=== PATIENT | female | born 1985 | race Caucasian/White ===

== ENCOUNTER 2021-07-17 10:43 | Outpatient (REF) | payer SELFPAY ==
[2021-07-17 13:24] LABS: Binax Internal Control QC Valid; Binax Now Covid-19 Ag Negative (Negative)
== END 2021-07-17 10:44 | disposition home or self-care (01) ==
LOC: HO.LAB 10:43
PROVIDERS: Visit Provider Internal Medicine
DX: Z20.822 Contact with and (suspected) exposure to COVID-19 (principal)
CPT/HCPCS: C9803

== ENCOUNTER 2022-06-06 08:06 | Outpatient (REF) | payer OTHER, SELFPAY ==
[2022-06-06 11:17] LABS: MANUAL DIFF FLAG NO
[2022-06-06 11:27] LABS: Basophils Absolute Auto 0.1 X10*3/uL (0.0-0.2); Basophils Percent Auto 0.8 % (0-2); Eosinophils Absolute Auto 0.6 X10*3/uL (0.0-0.4); Eosinophils Percent Auto 5.2 % (0-4); Hematocrit 44.4 % (37.0-47.0); Imm Gran Abs Auto 0.24 X10*3/uL (0.00-0.03); Imm Gran Pct Auto 1.9 % (0.0-0.4); Lymphocytes Percent Auto 32.5 % (20-40); Mean Corpuscular HGB Conc 31.5 g/dl (31.0-35.0); Mean Corpuscular Hemoglobin 29.9 pg (27.0-33.0); Mean Corpuscular Volume 94.7 fL (80.0-98.0); Mean Platelet Volume 9.5 fL (9.4-12.3); Monocytes Absolute Auto 0.6 X10*3/uL (0.1-1.2); Neutrophils Absolute Auto 6.7 x10*3/uL (2.0-8.3); Neutrophils Percent Auto 54.6 % (45-73); Platelet Count 352 X10*3/uL (160-400); Red Blood Count 4.69 X10*6/uL (4.20-5.50); Red Cell Distribution Width 13.1 % (11.0-16.0); White Blood Count 12.4 X10*3/uL (4.8-10.8)
[2022-06-06 12:11] LABS: Alanine Aminotransferase 17 U/L (0-31); Alkaline Phosphatase 117 U/L (39-117); Anion Gap 11 (12-20); Aspartate Amino Transferase 12 U/L (5-31); Bilirubin Total 0.2 mg/dL (0.0-1.0); Blood Urea Nitrogen 9 mg/dL (9-16); Calcium 9.5 mg/dL (8.4-10.2); Carbon Dioxide 27 mmol/L (22-29); Chloride 103 mmol/L (96-108); Cholesterol 158 mg/dL; Estimated Glomerular Filt Rate > 60; Glucose Fasting 88 mg/dL (60-99); HDL Cholesterol 36 mg/dL; LDL Cholesterol Calculated 96 mg/dl; Potassium 4.4 mmol/L (3.3-5.1); Sodium 137 mmol/L (135-145); TSH reflex Free T4 2.24 uIU/mL (0.32-4.0); Total Protein 6.9 g/dL (6.5-8.0); Triglycerides 132 mg/dL
[2022-06-06 12:15] LABS: Vitamin B12 245 pg/mL (200-900)
[2022-06-11 13:13] LABS: Vitamin D 25-OH, D2 <4 ng/mL; Vitamin D 25-OH, D3 24 ng/mL; Vitamin D 25-OH, Total 24 ng/mL (30-100)
== END 2022-06-06 08:07 | disposition home or self-care (01) ==
LOC: HO.HMGCLDS 08:06
PROVIDERS: PCP Internal Medicine; Visit Provider Internal Medicine
DX: Z00.01 Encounter for general adult medical examination with abnormal findings (principal); F31.9 Bipolar disorder, unspecified; F41.0 Panic disorder [episodic paroxysmal anxiety]; E66.01 Morbid (severe) obesity due to excess calories
CPT/HCPCS: 36415; 80053; 80061; 82306; 82607; 84443; 85025

== ENCOUNTER 2022-10-24 13:20 | Outpatient (REF) | payer OTHER, SELFPAY ==
[2022-10-31 04:44] LABS: HPV mRNA E6/E7 rflx Not Detected (Not Detected)
== END 2022-10-24 13:21 | disposition home or self-care (01) ==
LOC: HO.LNP 13:20
PROVIDERS: PCP Internal Medicine; Visit Provider Advanced Practice Midwife
DX: Z01.419 Encounter for gynecological examination (general) (routine) without abnormal findings (principal); Z11.51 Encounter for screening for human papillomavirus (HPV)
CPT/HCPCS: 87624; 88142

== ENCOUNTER → 2023-01-02 15:32 | Outpatient (BNVA) | payer OTHER, SELFPAY | PROVIDERS: PCP Internal Medicine; Visit Provider Advanced Practice Midwife | DX: Z30.433 Encounter for removal and reinsertion of intrauterine contraceptive device (principal) | CPT/HCPCS: 58300; 58301; 81025; J7298 ==

== ENCOUNTER 2023-01-21 14:59 | Outpatient (AMB) | payer OTHER, SELFPAY ==
--- NOTE | 2023-01-21 15:03 | A.OFFPC_ITS ---
Vital Signs 01/21/23 15:05 Height 5 ft 7.5 in Weight 348 lb BMI 53.7 BP 118/80 Blood Pressure Location Lt brachial Position Sitting Pulse 92 Pulse Source Pulse Oximeter Pulse Oximetry (%) 99 Oxygen Delivery Method Room Air Intake Visit Reasons: 4 month follow up Allergies No Known Allergies Allergy (Verified 01/21/23 15:03) Medication List - Last Reconciled 01/21/23 by Kike Slaughter MD desvenlafaxine succinate ER 25 mg PO QAM imipramine HCl 100 mg PO BID levonorgestrel (Mirena) intrauterine lisinopril 20 mg PO QAM lorazepam 0.5 mg PO DAILY PRN Tobacco use date assessed: 01/21/23 Dental Screening Dental Screen Date: 01/21/23 Did you have a dental visit in the last 12 months?: Yes Did you have a dental problem in the last 6 months where you did not have access to dental care?: No Was dental information given to patient?: Patient has dentist HPI 4 month follow up HPI Details Patient is 37-year-old female was last seen May of last year for her initial visit and then did not come in for follow-up for radius reasons Patient has a history of bipolar disorder she is taking desvenlafaxine 25 mg, imipramine 100 mg b.i.d., and lorazepam only rarely. She was given 30 tablets in May and she has taken it only once Blood pressure is stable patient is on lisinopril 20 mg BMI is elevated patient is morbidly obese with BMI of 53.7 have difficulty losing weight. Patient says that she had her sister due to COVID related complications and after that she has gained confidence to be more independent She has finally started working as well. I have placed order for her to repeat labs and return for physical examination patient have appointment in May [facility], [facility] Medical History Encounter for IUD removal and reinsertion H/O bipolar disorder History of anxiety Surgical History Hx of section Hx of cholecystectomy Family History Father Mental health disorder Maternal Grandmother Mental health disorder Social History Housing: House Patient Tobacco Use Status: Current someday Tobacco user e-Cigarette/Vaping Use: Currently Using Substance Use Type: Marijuana service: No Current occupational status: unemployed Sexual orientation: Straight/Heterosexual Gender identity: Female Cognitive needs: No Hearing needs: No Vision needs: Yes Questionnaire PHQ-9 Over the last 2 weeks, how often have you been bothered by any of the following problems? 1. Little interest or pleasure in doing things: more than half the days 2. Feeling down, depressed, or hopeless: more than half the days 3. Trouble falling or staying asleep, or sleeping too much: several days 4. Feeling tired or having little energy: several days 5. Poor appetite or overeating: several days 6. Feeling bad about yourself - or that you are a failure or have let yourself or your family down: nearly every day 8. Moving or speaking so slowly that other people could have noticed. Or the opposite - being so fidgety or restless that you have been moving around a lot more than usual: more than half the days 9. Thoughts that you would be better off or of hurting yourself in some way: more than half the days Source: Developed by Drs. Gabriel Glover, Sabina Betts, Manish Chaudhry and colleagues, with an educational piper from [employer]. Thrive Questionnaire Date Thrive assessed: 01/21/23 I am a: Patient What is your living situation today?: I have a steady place to live Within the past 12 months, did the food you bought not last and you didn't have the money to get more?: Never true Within the past 12 months, did you worry whether your food would run out before you got money to buy more?: Never true Do you have trouble paying for medicines?: No Do you have trouble getting transportation to medical appointments?: No Do you have trouble paying your heating and electricity bill?: No Do you have trouble taking care of your child, family member or friend?: No Do you have trouble with day-to-day activities such as bathing, preparing meals, shopping, managing finances, etc.?: No Are you currently unemployed and looking for a job?: No Are you interested in more education?: No AUDIT C Alcohol Use Questionnaire (AUDIT-C) 1. How often do you have a drink containing alcohol?: Never Total Score: 0 SALVADOR-7 AMB Questionnaire SALVADOR-7 Date SALVADOR - 7 assessed: 01/21/23 Feeling nervous, anxious, or on edge: 2 = More than half the days Not being able to stop or control worryin = More than half the days Worrying too much about different things: 2 = More than half the days Trouble relaxin = Several days Being so restless that it is hard to sit still: 2 = More than half the days Becoming easily annoyed or irritable: 2 = More than half the days Feeling afraid as if something awful might happen: 0 = Not at all Total SALVADOR-7 score (0-4 normal; 5-9 mild; 10-14 moderate; 15-21 severe): 11 Source: Developed by Drs. Gabriel Glover, Sabina Betts, Manish Chaudhry and colleagues, with an educational piper from [employer]. Review of Systems Const Denies chills and Denies fever(s) ENT Denies epistaxis and Denies nasal discharge Card Denies chest pain Resp Denies chest congestion, Denies cough and Denies hemoptysis GI Denies diarrhea and Denies nausea Skin/Breast Denies rash Neuro Reports no additional complaints Psych Reports no additional complaints Endo Reports no additional complaints Physical exam (Primary Care) Vital Signs: Last Vital Signs Pulse 92 01/21/23 15:05 BP 118/80 01/21/23 15:05 Pulse Ox 99 01/21/23 15:05 Oxygen Delivery Method Room Air 01/21/23 15:05 BMI result Body Mass Index 53.7 Tobacco/Smoking Status: Tobacco use Status Tobacco use date assessed 01/21/23 01/21/23 15:03 Patient Tobacco Use Status Current someday Tobacco 01/21/23 15:03 e-Cigarette/Vaping Use Currently Using 01/21/23 15:03 Thrive Assessment: Date of Thrive Assessment Date Thrive assessed 01/21/23 01/21/23 15:13 Const General: cooperative, comfortable and no acute distress Orientation/consciousness: patient oriented x3 HENMT Head: Yes normocephalic Eyes General: appearance normal, both eyes and all related structures Neck Neck: Yes supple Resp Effort & Inspection: normal respiratory effort, no cough and no stridor Cardio Rhythm: regular rhythm Heart sounds: S1 normal heart sound present and S2 normal heart sound present Skin General skin exam: turgor normal Neuro General: patient oriented x3, tone normal and moves all extremities Extrem Right lower extremity: no edema Left lower extremity: no edema Assessment and Plan Assessment & Plan (1) Major depression, recurrent: Code(s): F33.9 - Major depressive disorder, recurrent, unspecified (2) Bipolar 1 disorder: Code(s): F31.9 - Bipolar disorder, unspecified (3) Panic anxiety syndrome: Code(s): F41.0 - Panic disorder [episodic paroxysmal anxiety] (4) Morbid obesity due to excess calories: Code(s): E66.01 - Morbid (severe) obesity due to excess calories Plan Patient is 37-year-old female was last seen May of last year for her initial visit and then did not come in for follow-up for radius reasons Patient has a history of bipolar disorder she is taking desvenlafaxine 25 mg, imipramine 100 mg b.i.d., and lorazepam only rarely. She was given 30 tablets in May and she has taken it only once Blood pressure is stable patient is on lisinopril 20 mg BMI is elevated patient is morbidly obese with BMI of 53.7 have difficulty losing weight. Patient says that she had her sister due to COVID related complications and after that she has gained confidence to be more independent She has finally started working as well. I have placed order for her to repeat labs and return for physical examination patient have appointment in May Orders: Orders Complete Blood Count Auto Diff Today E66.01 - Morbid (severe) obesity due to excess calories, F31.9 - Bipolar disorder, unspecified, F33.9 - Major depressive disorder, recurrent, unspecified, F41.0 - Panic disorder [episodic paroxysmal anxiety] Comprehensive [place]. Panel Fast Today E66.01 - Morbid (severe) obesity due to excess calories, F31.9 - Bipolar disorder, unspecified, F33.9 - Major depressive disorder, recurrent, unspecified, F41.0 - Panic disorder [episodic paroxysmal anxiety] Lipid Panel Today E66.01 - Morbid (severe) obesity due to excess calories, F31.9 - Bipolar disorder, unspecified, F33.9 - Major depressive disorder, recurrent, unspecified, F41.0 - Panic disorder [episodic paroxysmal anxiety] TSH reflex Free T4 Today E66.01 - Morbid (severe) obesity due to excess calories, F31.9 - Bipolar disorder, unspecified, F33.9 - Major depressive disorder, recurrent, unspecified, F41.0 - Panic disorder [episodic paroxysmal anxiety] Medications: Changed From imipramine HCl 100 mg PO BID To imipramine HCl 100 mg (2 x 50 mg) PO BID 360 tabs 0RF 90 days From lisinopril 20 mg PO QAM 30 tabs 1RF To lisinopril 20 mg PO QAM 90 tabs 0RF 90 days From desvenlafaxine succinate ER 25 mg PO QAM 30 tabs 0RF To desvenlafaxine succinate ER 25 mg PO QAM 90 tabs 0RF 90 days Coding Level of Care Code Est Pt Level 4 (47154) Diagnoses Major depression, recurrent F33.9 Bipolar 1 disorder F31.9 Panic anxiety syndrome F41.0 Morbid obesity due to excess calories E66.01
[2023-01-21 15:05] VITALS: BP 118/80; PULSE 92; O2SAT 99; BMI 53.7
== END 2023-01-21 16:15 | disposition home or self-care (01) ==
PROVIDERS: Visit Provider Internal Medicine
DX: F31.9 Bipolar disorder, unspecified (principal); E66.01 Morbid (severe) obesity due to excess calories; Z68.36 Body mass index [BMI] 36.0-36.9, adult; F41.0 Panic disorder [episodic paroxysmal anxiety]
CPT/HCPCS: 99214

== ENCOUNTER 2023-01-22 07:20 | Outpatient (REF) | payer OTHER, SELFPAY ==
[2023-01-22 11:23] LABS: MANUAL DIFF FLAG NO
[2023-01-22 11:47] LABS: Basophils Absolute Auto 0.1 X10*3/uL (0.0-0.2); Basophils Percent Auto 0.9 % (0-2); Eosinophils Absolute Auto 0.5 X10*3/uL (0.0-0.4); Eosinophils Percent Auto 4.2 % (0-4); Hematocrit 43.9 % (37.0-47.0); Hemoglobin 13.9 g/dl (12.0-16.0); Imm Gran Abs Auto 0.47 X10*3/uL (0.00-0.03); Imm Gran Pct Auto 3.8 % (0.0-0.4); Lymphocytes Absolute Auto 3.3 X10*3/uL (1.2-4.9); Lymphocytes Percent Auto 27.1 % (20-40); Mean Corpuscular HGB Conc 31.7 g/dl (31.0-35.0); Mean Corpuscular Hemoglobin 29.8 pg (27.0-33.0); Mean Platelet Volume 9.6 fL (9.4-12.3); Monocytes Absolute Auto 0.7 X10*3/uL (0.1-1.2); Monocytes Percent Auto 5.6 % (2-11); Neutrophils Absolute Auto 7.2 x10*3/uL (2.0-8.3); Neutrophils Percent Auto 58.4 % (45-73); Platelet Count 335 X10*3/uL (160-400); Red Blood Count 4.67 X10*6/uL (4.20-5.50); White Blood Count 12.3 X10*3/uL (4.8-10.8)
[2023-01-22 12:08] LABS: Alanine Aminotransferase 26 U/L (0-31); Albumin Level 3.9 g/dL (3.5-5.0); Alkaline Phosphatase 106 U/L (39-117); Aspartate Amino Transferase 18 U/L (5-31); Bilirubin Total 0.3 mg/dL (0.0-1.0); Blood Urea Nitrogen 9 mg/dL (9-16); Calcium 9.5 mg/dL (8.4-10.2); Chloride 106 mmol/L (96-108); Cholesterol 154 mg/dL; Estimated Glomerular Filt Rate > 60; Glucose Fasting 89 mg/dL (60-99); HDL Cholesterol 43 mg/dL; LDL Cholesterol Calculated 97 mg/dl; Potassium 4.5 mmol/L (3.3-5.1); Sodium 139 mmol/L (135-145); Total Protein 7.3 g/dL (6.5-8.0); Triglycerides 74 mg/dL
[2023-01-22 12:28] LABS: TSH reflex Free T4 3.31 uIU/mL (0.32-4.0)
[2023-01-22 18:09] LABS: Carbon Dioxide 23 mmol/L (22-29)
== END 2023-01-22 07:21 | disposition home or self-care (01) ==
LOC: HO.HMGCLDS 07:20
PROVIDERS: PCP Internal Medicine; Visit Provider Internal Medicine
DX: E66.01 Morbid (severe) obesity due to excess calories (principal); F31.9 Bipolar disorder, unspecified; F41.0 Panic disorder [episodic paroxysmal anxiety]
CPT/HCPCS: 36415; 80053; 80061; 84443; 85025

== ENCOUNTER 2023-02-05 15:04 | Outpatient (AMB) | payer OTHER, SELFPAY ==
[2023-02-05 15:18] VITALS: BP 114/74; BMI 53.7
--- NOTE | 2023-02-05 15:18 | A.OFFVIS_ITS ---
Intake Vital Signs 02/05/23 15:18 Height 5 ft 7.5 in Weight 348 lb BMI 53.7 BP 114/74 Intake Visit Reasons: IUD check Intake Note: The patient agreed to use of a medical billing coordinator during this encounter. Scribed for DAPHNE Hernandez by Gayathri Rico medical billing coordinator, on 02/05/2023 at 3:38 pm EST. High Speed Printer Operator: High Speed Printer Operator Present (Amy) Accompanied by: Daughter Allergies No Known Allergies Allergy (Verified 02/05/23 15:18) HPI HPI Comments History of Present Illness Details She is presenting for IUD check. She had the Mirena IUD placed on 01/02/23. She has no concerns. Denies pain, abnormal discharge, or other concerns. [facility] Medical History Encounter for IUD removal and reinsertion H/O bipolar disorder History of anxiety Surgical History Hx of section Hx of cholecystectomy Family History Father Mental health disorder Maternal Grandmother Mental health disorder Social History Housing: House Patient Tobacco Use Status: Current someday Tobacco user e-Cigarette/Vaping Use: Currently Using Substance Use Type: Marijuana service: No Current occupational status: unemployed Sexual orientation: Straight/Heterosexual Gender identity: Female Cognitive needs: No Hearing needs: No Vision needs: Yes Female Reproductive History Menstrual control method: progestin IUCD (Mirena 01/02/23, IUD strings visible 02/05/23) Physical Exam Vital Signs: Last Vital Signs BP 114/74 02/05/23 15:18 BMI result Body Mass Index 53.7 Const General: cooperative, healthy appearing, comfortable, no acute distress, well developed, alert and awake Other: large vulvar pannus; more on the right side General: Yes bladder normal to palpation External Female Exam: normal external appearance and normal appearance of the urethra Speculum Exam - Vagina: normal appearance of the vagina, normal palpation and normal vaginal discharge Speculum Exam - Cervix: normal appearance of the cervix, normal palpation and Other cervical findings present (IUD strings visible) Bimanual exam- vagina & uterus: normal bimanual exam, normal palpation, bladder normal to palpation and normal palpation Bimanual Exam- Adnexa, other: normal adnexae and no masses Assessment & Plan Assessment & Plan (1) IUD surveillance: Code(s): Z30.431 - Encounter for routine checking of intrauterine contraceptive device Plan: Discussed: Bleeding tends to taper down, some women do not bleed at all for months, some have unscheduled and random bleeding. Monitor bleeding and cramps for the next 1-2 months and contact office with any concerns or questions. All of her questions and concerns were addressed to the best of my ability and shared decision making. She is agreeable to plan of care. Coding Level of Care Code Est Pt Level 2 (07223) Diagnoses IUD surveillance Z30.431
== END 2023-02-05 15:45 | disposition home or self-care (01) ==
LOC: HO.HWS 15:05
PROVIDERS: PCP Internal Medicine; Visit Provider Advanced Practice Midwife
DX: Z30.431 Encounter for routine checking of intrauterine contraceptive device (principal)
CPT/HCPCS: 99212

== ENCOUNTER → 2023-02-05 15:04 | Outpatient (BNVA) | payer OTHER, SELFPAY | PROVIDERS: PCP Internal Medicine; Visit Provider Advanced Practice Midwife ==

== ENCOUNTER 2023-02-26 08:11 | Outpatient (AMB) | payer OTHER, SELFPAY ==
--- NOTE | 2023-02-26 08:21 | AM.OFFWIN_ITS ---
Intake Vital Signs 02/26/23 08:22 Height 5 ft 7.5 in Weight 350 lb BMI 54.0 BP 130/72 Blood Pressure Location Rt brachial Position Sitting Pulse 112 H Pulse Source Pulse Oximeter Temp 98.9 F Temp Source Temporal Artery Scan Pulse Oximetry (%) 97 Oxygen Delivery Method Room Air Intake Visit Reasons: EP Flu like symptms [phone] Intake Note: pt is here for c/o cold symptoms since friday afternoon, fever, body aches, congestion Patient Tobacco Use Status: Current someday Tobacco user Allergies No Known Allergies Allergy (Verified 02/26/23 09:03) Medication List - Last Reconciled 02/26/23 by Thierno Tripp MD desvenlafaxine succinate ER 25 mg PO QAM 90 days imipramine HCl 100 mg (2 x 50 mg) PO BID 90 days levonorgestrel (Mirena) intrauterine lisinopril 20 mg PO QAM 90 days lorazepam 0.5 mg PO DAILY PRN Do you need a note to return to daycare/school/sports/work: Yes HPI EP Flu like symptms [phone] HPI Details Patient presents for a sick visit. Reporting symptoms of sinus congestion, sore throat and difficulty swallowing. Low-grade fever. No family member is sick. No recent travel. Patient reports symptoms of malaise and fatigue. [facility] Medical History Encounter for IUD removal and reinsertion H/O bipolar disorder History of anxiety Surgical History Hx of section Hx of cholecystectomy Family History Father Mental health disorder Maternal Grandmother Mental health disorder Social History Housing: House Patient Tobacco Use Status: Current someday Tobacco user e-Cigarette/Vaping Use: Currently Using Substance Use Type: Marijuana service: No Current occupational status: unemployed Sexual orientation: Straight/Heterosexual Gender identity: Female Cognitive needs: No Hearing needs: No Vision needs: Yes Physical Exam Vital Signs: Last Vital Signs Temp 98.9 F 08/23/23 08:22 Pulse 112 H 02/26/23 08:22 BP 130/72 02/26/23 08:22 Pulse Ox 97 02/26/23 08:22 Oxygen Delivery Method Room Air 02/26/23 08:22 BMI result Body Mass Index 54.0 Const General: cooperative and healthy appearing Nutritional Appearance: well nourished Orientation/consciousness: patient oriented x3 Limitations: no limitations HEENT Head: Yes normal to inspection Eyes General: appearance normal, both eyes and all related structures Neck Neck: Yes normal visual inspection Chest Chest palpation & inspection: normal palpation of entire chest wall Resp Effort & Inspection: normal respiratory effort Neuro General: patient oriented x3 Assessment & Plan Assessment & Plan (1) Upper respiratory tract infection: Code(s): J06.9 - Acute upper respiratory infection, unspecified Plan: Antibiotics ordered. Increase fluid intake. Tylenol for aches and pains. If symptoms worsen, follow-up here for a recheck. Coding Level of Care Code Est Pt Level 3 (35537) Diagnoses Upper respiratory tract infection J06.9
[2023-02-26 08:22] VITALS: BP 130/72; PULSE 112; TEMP 37.2; O2SAT 97; BMI 54.0
== END 2023-02-26 09:03 | disposition home or self-care (01) ==
PROVIDERS: PCP Internal Medicine; Visit Provider Internal Medicine
DX: J06.9 Acute upper respiratory infection, unspecified (principal)
CPT/HCPCS: 99213

== ENCOUNTER 2023-05-23 09:51 | Outpatient (AMB) | payer OTHER, SELFPAY ==
--- NOTE | 2023-05-23 09:55 | MHC.PC.OV ---
Vital Signs 05/23/23 09:56 Height 5 ft 7.5 in Weight 359 lb 2 oz BMI 55.4 BP 132/76 Blood Pressure Location Rt brachial Position Sitting Pulse 105 H Pulse Source Pulse Oximeter Pulse Oximetry (%) 99 Oxygen Delivery Method Room Air Intake Visit Reasons: Annual PE Allergies No Known Allergies Allergy (Verified 05/23/23 09:59) Medication List - Last Reconciled 05/23/23 by Kike Slaughter MD desvenlafaxine succinate ER 25 mg PO QAM 90 days imipramine HCl 100 mg (2 x 50 mg) PO BID 90 days levonorgestrel (Mirena) intrauterine lisinopril 20 mg PO QAM 90 days lorazepam 0.5 mg PO DAILY PRN Tobacco use date assessed: 05/23/23 HPI Annual PE HPI Details Patient is a 37-year-old female came in today for physical examination Patient have a diagnosis of bipolar disorder since the 8th grade She was seeing a psychiatrist who has retired Currently all her medications are through PCP office, patient knows to have a follow-up every 3 months. She is also morbidly obese at 55.4 BMI, patient says that she went to weight loss program [facility] couple of years ago But they told her that they cannot help her. Patient id managed to lose some weight on her own. She is established with [facility] Labs are needed, order placed to be done fasting [facility] Medical History Encounter for IUD removal and reinsertion History of anxiety H/O bipolar disorder Surgical History Hx of section Hx of cholecystectomy Family History Father Mental health disorder Maternal Grandmother Mental health disorder Social History Housing: House Patient Tobacco Use Status: Current someday Tobacco user e-Cigarette/Vaping Use: Currently Using Substance Use Type: Marijuana service: No Current occupational status: unemployed Sexual orientation: Straight/Heterosexual Gender identity: Female Cognitive needs: No Hearing needs: No Vision needs: Yes Questionnaire PHQ-9 Over the last 2 weeks, how often have you been bothered by any of the following problems? 1. Little interest or pleasure in doing things: more than half the days 2. Feeling down, depressed, or hopeless: more than half the days 3. Trouble falling or staying asleep, or sleeping too much: several days 4. Feeling tired or having little energy: several days 5. Poor appetite or overeating: several days 6. Feeling bad about yourself - or that you are a failure or have let yourself or your family down: more than half the days 7. Trouble concentrating on things, such as reading the newspaper or watching television: several days 8. Moving or speaking so slowly that other people could have noticed. Or the opposite - being so fidgety or restless that you have been moving around a lot more than usual: more than half the days 9. Thoughts that you would be better off or of hurting yourself in some way: several days Total score: 13 Depression Screening Interpretation: Positive Depression Screening Follow-up: Existing condition and In treatment Depression Screening Done: Yes 05547 - PHQ-9 Billing: Yes Source: Developed by Drs. Gabriel Glover, Sabina Betts, Manish Chaudhry and colleagues, with an educational piper from [employer]. Thrive Questionnaire Date Thrive assessed: 01/21/23 AUDIT C Alcohol Use Questionnaire (AUDIT-C) 1. How often do you have a drink containing alcohol?: Monthly or less 2. How many drinks containing alcohol do you have on a typical day when you are drinking?: 1 or 2 3. How often do you have six or more drinks on one occasion?: Never Total Score: 1 Score Reviewed/Action Taken: No SALVADOR-7 AMB Questionnaire SALVADOR-7 Date SALVADOR - 7 assessed: 01/21/23 Source: Developed by Drs. Gabriel Glover, Manish Julio and colleagues, with an educational piper from [employer]. Review of Systems Const Denies chills, Denies fever(s) and Denies headache(s) Eyes Denies blurry vision ENT Denies headache(s), Denies nasal discharge, Denies nasal obstruction, Denies odynophagia and Denies sinus pain Card Denies chest pain at rest and Denies chest pain with activity Resp Denies cough and Denies hemoptysis GI Denies diarrhea, Denies odynophagia, Denies vomiting and Denies hematemesis Reports as per HPI Musc Denies abnormal gait Skin/Breast Reports as per HPI Neuro Denies Neuro-related abnormal movements, Denies Abnormal speech present, Denies abnormal gait, Denies headache(s) and Denies Sensory deficit (Neuro) Psych Denies mood swings and Denies paranoia Endo Reports as per HPI Braxton/Lymph Reports as per HPI Aller/Immun Reports as per HPI Physical exam (Primary Care) Vital Signs: Last Vital Signs Pulse 105 H 05/23/23 09:56 BP 132/76 05/23/23 09:56 Pulse Ox 99 05/23/23 09:56 Oxygen Delivery Method Room Air 05/23/23 09:56 BMI result Body Mass Index 55.4 Tobacco/Smoking Status: Tobacco use Status Tobacco use date assessed 05/23/23 05/23/23 09:59 Patient Tobacco Use Status Current someday Tobacco 05/23/23 09:58 e-Cigarette/Vaping Use Currently Using 05/23/23 09:58 PHQ-9: PHQ-9 Score PHQ-9: Total score 13 05/23/23 10:40 Depression Screening Interpretation: Positive Depression Screening Follow-up: Existing condition and In treatment Thrive Assessment: Date of Thrive Assessment Date Thrive assessed 01/21/23 05/23/23 09:58 Const General: cooperative, comfortable and no acute distress Orientation/consciousness: patient oriented x3 HENMT Head: Yes normocephalic and Yes atraumatic Eyes General: appearance normal, both eyes and all related structures Pupils: Equal, round and reactive pupils present EOM: EOMs intact bilaterally Neck Neck: Yes supple and No lymphadenopathy Thyroid: Thyroid normal Lymphatic: no lymphadenopathy noted Resp Effort & Inspection: normal respiratory effort and able to speak in complete sentences Auscultation: clear to auscultation bilaterally Cardio Heart sounds: S1 normal heart sound present and S2 normal heart sound present GI Palpation (GI): Soft to palpation and nontender Auscultation: normal bowel sounds General: Yes no CVA tenderness Back/Spine/Pelvis Back: no CVA tenderness Skin General skin exam: elasticity normal and turgor normal Neuro General: patient oriented x3 and gait normal Cranial nerves: Yes Equal, round and reactive pupils present Speech: No Abnormal speech present Sensory Exam: No Sensory deficit (Neuro) Coordination: Romberg test negative Extrem General: Yes normal exam except as noted and No edema Assessment and Plan Assessment & Plan (1) Encounter for general adult medical examination with abnormal findings: Code(s): Z00.01 - Encounter for general adult medical examination with abnormal findings (2) Major depression, recurrent: Code(s): F33.9 - Major depressive disorder, recurrent, unspecified Qualifiers: Active/Remission status: in partial remission Qualified Code(s): F33.41 - Major depressive disorder, recurrent, in partial remission (3) Bipolar 1 disorder: Code(s): F31.9 - Bipolar disorder, unspecified (4) Morbid obesity due to excess calories: Code(s): E66.01 - Morbid (severe) obesity due to excess calories (5) Panic anxiety syndrome: Code(s): F41.0 - Panic disorder [episodic paroxysmal anxiety] (6) Stress incontinence in female: Code(s): N39.3 - Stress incontinence (female) (male) Plan Patient is a 37-year-old female came in today for physical examination Patient have a diagnosis of bipolar disorder since the 8th grade She was seeing a psychiatrist who has retired Currently all her medications are through PCP office, patient knows to have a follow-up every 3 months. She is also morbidly obese at 55.4 BMI, patient says that she went to weight loss program [facility] couple of years ago But they told her that they cannot help her. Patient id managed to lose some weight on her own. She is established with [facility] Labs are needed, order placed to be done fasting Patient is complaining of leakage of urine when she coughs. She is already trying Kayjol exercises I have sent [facility] prescription to see that helps patient She is to get back to me in 3 weeks to update me Orders: Orders Comprehensive [place]. Panel Fast Today E66.01 - Morbid (severe) obesity due to excess calories, F31.9 - Bipolar disorder, unspecified, F33.9 - Major depressive disorder, recurrent, unspecified, F41.0 - Panic disorder [episodic paroxysmal anxiety], N39.3 - Stress incontinence (female) (male), Z00.01 - Encounter for general adult medical examination with abnormal findings TSH reflex Free T4 Today E66.01 - Morbid (severe) obesity due to excess calories, F31.9 - Bipolar disorder, unspecified, F33.9 - Major depressive disorder, recurrent, unspecified, F41.0 - Panic disorder [episodic paroxysmal anxiety], N39.3 - Stress incontinence (female) (male), Z00.01 - Encounter for general adult medical examination with abnormal findings Complete Blood Count Auto Diff Today E66.01 - Morbid (severe) obesity due to excess calories, F31.9 - Bipolar disorder, unspecified, F33.9 - Major depressive disorder, recurrent, unspecified, F41.0 - Panic disorder [episodic paroxysmal anxiety], N39.3 - Stress incontinence (female) (male), Z00.01 - Encounter for general adult medical examination with abnormal findings Lipid Panel Today E66.01 - Morbid (severe) obesity due to excess calories, F31.9 - Bipolar disorder, unspecified, F33.9 - Major depressive disorder, recurrent, unspecified, F41.0 - Panic disorder [episodic paroxysmal anxiety], N39.3 - Stress incontinence (female) (male), Z00.01 - Encounter for general adult medical examination with abnormal findings Medications: New solifenacin (Vesicare) 5 mg PO DAILY 30 tabs 0RF Urine incontinence 30 days Changed From lorazepam 0.5 mg PO DAILY PRN To lorazepam 0.5 mg PO DAILY PRN 30 tabs 0RF anxiety 90 days Refilled desvenlafaxine succinate ER 25 mg PO QAM 90 tabs 0RF 90 days imipramine HCl 100 mg (2 x 50 mg) PO BID 360 tabs 0RF 90 days lisinopril 20 mg PO QAM 90 tabs 0RF 90 days Coding Level of Care Code Est Pt Prev Care 18-39y(43424) Diagnoses Encounter for general adult medical examination with abnormal findings Z00.01 Recurrent major depressive disorder, in partial remission F33.41 Active/Remission status: in partial remission Bipolar 1 disorder F31.9 Morbid obesity due to excess calories E66.01 Panic anxiety syndrome F41.0 Stress incontinence in female N39.3
[2023-05-23 09:56] VITALS: BP 132/76; PULSE 105; O2SAT 99; BMI 55.4
== END 2023-05-23 10:35 | disposition home or self-care (01) ==
PROVIDERS: Visit Provider Internal Medicine
DX: Z00.00 Encounter for general adult medical examination without abnormal findings (principal); F31.9 Bipolar disorder, unspecified; E66.01 Morbid (severe) obesity due to excess calories; Z68.43 Body mass index [BMI] 50.0-59.9, adult; F41.0 Panic disorder [episodic paroxysmal anxiety]; N39.3 Stress incontinence (female) (male)
CPT/HCPCS: 99395

== ENCOUNTER 2023-06-16 09:17 | Outpatient (AMB) | payer OTHER, SELFPAY ==
--- NOTE | 2023-06-16 10:06 | MHC.OFFWIV ---
Intake Vital Signs 06/16/23 10:07 Height 5 ft 7.5 in Weight 157.85 kg BMI 53.7 BP 116/70 Blood Pressure Location Lt brachial Position Sitting Pulse 89 Pulse Source Pulse Oximeter Temp 97.5 F Temp Source Temporal Artery Scan Pulse Oximetry (%) 97 Oxygen Delivery Method Room Air Intake Visit Reasons: EST/cough fever [phone] Intake Note: pt is here today for cough fever started friday Patient Tobacco Use Status: Current someday Tobacco user Allergies No Known Allergies Allergy (Verified 06/16/23 10:06) Do you need a note to return to daycare/school/sports/work: Yes HPI HPI Comments History of Present Illness Details 37-year-old who female presents with fatigue, malaise, myalgias, cough, fevers Tmax 101 Fand chills that started 3 days ago suddenly..? Multiple cowerkers have kids at home who are sick w/ RSV.? Denies chest pain, shortness of breath, nausea, vomiting, abdominal pain, headache vision change, dizziness, weakness, changes in bowel or urinary habits Physical exam benign History and physical exam concerning for viral illness versus bronchitis versus flu versus COVID versus RSV.? Unlikely pneumonia, ACS, dissection, pulmonary embolism, acute respiratory distress Plan at this time viral testing will discharge patient home with supportive measures.? Educated patient on diagnosis and treatment plan, answered all question, patient verbalizes understanding.? At this time patient will be discharged home, advised to return with new or worsening symptoms.? Educated on worrisome signs and symptoms and when to return.? At this time I feel comfortable discharge home. [facility] Medical History Encounter for IUD removal and reinsertion History of anxiety H/O bipolar disorder Surgical History Hx of section Hx of cholecystectomy Family History Father Mental health disorder Maternal Grandmother Mental health disorder Social History Housing: House Patient Tobacco Use Status: Current someday Tobacco user e-Cigarette/Vaping Use: Currently Using Substance Use Type: Marijuana service: No Current occupational status: unemployed Sexual orientation: Straight/Heterosexual Gender identity: Female Cognitive needs: No Hearing needs: No Vision needs: Yes Review of Systems Const Details: Constitutional : No Weight loss, + Fever, + Chills, + Fatigue, + Malaise ENT/Mouth : No sore throat, No Rhinorrhea Eyes: No Eye Pain, No Swelling, No Redness Cardiovascular : No Chest Pain, No SOB, No Dyspnea on Exertion, No Orthopnea, No Edema, No Palpitations Respiratory : + Cough, No Sputum, No Wheezing Gastrointestinal : No Nausea, No Vomiting, No Diarrhea, No Constipation, No abdominal Pain, No Hematochezia, No Melena Genitourinary : No Dysuria, No Urinary Frequency, No Hematuria, Musculoskeletal : No joint pain, No Myalgias, No Joint Swelling Skin : No Skin Lesions, No rash Neuro : No Weakness, No Numbness, No Dizziness, No Headache Psych : No Anxiety/Panic, No Depression All other systems reviewed and are negative All systems reviewed & are unremarkable except as noted in HPI and below Physical Exam Vital Signs: Last Vital Signs Temp 97.5 F 06/16/23 10:07 Pulse 89 06/16/23 10:07 BP 116/70 06/16/23 10:07 Pulse Ox 97 06/16/23 10:07 Oxygen Delivery Method Room Air 06/16/23 10:07 BMI result Body Mass Index 53.7 vss Appearance: Alert.? Oriented X3.? No acute distress.? Head: Normocephalic, atraumatic, no step-offs or deformities Eyes: Pupils equal, round and reactive to light.? CVS: Normal heart rate and rhythm.? Pulses normal.? Respiratory: No respiratory distress.? Breath sounds normal.? Abdomen: Soft and nontender.? Skin: Skin warm and dry.? Normal skin color.? Normal skin turgor.? Extremities: No lower extremity edema.? No calf ttp. 5/5 strength to bilateral upper and lower extremities Neuro: Oriented X 3.? No motor deficit.? No sensory deficit. CN 2-12 intact Assessment & Plan Assessment & Plan (1) Viral illness: Code(s): B34.9 - Viral infection, unspecified Plan Take your medications as prescribed. If you were prescribed antibiotics today, it is important that you take your medication to their entirety, do not skip any doses, do not finish them early. Follow-up with your primary care provider this week. Return to the emergency department with new or worsening symptoms. Such as fevers, chills, chest pain, shortness of breath, nausea, vomiting, dizziness, headache, vision changes, lethargy In case of emergency call 911 Orders: Orders SARS-CoV2/FLU/RSV Today B34.9 - Viral infection, unspecified Medications: New prednisone 40 mg (2 x 20 mg) PO DAILY 10 tabs 0RF 5 days albuterol sulfate 90 mcg/actuation 2 puffs inhalation Q6H PRN 6.7 grams 0RF shortness of breath or wheezing Coding Level of Care Code Est Pt Level 3 (64292) Diagnoses Viral illness B34.9
[2023-06-16 10:07] VITALS: BP 116/70; PULSE 89; TEMP 36.4; O2SAT 97; BMI 53.7
== END 2023-06-16 10:36 | disposition home or self-care (01) ==
PROVIDERS: PCP Internal Medicine; Visit Provider Physician Assistant
DX: B34.9 Viral infection, unspecified (principal)
CPT/HCPCS: 99213

== ENCOUNTER 2023-06-16 13:39 | Outpatient (REF) | payer OTHER, SELFPAY ==
[2023-06-16 14:38] LABS: Influenza A PCR NEGATIVE (Negative); Influenza B PCR NEGATIVE (Negative); Resp Syncy Virus RNA Qual PCR POSITIVE (Negative); SARS COV2 PCR INHOUSE NEGATIVE (Negative)
== END 2023-06-16 13:40 | disposition home or self-care (01) ==
LOC: HO.HMGCLNP 13:39
PROVIDERS: Visit Provider Physician Assistant
DX: Z11.52 Encounter for screening for COVID-19 (principal); Z20.822 Contact with and (suspected) exposure to COVID-19; B34.9 Viral infection, unspecified
CPT/HCPCS: 0241U

== ENCOUNTER 2023-06-17 06:53 | Inpatient (IN) | payer OTHER, SELFPAY ==
[2023-06-17] VITALS (20 sets, daily range): BP systolic 127–172; BP diastolic 63–95; PULSE 87–115; RESP 15–26; TEMP 36.2–37.6; O2SAT 89–100; BMI 52.9
--- NOTE | ~2023-06-17 | XR_ITS ---
EXAMINATION: XR CHEST 2 VIEW CLINICAL INFORMATION: Cough, chest pain, shortness of breath COMPARISON: None TECHNIQUE: PA and lateral views of the chest obtained. FINDINGS: There are subtle patchy airspace opacities in both mid lung zones. There are no pleural effusions. The cardiomediastinal silhouette is unremarkable.. There are no pleural effusions. The cardiomediastinal silhouette is normal. XR/XR chest 2V IMPRESSION: Patchy bilateral perihilar opacities most suggestive of a viral pneumonitis or bronchopneumonia. Follow-up is suggested to confirm clearing.
[2023-06-17 07:25] LABS: MANUAL DIFF FLAG NO
[2023-06-17 07:30] LABS: Basophils Absolute Auto 0.1 X10*3/uL (0.0-0.2); Basophils Percent Auto 0.5 % (0-2); Eosinophils Percent Auto 0.1 % (0-4); Hematocrit 46.9 % (37.0-47.0); Hemoglobin 15.6 g/dl (12.0-16.0); Imm Gran Abs Auto 0.17 X10*3/uL (0.00-0.03); Imm Gran Pct Auto 1.4 % (0.0-0.4); Lymphocytes Absolute Auto 1.5 X10*3/uL (1.2-4.9); Lymphocytes Percent Auto 12.7 % (20-40); Mean Corpuscular HGB Conc 33.3 g/dl (31.0-35.0); Mean Corpuscular Hemoglobin 29.9 pg (27.0-33.0); Mean Corpuscular Volume 89.8 fL (80.0-98.0); Mean Platelet Volume 9.1 fL (9.4-12.3); Monocytes Absolute Auto 1.1 X10*3/uL (0.1-1.2); Monocytes Percent Auto 9.4 % (2-11); Neutrophils Absolute Auto 9.1 x10*3/uL (2.0-8.3); Neutrophils Percent Auto 75.9 % (45-73); Platelet Count 302 X10*3/uL (160-400); Red Blood Count 5.22 X10*6/uL (4.20-5.50); White Blood Count 11.9 X10*3/uL (4.8-10.8)
[2023-06-17 07:42] LABS: Alanine Aminotransferase 33 U/L (0-31); Albumin Level 4.5 g/dL (3.5-5.0); Alkaline Phosphatase 120 U/L (39-117); Anion Gap 15 (12-20); Aspartate Amino Transferase 23 U/L (5-31); Bilirubin Direct 0.2 mg/dL (0.0-0.5); Bilirubin Total 0.3 mg/dL (0.0-1.0); Blood Urea Nitrogen 7 mg/dL (9-16); Calcium 9.9 mg/dL (8.4-10.2); Carbon Dioxide 23 mmol/L (22-29); Chloride 104 mmol/L (96-108); Creatinine Clr Calc Pharmacy 157.2; Estimated Glomerular Filt Rate > 60; Glucose Random 117 mg/dL (60-115); Lipase 10 U/L (8-78); Potassium 3.4 mmol/L (3.3-5.1); Sodium 139 mmol/L (135-145); Total Protein 8.4 g/dL (6.5-8.0)
--- NOTE | 2023-06-17 07:57 | ECG_ITS ---
Test Reason : sob Blood Pressure : / mmHG Vent. Rate : 104 BPM Atrial Rate : 104 BPM P-R Int : 162 ms QRS Dur : 080 ms QT Int : 344 ms P-R-T Axes : 056 058 068 degrees QTc Int : 452 ms Sinus tachycardia Otherwise normal ECG No previous ECGs available Referred By: Jennie Choi Electronically Signed By:Amaury Ross
--- NOTE | 2023-06-17 08:02 | ED.GENADULT ---
HPI - General Adult General Chief complaint: Nausea/Vomiting/Diarrhea Stated complaint: Cold symptoms/ Vomiting/ Diarrhea Time Seen by Provider: 06/17/23 07:44 Source: patient and RN notes reviewed Mode of arrival: ambulatory Limitations: no limitations History of Present Illness HPI narrative: This is a 29-afos-idw-female, with a hx of bipolar disorder, anxiety, presenting to the emergency department with complaints of cough, fevers, diarrhea, nausea, vomiting, chest pain and shortness of breath x 5 days. Patient reports that the ago she felt a ?tickle in her throat? and a slight cough. She states that since then she has had intermittent fevers, max temp 102? temporally, with many episodes of diarrhea, greater than 10 episodes per day with vomiting. She is unable to keep down any fluids secondary to the cough and vomiting. She states that she works at [employer] and likely has been exposed to sick contacts. She reports that she had abdominal pain this morning at 2:00 a.m. which has since resolved. She also endorses constant chest pain, worsening with cough. She was seen at an urgent care yesterday and tested positive for RSV, was discharged on prednisone and inhaler. She has been unable to take the prednisone as she has been vomiting. And states that she is unsure how to use the inhaler as she has never had this before. She is a smoker, smokes 5-6 cigarettes a day, started smoking 8 months ago. Also with marijuana recreationally. No recent travel, surgery, hospitalization. No history of blood clots or cancer history. She has a hormonal IUD. No other complaints or concerns at this time. MD complaint: Cough, diarrhea, vomiting Onset (ago): day(s) Severity: moderate Quality: aching Pain Consistency: constant Relieving factors: none Exacerbating factors: none Associated symptoms: chest pain, cough, fever/chills, headaches, loss of appetite, malaise, nausea/vomiting and shortness of breath Treatments prior to arrival: none Related Data Home Medications Medication Instructions Recorded Confirmed levonorgestrel 21 mcg/24 hours (8 intrauterine 10/24/22 05/23/23 yrs) 52 mg intrauterine device (Mirena) Previous Rx's Medication Instructions Recorded desvenlafaxine succinate 25 mg 25 mg PO QAM 90 days #90 tabs 05/23/23 tablet,extended release 24 hr imipramine HCl 50 mg tablet 100 mg (2 x 50 mg) PO BID 90 days 05/23/23 #360 tabs lisinopril 20 mg tablet 20 mg PO QAM 90 days #90 tabs 05/23/23 lorazepam 0.5 mg tablet 0.5 mg PO DAILY PRN anxiety 90 05/23/23 days #30 tabs solifenacin 5 mg tablet (Vesicare) 5 mg PO DAILY Urine incontinence 06/03/23 30 days #30 tabs Allergies Allergy/AdvReac Type Severity Reaction Status Date / Time No Known Allergies Allergy Verified 06/16/23 10:06 Review of Systems Review of Systems: Yes all other systems are reviewed and are negative Constitutional: Constitutional: Reports as per [facility] Past Medical History Medical History Anxiety Morbid obesity Encounter for IUD removal and reinsertion History of anxiety H/O bipolar disorder Surgical History Hx of section Hx of cholecystectomy Family History Family History Father Mental health disorder Maternal Grandmother Mental health disorder Social History Social History Housing: House Patient Tobacco Use Status: Current someday Tobacco user Smoked in Last 30 Days: Yes e-Cigarette/Vaping Use: Currently Using Use of substances other than those prescribed or required for medical reasons: Yes Substance Use Type: Marijuana Advance Directives: No Advance Directives Information Provided: Yes Patient : No service: No Current occupational status: unemployed Sexual orientation: Straight/Heterosexual Gender identity: Female Cognitive needs: No Hearing needs: No Vision needs: Yes Physical Exam ED Vital Signs: Vital Signs - 24 hr 06/17/23 07:09 06/17/23 07:37 06/17/23 09:21 Temperature 98.9 F 99.6 F 98.3 F Pulse Rate 112 H 106 H 108 H Respiratory Rate 17 18 26 H Blood Pressure 172/95 H 131/88 142/77 H Pulse Oximetry 96 94 90 L Oxygen Delivery Method Room Air Room Air Oxygen Flow Rate 06/17/23 09:45 06/17/23 10:11 06/17/23 10:12 Temperature 98.4 F Pulse Rate 115 H 113 H Respiratory Rate 26 H 26 H Blood Pressure 142/82 H Pulse Oximetry 100 89 L 94 Oxygen Delivery Method Room Air Room Air Nasal Cannula Oxygen Flow Rate 1 06/17/23 10:54 06/17/23 11:35 06/17/23 11:44 Temperature Pulse Rate 109 H 101 H Respiratory Rate 24 H 22 H 15 Blood Pressure Pulse Oximetry 94 91 L 97 Oxygen Delivery Method Nasal Cannula Nasal Cannula Nasal Cannula Oxygen Flow Rate 1 1 2 06/17/23 12:00 06/17/23 12:25 Temperature 98.2 F Pulse Rate 104 H Respiratory Rate 23 H Blood Pressure 139/83 Pulse Oximetry 94 89 L Oxygen Delivery Method Nasal Cannula Room Air Oxygen Flow Rate 2 BMI result Body Mass Index 52.9 Const General: cooperative, comfortable and no acute distress Orientation/consciousness: patient oriented x3 Limitations: no limitations HENMT Head: Yes normal to inspection, Yes normocephalic and Yes atraumatic Ears: hearing grossly normal bilaterally and TM's normal bilaterally General nose exam: Normal external nose present Face and sinus: Yes normal facial exam Mouth: Normal oral and palatal mucosa present, oropharynx normal, moist mucous membranes and moist mucous membranes abnormal Teeth and gingiva: gingiva normal Throat: Yes posterior oropharynx normal and Yes uvula midline Eyes General: appearance normal, both eyes and all related structures Eyelids: Yes eyelids normal Conjunctivae: conjunctivae normal Sclerae: sclerae normal Pupils: Equal, round and reactive pupils present EOM: EOMs intact bilaterally Neck Neck: Yes normal visual inspection, Yes full ROM and Yes no lymphadenopathy Lymphatic: no lymphadenopathy noted Chest Chest palpation & inspection: normal inspection of the chest and normal palpation of entire chest wall Resp Other: Frequent dry cough, Diminished in bilateral lung bases, coarse lung sounds heard at left upper base with expiratory wheeze in the right upper lung field Effort & Inspection: normal respiratory effort and able to speak in complete sentences Auscultation: rales Cardio Rate: regular rate Rhythm: regular rhythm Heart sounds: S1 normal heart sound present and S2 normal heart sound present GI Other: Abdomen is soft, nontender, nondistended. Inspection: Yes normal to inspection Skin General skin exam: no rashes or lesions noted Trauma: no lacerations or abrasions Wounds: no wounds Neuro General: patient oriented x3 and moves all extremities Cranial nerves: Yes Equal, round and reactive pupils present Extrem General: Yes normal to inspection Right upper extremity: normal to inspection Left upper extremity: normal to inspection Right lower extremity: normal to inspection Left lower extremity: normal to inspection Course Reevaluation(s) Reevaluation #1: Patient's symptoms improved after receiving updraft, will continue to monitor. Time: 09:15 Reevaluation #2: Patient's oxygen saturation dipped to 88%, respirations 26, tachycardic 113. Chest x-ray showing evidence of pneumonitis or bronchopneumonia. D-dimer negative. Given hypoxia, with known infection, will obtain lactic, blood cultures, treat with ceftriaxone and azithromycin. IV fluids was adjusted to ideal body weight. Discussed workup with my attending physician, Dr. Torres. Will speak to the hospitalist for admission given hypoxia. Time: 10:53 Reevaluation #3: Patient accepted hypoxia, RSV, bronchopneumonia, transfer of care initiated. Medications Administered Generic Name Dose Route Start Last Admin Trade Name Freq PRN Reason Stop Dose Admin Albuterol/Ipratropium 3 ml 06/17/23 16:00 06/17/23 15:35 Albuterol/Iprat 2.5/0.5mg 3 Ml Ampul.Neb INHALE 3 ml RQ4H WHILE AWAKE LELA Administration Enoxaparin Sodium 40 mg 06/17/23 12:30 06/17/23 12:56 Enoxaparin Sodium 40 Mg/0.4 Ml Syringe SUBCUT 40 mg Q24H LELA Administration Lisinopril 20 mg 06/17/23 15:00 06/17/23 14:55 Lisinopril 20 Mg Tablet PO 20 mg DAILY LELA Administration Protocol Methylprednisolone Sodium Succinate 40 mg 06/17/23 12:30 06/17/23 12:57 Methylprednisolone Sod Succ 40 Mg/Ml Vial IVPUSH 40 mg Q12H LELA Administration Discontinued Medications Generic Name Dose Route Start Last Admin Trade Name Freq PRN Reason Stop Dose Admin Albuterol Sulfate 2.5 mg 06/17/23 09:38 06/17/23 09:41 Albuterol Sulfate (0.083%) 2.5 Mg/3 Ml Vial.Neb INHALE 06/17/23 09:39 2.5 mg ONCE ONE Administration Benzonatate 200 mg 06/17/23 07:57 06/17/23 09:18 Benzonatate 100 Mg Capsule PO 06/17/23 07:58 200 mg ONCE ONE Administration Dexamethasone Sodium Phosphate 10 mg 06/17/23 08:14 06/17/23 08:29 Dexamethasone Sod Phosphate 10 Mg/Ml Vial IVPUSH 06/17/23 08:15 10 mg ONCE ONE Administration Sodium Chloride 1,000 mls @ 999 mls/hr 06/17/23 07:57 06/17/23 09:45 Ns IV 06/17/23 08:57 Infused .Q1H1M ONE Infusion Sodium Chloride 1,917 mls @ 1,917 mls/hr 06/17/23 10:48 06/17/23 13:37 Ns IV 06/17/23 11:47 Infused .Q1H STA Infusion Ceftriaxone Sodium 1 gm/ 50 mls @ 100 mls/hr 06/17/23 10:48 06/17/23 12:10 Sodium Chloride IV 06/17/23 11:17 Infused ONCE ONE Infusion Azithromycin 500 mg/ Sodium 250 mls @ 125 mls/hr 06/17/23 10:48 06/17/23 14:28 Chloride IV 06/17/23 12:47 Infused ONCE ONE Infusion Lactated Ringer's 1,000 mls @ 100 mls/hr 06/17/23 12:45 06/17/23 13:36 Lr IVCONT Not Given .Q10H LELA Lorazepam 1 mg 06/17/23 12:25 06/17/23 12:56 Lorazepam 2 Mg/Ml Vial IVPUSH 06/17/23 12:26 1 mg ONCE ONE Administration Ondansetron HCl 4 mg 06/17/23 07:57 06/17/23 08:29 Ondansetron Hcl 4 Mg/2 Ml Vial IVPUSH 06/17/23 07:58 4 mg ONCE ONE Administration Medical Decision Making Medical Decision Making MDM Narrative: This is a 37-year-old female, with a history of anxiety, bipolar disorder, presenting to the emergency department complaints of cough, fevers, fatigue, body aches, nausea, vomiting diarrhea. Patient was seen at a walk-in clinic yesterday and tested positive for RSV. On arrival, frequent dry cough heard during examination, blood pressure 131 over 88, pulse 106, O2 94% on room air, temperature 99.6?. Patient is nontoxic appearing. Diminished in bilateral lung bases, coarse lung sounds heard at left upper base with expiratory wheeze in the right upper lung field. Plan: Labs, EKG, chest x-ray, viral swabs, IV fluids, Zofran 4 mg IV, Solu-Medrol Differential Diagnosis Differential Diagnoses: The differential diagnosis associated with the presentation includes Respiratory infection, bronchitis, RSV, pneumonia, ACS-unlikely Admission/Observation Consideration of admission/observation: Escalation of care including admission/observation considered Patient would have been admitted to the hospital had her work up had any findings where hospital admission was appropriate and her clinical presentation warranted hospital admission. Consult Healthcare Provider Management of the patient was discussed with: Hospitalist Lab Data MDM Lab Attestation statement: I reviewed the patient's lab results. Mild leukocytosis 11.9, with left shift noted, mildly elevated liver transaminases with an ALT of 33, alk-phos 120. 06/17/23 07:21 06/17/23 07:21 Labs: Lab Results 06/17/23 06/17/23 06/17/23 Range/Units 07:21 09:48 11:18 WBC 11.9 H (4.8-10.8) X10*3/uL RBC 5.22 (4.20-5.50) X10*6/uL Hgb 15.6 (12.0-16.0) g/dl Hct 46.9 (37.0-47.0) % MCV 89.8 (80.0-98.0) fL MCH 29.9 (27.0-33.0) pg MCHC 33.3 (31.0-35.0) g/dl RDW 13.0 (11.0-16.0) % Plt Count 302 (160-400) X10*3/uL MPV 9.1 L (9.4-12.3) fL Immature Gran % (Auto) 1.4 H (0.0-0.4) % Neut % (Auto) 75.9 H (45-73) % Lymph % (Auto) 12.7 L (20-40) % Preston % (Auto) 9.4 (2-11) % Eos % (Auto) 0.1 (0-4) % Baso % (Auto) 0.5 (0-2) % Lymph # (Auto) 1.5 (1.2-4.9) X10*3/uL Preston # (Auto) 1.1 (0.1-1.2) X10*3/uL Eos # (Auto) 0.0 (0.0-0.4) X10*3/uL Baso # (Auto) 0.1 (0.0-0.2) X10*3/uL Abs Immat Gran (auto) 0.17 H (0.00-0.03) X10*3/uL Absolute Neuts (auto) 9.1 H (2.0-8.3) x10*3/uL Absolute Nucleated RBC 0.000 (0.0-0.012) X10*3/uL Nucleated RBC % (auto) 0.0 (0.0-0.2) /100WBC D-Dimer High Sensitivty 162 NG/ML Sodium 139 (135-145) mmol/L Potassium 3.4 D (3.3-5.1) mmol/L Chloride 104 (96-108) mmol/L Carbon Dioxide 23 (22-29) mmol/L Anion Gap 15 (12-20) BUN 7 L (9-16) mg/dL Creatinine 0.77 (0.5-1.4) mg/dL Estim Creat Clear Calc 157.2 Estimated GFR > 60 Random Glucose 117 H (60-115) mg/dL Lactic Acid 0.8 (0.5-2.0) mmol/L Calcium 9.9 (8.4-10.2) mg/dL Total Bilirubin 0.3 (0.0-1.0) mg/dL Direct Bilirubin 0.2 (0.0-0.5) mg/dL AST 23 (5-31) U/L ALT 33 H (0-31) U/L Alkaline Phosphatase 120 H (39-117) U/L Troponin I High Sens < 2.7 (<3.5-17.0) ng/L Total Protein 8.4 H (6.5-8.0) g/dL Albumin 4.5 (3.5-5.0) g/dL Lipase 10 (8-78) U/L Procalcitonin 0.05 ng/mL Beta HCG, Quant < 2 mIU/mL Influenza Type A (PCR) NEGATIVE (Negative) Influenza Type B (PCR) NEGATIVE (Negative) RSV RNA Qual (PCR) POSITIVE A (Negative) SARS-CoV-2 RNA (RT-PCR) NEGATIVE (Negative) Independent Interpretation I performed an independent interpretation of an: EKG Interpretation: EKG sinus tachycardia ventricular rate of 104 beats per minute, PA interval 162, QTC of 452, no ST elevation or depression Radiology Impression Discussion of test interpretation with radiology: I have reviewed the radiologist's reading. Radiologist Impression: EXAMINATION: XR CHEST 2 VIEW CLINICAL INFORMATION: Cough, chest pain, shortness of breath COMPARISON: None TECHNIQUE: PA and lateral views of the chest obtained. FINDINGS: There are subtle patchy airspace opacities in both mid lung zones. There are no pleural effusions. The cardiomediastinal silhouette is unremarkable.. There are no pleural effusions. The cardiomediastinal silhouette is normal. XR/XR chest 2V IMPRESSION: Patchy bilateral perihilar opacities most suggestive of a viral pneumonitis or bronchopneumonia. Follow-up is suggested to confirm clearing. Dictated By: Fish Guerrero MD Independent Historian Clinical information obtained from an independent historian. History obtained from or confirmed by: Spouse Spouse, Nick External Record Review External record reviewed: Office record Outpatient record from urgent care with yesterday. Critical Care Time Critical Care Time Critical Care Time: Yes Total Critical Care Time: 45 Attestation: I have personally provided critical care time exclusive of time spent on separately billable procedures. Time includes review of lab data, radiology results, discussion with consultants, and monitoring for potential decompensation. Intervention performed as documented. Discharge Plan Discharge Clinical Impression: Hypoxia, RSV bronchiolitis, Bronchopneumonia Patient Disposition: Admitted As Inpatient
[2023-06-17 08:23] LABS: Influenza A PCR NEGATIVE (Negative); Influenza B PCR NEGATIVE (Negative); Resp Syncy Virus RNA Qual PCR POSITIVE (Negative); SARS COV2 PCR INHOUSE NEGATIVE (Negative)
[2023-06-17] MEDS: 0.9 % Sodium Chloride 1,000 ML 999 ML IV (08:24)
[2023-06-17 08:25] LABS: Troponin-I High Sensitivity < 2.7 ng/L (<3.5-17.0)
[2023-06-17] MEDS: dexAMETHasone sod phosphate 10 MG/ML VIAL IVPUSH (08:29)
[2023-06-17] MEDS: ondansetron HCL 4 MG/2 ML VIAL IVPUSH (08:29)
--- NOTE | 2023-06-17 08:39 | PC.NURSE ---
Pt is a&ox4 coming in with n/v/d since friday, unable to keep anything down PO. Pt was at pcp and was prescribed PO prednisone and an inhailer. Pt reports chest pain up inspiration. +cough. Pt is sinus tach on the monitor at 109. skin PWD. Afebrile.
--- NOTE | 2023-06-17 09:07 | PC.NURSE ---
Report given to vargas HAMILTON.
[2023-06-17] MEDS: Benzonatate 100 MG CAPSULE 200 MG PO (09:18)
[2023-06-17 09:23] LABS: HCG Quantitative < 2 mIU/mL
[2023-06-17] MEDS: Albuterol Sulfate (0.083%) 2.5 MG/3 ML VIAL.NEB INHALE (09:41)
--- NOTE | 2023-06-17 09:47 | PC.NURSE ---
Addendum entered by Karla Leo 06/17/23 09:47: note was originally for 09 Original Note: erendira ferraro notified pt is endorsing chest tigthness garcia when she breathes. 90-91% on sat sitting upright. hr still around 110. afebrile. talking full sentences w mild sob. tight cough.
--- NOTE | 2023-06-17 10:05 | PC.NURSE ---
erendira ferraro notified pt only voided small amt and able to send urine culture not urinalysis/preg as insufficient sample
[2023-06-17 10:35] LABS: D Dimer High Sensitivity 162 NG/ML
--- NOTE | 2023-06-17 10:54 | PC.NURSE ---
tech to draw blood cultures prior to abx.
[2023-06-17] MEDS: 0.9 % Sodium Chloride 1,917 ML 1917 ML IV (11:08)
--- NOTE | 2023-06-17 11:17 | PC.NURSE ---
rn flora 1st set bc/lactic. sending. tech to draw next set bc
[2023-06-17 11:37] LABS: Lactic Acid 0.8 mmol/L (0.5-2.0)
[2023-06-17] MEDS: cefTRIAXone sodium 1 GM in 0.9 % Sodium Chloride 50 ML IV (11:38)
[2023-06-17] MEDS: Azithromycin 500 MG in 0.9 % Sodium Chloride 250 ML 125 MG IV (12:17)
[2023-06-17 12:23] LABS: Procalcitonin 0.05 ng/mL
--- NOTE | 2023-06-17 12:26 | PC.NURSE ---
provider ready came to bedside and state to put on RA to try. notified pa ready 89-90% hr 106 . no distress.
--- NOTE | 2023-06-17 12:32 | PM.IMHP ---
History of Present Illness Date of Service: 06/17/23 Attending physician on admission: Tayo Rush Chief Complaint: cough, sob, n/v/d, po intolerance, fevers 37-year-old female with history of bipolar disorder, anxiety, hypertension, and morbid obesity with BMI greater than 52 presented to the ED earlier today for evaluation of upper respiratory symptoms, fevers, as well as nausea, vomiting, diarrhea ongoing for 5 days. She states she has a chronic intermittent throat tickle? and dry cough related to lisinopril use which he is not overly bothered by. However, about 5 days ago, cough worsened though remained dry associated with intermittent shortness of breath and pleuritic chest pain. She has also had fevers up to 102 at home. Several days ago also reported onset of nausea, vomiting, and over 10 episodes of diarrhea on a daily basis. She has been unable to tolerate food or liquids. Denies any shaking chills, congestion, sore throat, abdominal pain, melena, hematochezia, hematemesis, lightheadedness, headaches, or retrosternal chest pressure. She does work at [employer] where there have been multiple cases of RSV. She did present to our urgent care yesterday and was prescribed albuterol and prednisone though symptoms continue to worsen so she presented to the ED. On arrival, patient tachycardic to 112 and hypertensive to 172/95. At that time, no hypoxia or fevers. However, patient received an updraft and became hypoxic to 88-89% and was placed on 2 L supplemental O2 now maintaining oximetry around 93-94%. She remains tachycardic to 113 and tachypneic to 26th but does report she is very anxious. There is a mild leukocytosis of 11.9 with slight left shift with 1.4% immature granulocytes and 75.9% neutrophils. No bandemia. D-dimer within normal limits. Renal function normal, electrolyte levels normal. Lactic acid 0.8. Troponin below detectable limits. Procalcitonin 0.05. Urinalysis pending. Negative for COVID-19, influenza, but positive for RSV. Chest x-ray is suggestive of a viral pneumonitis versus bronchopneumonia. Review of Systems Review of Systems: General: No fevers, malaise, unintentional weight loss HEENT: No blurred vision, diplopia. No sore throat, nasal congestion, rhinorrhea, sinus pain, ear pain Cardiovascular: No chest pressure, palpitations, or leg edema Respiratory: +cough, +sob. No wheezing GI: +n/v/d, +po intolerance. No abdominal pain, constipation, melena, hematochezia : No dysuria, hematuria, increased urinary frequency, decreased urinary output MSK: No myalgia, back pain. +pleuritic chest pain Neuro: No headaches, weakness, paresthesias Skin: No rashes or lesions [facility] Medical History Anxiety Morbid obesity Encounter for IUD removal and reinsertion History of anxiety H/O bipolar disorder Family History Father Mental health disorder Maternal Grandmother Mental health disorder Surgical History Hx of section Hx of cholecystectomy Social History Housing: House Patient Tobacco Use Status: Current someday Tobacco user Smoked in Last 30 Days: Yes e-Cigarette/Vaping Use: Currently Using Use of substances other than those prescribed or required for medical reasons: Yes Substance Use Type: Marijuana Advance Directives: No Advance Directives Information Provided: Yes Patient : No service: No Current occupational status: unemployed Sexual orientation: Straight/Heterosexual Gender identity: Female Cognitive needs: No Hearing needs: No Vision needs: Yes Meds Allergies Allergy/AdvReac Type Severity Reaction Status Date / Time No Known Allergies Allergy Verified 06/16/23 10:06 Active Medications: Current Medications Azithromycin 500 mg/ Sodium (Chloride) 250 mls @ 125 mls/hr IV ONCE ONE Stop: 06/17/23 12:47 Last Admin: 06/17/23 12:17 Dose: 125 mls/hr Home Medications Medication Instructions Recorded Confirmed Last Taken Type levonorgestrel 21 mcg/24 hours (8 intrauterine 10/24/22 05/23/23 Unknown History yrs) 52 mg intrauterine device (Mirena) Physical Exam Vital Signs and Narrative: Vital Signs: Last Vital Signs Temp 98.2 F 06/17/23 12:00 Pulse 104 H 06/17/23 12:00 Resp 23 H 06/17/23 12:00 BP 139/83 06/17/23 12:00 Pulse Ox 89 L 06/17/23 12:25 O2 Del Method Room Air 06/17/23 12:25 O2 Flow Rate 2 06/17/23 12:00 BMI result Body Mass Index 52.9 Constitutional - Awake and Alert, morbidly obese, anxious appearing Eyes - PERRLA, EOMI Cardiovascular - S1S2, RRR, No edema Respiratory - Normal lung expansion, Normal respiratory effort, No respiratory distress, rhonchi BLL, expiratory wheezing Gastrointestinal - NT / ND; +BS; No rebound or guarding Extremities - no calf tenderness bilaterally, no swelling Skin - Warm/clammy Neurological - Alert & oriented x3, Psychological - Appropriate affect Results Labs 06/17/23 07:21 06/17/23 07:21 Labs: Laboratory Results - last 24 hr 06/17/23 06/17/23 06/17/23 07:21 09:48 11:18 MCV 89.8 MCH 29.9 MCHC 33.3 RDW 13.0 Plt Count 302 MPV 9.1 L Immature Gran % (Auto) 1.4 H Neut % (Auto) 75.9 H Lymph % (Auto) 12.7 L [place] % (Auto) 9.4 Eos % (Auto) 0.1 Baso % (Auto) 0.5 Lymph # (Auto) 1.5 [place] # (Auto) 1.1 Eos # (Auto) 0.0 Baso # (Auto) 0.1 Abs Immat Gran (auto) 0.17 H Absolute Neuts (auto) 9.1 H Absolute Nucleated RBC 0.000 Nucleated RBC % (auto) 0.0 D-Dimer High Sensitivty 162 Anion Gap 15 Estim Creat Clear Calc 157.2 Estimated GFR > 60 Random Glucose 117 H Lactic Acid 0.8 Calcium 9.9 Total Bilirubin 0.3 Direct Bilirubin 0.2 AST 23 ALT 33 H Alkaline Phosphatase 120 H Total Protein 8.4 H Albumin 4.5 Lipase 10 Procalcitonin 0.05 Beta HCG, Quant < 2 Influenza Type A (PCR) NEGATIVE Influenza Type B (PCR) NEGATIVE RSV RNA Qual (PCR) POSITIVE A SARS-CoV-2 RNA (RT-PCR) NEGATIVE Imaging Radiologist's Impressions: Impressions Chest X-Ray 06/17/23 08:12 IMPRESSION: Patchy bilateral perihilar opacities most suggestive of a viral pneumonitis or bronchopneumonia. Follow-up is suggested to confirm clearing. Assessment and Plan (1) Bronchopneumonia due to respiratory syncytial virus (RSV): Status: Acute (2) Acute hypoxemic respiratory failure: Status: Acute (3) Obesity hypoventilation syndrome: Status: Acute (4) Diarrhea: Status: Acute (5) Nausea & vomiting: Status: Acute (6) Anxiety: Status: Acute Plan 37-year-old female with history of bipolar disorder, anxiety, hypertension, and morbid obesity with BMI greater than 52 admitted for acute hypoxemic respiratory failure due to RSV/bronchopneumonia/obesity hypoventilation syndrome as well as intractable nausea and vomiting with p.o. intolerance. # acute hypoxemic respiratory failure 2/2 RSV/bronchopneumonia likely complicated by obesity hypoventilation syndrome -+RSV, CXR shows viral pneumonitis vs bronchopneumonia -IV ceftriaxone 1g and IV azithromycin 500mg (initiated 06/17) -IV mehtylprednisolone 40mg BID -Duonebs q4h while awake -albuterol prn -symptomatic management -Incentive spirometry -supplemental O2 to maintain oximetry >92%, wean as tolearted -droplet/contact precautions #Acute n/v/d with PO intolerance -suspect viral etiology -check GI panel and CDiff PCR -antiemetics, antidiarrheals p.r.n. -keep NPO for now except small sips of clears/ice chips, advanced as tolerated -renal function/lytes normal. Received 2.9L IV NS in ED, hold on additional IVF for now #Bipolar disorder with anxiety -given 1mg IV lorazepam in ED -continue home meds #Hypertension -bp reasonably controlled -continue lisinopril (has chronic cough r/t to ACEI, but does not wish to change) #Morbid obesity with BMI >52 -weight loss efforts encouraged #Cigarette smoker -started smoking 8 months ago, 5-6/day -desires to quit, declines NRT -cessation encouraged DVT prophylaxis- lovenox Full code Due to patient's persistent hypoxia despite treatments in ED related to RSV and bronchopneumonia, patient will require admission of at least 2 midnights for IV abx and supplemental O2. She also has intractable nausea vomiting with severe diarrhea unable to tolerate PO and will require IVF resuscitation to prevent acute kidney injury and electrolyte disturbance, currently NPO and will require advancement of diet and close monitoring of renal function and electrolyte levels. Quality Stroke Does the patient have a stroke diagnosis?: No VTE Prior VTE?: No VTE Risk Level:: Medical - moderate - high VTE Device Contraindication: Treatment Not Indicated VTE Drug Contraindication: N/A - Med Ordered
[2023-06-17] MEDS: LORazepam 2 MG/ML VIAL 1 MG IVPUSH (12:56)
[2023-06-17] MEDS: Enoxaparin Sodium 40 MG/0.4 ML SYRINGE SUBCUT (12:56)
[2023-06-17] MEDS: methylPREDNISolone Sod Succ 40 MG/ML VIAL IVPUSH ×2 (12:57→23:36)
[2023-06-17 13:20] LABS: Appearance Urine Clear; Color Urine Yellow; Glucose Urine UA Negative (Negative); Leukocyte Esterase Urine Negative (Negative); Nitrite Urine Negative (Negative); Specific Gravity - Urine <= 1.005 (1.005-1.025); Urine Blood Negative (Negative); Urine Ketones 15 mg/dL (Negative); Urine Protein Negative (Neg-Trace)
[2023-06-17 13:22] LABS: UPreg QC Valid YES; Urine Pregnancy NEGATIVE (NEGATIVE)
--- NOTE | 2023-06-17 13:58 | PHA.MEDREC ---
Pharmacy Consult ? Medication Reconciliation Pharmacy has completed the medication reconciliation. Spoke to patient and confirmed medication list.
[2023-06-17] MEDS: lisinopriL 20 MG TABLET PO (14:55)
[2023-06-17] MEDS: Albuterol/Iprat 2.5/0.5MG 3 ML AMPUL.NEB INHALE ×2 (15:35→19:28)
[2023-06-17] MEDS: 0.9 % Sodium Chloride Flush 3 ML SYRINGE IVFLUSH ×2 (17:00→23:36)
--- NOTE | 2023-06-17 17:22 | PC.NURSE ---
Pt arrive to unit at ~1700 from ED. Ambulated with steady gait to bed. Oriented to room and call henry system. A/Ox4. On 2L via NC. at bedside.
[2023-06-17] MEDS: Imipramine HCl 50 MG TABLET 100 MG PO (20:14)
[2023-06-18 03:15] VITALS: BP 159/90; PULSE 96; RESP 16; TEMP 36.1; O2SAT 95
[2023-06-18 06:23] LABS: MANUAL DIFF FLAG NO
[2023-06-18 06:46] LABS: Basophils Percent Auto 0.3 % (0-2); Hematocrit 42.3 % (37.0-47.0); Imm Gran Abs Auto 0.17 X10*3/uL (0.00-0.03); Imm Gran Pct Auto 1.5 % (0.0-0.4); Lymphocytes Absolute Auto 2.1 X10*3/uL (1.2-4.9); Lymphocytes Percent Auto 18.8 % (20-40); Mean Corpuscular HGB Conc 33.1 g/dl (31.0-35.0); Mean Corpuscular Hemoglobin 30.4 pg (27.0-33.0); Mean Platelet Volume 9.6 fL (9.4-12.3); Monocytes Absolute Auto 0.9 X10*3/uL (0.1-1.2); Monocytes Percent Auto 8.2 % (2-11); Neutrophils Absolute Auto 8.1 x10*3/uL (2.0-8.3); Neutrophils Percent Auto 71.2 % (45-73); Platelet Count 310 X10*3/uL (160-400); Red Cell Distribution Width 13.2 % (11.0-16.0); White Blood Count 11.3 X10*3/uL (4.8-10.8)
[2023-06-18 06:56] LABS: Anion Gap 12 (12-20); Blood Urea Nitrogen 6 mg/dL (9-16); Calcium 9.6 mg/dL (8.4-10.2); Carbon Dioxide 24 mmol/L (22-29); Chloride 108 mmol/L (96-108); Estimated Glomerular Filt Rate > 60; Glucose Random 134 mg/dL (60-115); Sodium 140 mmol/L (135-145)
[2023-06-18 07:52] VITALS: BP 162/92; PULSE 102; RESP 18; TEMP 36.2; O2SAT 96
[2023-06-18] MEDS: lisinopriL 20 MG TABLET PO (08:09)
[2023-06-18] MEDS: Imipramine HCl 50 MG TABLET 100 MG PO (08:09)
[2023-06-18] MEDS: 0.9 % Sodium Chloride Flush 3 ML SYRINGE IVFLUSH (08:09)
[2023-06-18] MEDS: Tolterodine Tartrate LA 4 MG CAP.ER.24H PO (08:09)
[2023-06-18] MEDS: Albuterol/Iprat 2.5/0.5MG 3 ML AMPUL.NEB INHALE ×2 (08:26→11:52)
[2023-06-18 08:28] VITALS: PULSE 94; RESP 18; O2SAT 99
--- NOTE | 2023-06-18 09:51 | MHC.CM.PN ---
Addendum entered by Erlinda Bai RN 06/18/23 10:58: PER MD ROUNDS PATIENT IS MEDICALLY CLEARED FOR DC. IS AT BEDSIDE TO TRANSPORT HOME. Original Note: Patient from home with and children. Independent, no services or equipment. PCP: Kike Slaughter MD HCP: CM completed with patient. Patient named Nick as HCP. [phone] DCP: Goal is home self care, to transport. CM will continue to follow.
[2023-06-18 10:29] LABS: CDiff Gene PCR NEGATIVE (Negative)
[2023-06-18 11:52] VITALS: PULSE 98; RESP 18; O2SAT 92
--- NOTE | 2023-06-18 11:52 | PM.DS ---
DS: Providers Provider Date of Service: 06/18/23 Date of admission: 06/17/23 12:33 Primary care physician: Kike Slaughter MD DS: Diagnosis Discharge Diagnosis (1) Bronchopneumonia due to respiratory syncytial virus (RSV): Status: Acute (2) Acute hypoxemic respiratory failure: Status: Acute (3) Obesity hypoventilation syndrome: Status: Acute (4) Diarrhea: Status: Acute (5) Nausea & vomiting: Status: Acute (6) Anxiety: Status: Acute (7) Bronchopneumonia: Status: Acute DS: Summary Hospital Course Hospital Course: Admission note HPI 37-year-old female with history of bipolar disorder, anxiety, hypertension, and morbid obesity with BMI greater than 52 presented to the ED earlier today for evaluation of upper respiratory symptoms, fevers, as well as nausea, vomiting, diarrhea ongoing for 5 days. She states she has a chronic intermittent throat tickle? and dry cough related to lisinopril use which he is not overly bothered by. However, about 5 days ago, cough worsened though remained dry associated with intermittent shortness of breath and pleuritic chest pain. She has also had fevers up to 102 at home. Several days ago also reported onset of nausea, vomiting, and over 10 episodes of diarrhea on a daily basis. She has been unable to tolerate food or liquids. Denies any shaking chills, congestion, sore throat, abdominal pain, melena, hematochezia, hematemesis, lightheadedness, headaches, or retrosternal chest pressure. She does work at [employer] where there have been multiple cases of RSV. She did present to our urgent care yesterday and was prescribed albuterol and prednisone though symptoms continue to worsen so she presented to the ED. On arrival, patient tachycardic to 112 and hypertensive to 172/95. At that time, no hypoxia or fevers. However, patient received an updraft and became hypoxic to 88-89% and was placed on 2 L supplemental O2 now maintaining oximetry around 93-94%. She remains tachycardic to 113 and tachypneic to 26th but does report she is very anxious. There is a mild leukocytosis of 11.9 with slight left shift with 1.4% immature granulocytes and 75.9% neutrophils. No bandemia. D-dimer within normal limits. Renal function normal, electrolyte levels normal. Lactic acid 0.8. Troponin below detectable limits. Procalcitonin 0.05. Urinalysis pending. Negative for COVID-19, influenza, but positive for RSV. Chest x-ray is suggestive of a viral pneumonitis versus bronchopneumonia. Hospital course # acute hypoxemic respiratory failure 2/2 RSV/bronchopneumonia likely complicated by obesity hypoventilation syndrome as she tested +ve for RSV, and her CXR shows viral pneumonitis vs bronchopneumonia started on IV ceftriaxone 1g and IV azithromycin 500mg with IV mehtylprednisolone 40mg BID and Duonebs q4h while awake along with albuterol prn. She improved significantly overnight and weaned off O2. she was able to ambulate with no reported SOB or dyspnea. #Acute n/v/d with PO intolerance likely from viral illness. treated with antiemetics, antidiarrheals p.r.n. Started on clears with good tolerance, advanced to regular with good tolerance as her N\V\D resolved completely. The patient had quicker than expected improvement in her symptoms and will not need to spend a 2nd night in the hospital. Continue antibiotics as prescribed Prednisone for 5 more days increase activity as tolerated Time Attestation Discharge coordination time: Greater than 30 minutes Quality: Safe Use of Opioids Does Pt have an Active Cancer Diagnosis on the Problem List?: No Quality: Stroke Does the patient have a stroke diagnosis?: No Physical Exam Vital Signs: Vital Signs: Last Vital Signs Temp 97.2 F 06/18/23 07:52 Pulse 94 06/18/23 08:28 Resp 18 06/18/23 08:28 BP 162/92 H 06/18/23 07:52 Pulse Ox 96 06/18/23 07:52 O2 Del Method Room Air 06/18/23 07:52 O2 Flow Rate 2 06/18/23 03:15 BMI result Body Mass Index 52.9 Const: Other: Constitutional : Awake, interactive, obese, not in distress Neck : Normal inspection, Supple Cardiovascular : RRR, no JVP, no lower extremity edema Respiratory : good bilateral air entry, no crackles, wheezes or rhonchi Gastrointestinal: soft, lax, Normal bowel sounds, Non tender Skin : Warm, Dry Neurological : Alert & oriented x3, No focal deficit DS: Data Data Completed and Pending Labs on day of discharge: Laboratory Results - last 24 hr 12/12/23 12/12/23 12/13/23 07:21 13:10 06:06 WBC 11.3 H RBC 4.60 Hgb 14.0 Hct 42.3 MCV 92.0 MCH 30.4 MCHC 33.1 RDW 13.2 Plt Count 310 MPV 9.6 Immature Gran % (Auto) 1.5 H Neut % (Auto) 71.2 Lymph % (Auto) 18.8 L [place] % (Auto) 8.2 Eos % (Auto) 0.0 Baso % (Auto) 0.3 Lymph # (Auto) 2.1 [place] # (Auto) 0.9 Eos # (Auto) 0.0 Baso # (Auto) 0.0 Abs Immat Gran (auto) 0.17 H Absolute Neuts (auto) 8.1 Absolute Nucleated RBC 0.000 Nucleated RBC % (auto) 0.0 Sodium 140 Potassium 4.0 Chloride 108 Carbon Dioxide 24 Anion Gap 12 BUN 6 L Creatinine 0.64 Estim Creat Clear Calc 189.0 Estimated GFR > 60 Random Glucose 134 H Calcium 9.6 Magnesium 2.0 Procalcitonin 0.05 Urine Color Yellow Urine Appearance Clear Urine pH 6.0 Ur Specific [place] <= 1.005 Urine Protein Negative Urine Glucose (UA) Negative Urine Ketones 15 Urine Blood Negative Urine Nitrite Negative Ur Leukocyte Esterase Negative Urine Test NEGATIVE C. difficile Tox B Gene 06/18/23 07:45 WBC RBC Hgb Hct MCV MCH MCHC RDW Plt Count MPV Immature Gran % (Auto) Neut % (Auto) Lymph % (Auto) [place] % (Auto) Eos % (Auto) Baso % (Auto) Lymph # (Auto) [place] # (Auto) Eos # (Auto) Baso # (Auto) Abs Immat Gran (auto) Absolute Neuts (auto) Absolute Nucleated RBC Nucleated RBC % (auto) Sodium Potassium Chloride Carbon Dioxide Anion Gap BUN Creatinine Estim Creat Clear Calc Estimated GFR Random Glucose Calcium Magnesium Procalcitonin Urine Color Urine Appearance Urine pH Ur Specific [place] Urine Protein Urine Glucose (UA) Urine Ketones Urine Blood Urine Nitrite Ur Leukocyte Esterase Urine Test C. difficile Tox B Gene NEGATIVE Imaging Chest x-ray: Radiologist's impression: ITS Impressions Chest X-Ray 06/17/23 08:12 IMPRESSION: Patchy bilateral perihilar opacities most suggestive of a viral pneumonitis or bronchopneumonia. Follow-up is suggested to confirm clearing. Discharge Plan Discharge Anticipated Discharge Date/Time: 06/18/23 11:24 Patient Disposition: Home, Self-Care Discharge Diagnosis: RSV virus infection Referrals: Kike Slaughter MD [Primary Care Provider] - 1 Week Discharge Medications: New prednisone 20 mg tablet 40 mg PO DAILY Qty: 10 0RF azithromycin 500 mg tablet 500 mg PO DAILY 5 Days Qty: 5 0RF cefuroxime axetil 500 mg tablet 500 mg PO BID Qty: 10 0RF Continued solifenacin [Vesicare] 5 mg tablet 5 mg PO DAILY 30 Days Qty: 30 0RF desvenlafaxine succinate 25 mg tablet extended release 24 hr 25 mg PO QAM 90 Days Qty: 90 0RF imipramine HCl 50 mg tablet 100 mg PO BID 90 Days Qty: 360 0RF lisinopril 20 mg tablet 20 mg PO QAM 90 Days Qty: 90 0RF lorazepam 0.5 mg tablet 0.5 mg PO DAILY PRN (Reason: anxiety) 90 Days Qty: 30 0RF Mirena 21 mcg/24 hours (8 yrs) 52 mg intrauterine device intrauterine Discharge Orders: Discharge Order (Routine); Ordered 06/18/23 Ordered By: Narciso Ratliff Diet: Low salt diet Activity on Discharge: As tolerated Stand Alone Forms: Patient Portal Discharge page, Work/School Release Care Plan Goals: Read below Health Concerns: Read below Plan of Treatment: Read below Assessment: Continue antibiotics as prescribed Prednisone for 5 more days increase activity as tolerated Discharge Date/Time: 06/18/23 14:29
[2023-06-18] MEDS: cefTRIAXone sodium 1 GM in 0.9 % Sodium Chloride 50 ML IV (12:18)
[2023-06-18] MEDS: methylPREDNISolone Sod Succ 40 MG/ML VIAL IVPUSH (12:18)
[2023-06-18] MEDS: Enoxaparin Sodium 40 MG/0.4 ML SYRINGE SUBCUT (12:19)
[2023-06-18] MEDS: Azithromycin 500 MG in 0.9 % Sodium Chloride 250 ML 125 MG IV (12:19)
[2023-06-18 14:49] LABS: Adenovirus F 40/41 Not Detected (Not Detect.); Astrovirus Not Detected (Not Detect.); Campylobacter Not Detected (Not Detect.); Cryptosporidium Not Detected (Not Detect.); Cyclospora cayetanensis Not Detected (Not Detect.); E. coli EAEC Not Detected (Not Detect.); E. coli EPEC Not Detected (Not Detect.); E. coli ETEC Not Detected (Not Detect.); E. coli STEC Not Detected (Not Detect.); Entamoeba histolytica Not Detected (Not Detect.); Giardia lamblia Not Detected (Not Detect.); Norovirus GI/GII Not Detected (Not Detect.); Plesiomonas shigelloides Not Detected (Not Detect.); Rotavirus A Not Detected (Not Detect.); Salmonella Not Detected (Not Detect.); Sapovirus Not Detected (Not Detect.); Shigella sp./EIEC Not Detected (Not Detect.); Vibrio Not Detected (Not Detect.); Vibrio Cholerae Not Detected (Not Detect.); Yersinia enterocolitica Not Detected (Not Detect.)
== END 2023-06-18 14:29 | disposition home or self-care (01) | DRG 138 ==
LOC: HO.ED 09:38 → HO.EDOVER 12:39 → HO.S3 16:06
PROVIDERS: Physician Assistant Medical; Admitting Provider Physician Assistant; Emergency Provider Emergency Medicine Emergency Medical Services; PCP Internal Medicine; Visit Provider Student in an Organized Health Care Education/Training Program
DX: J12.1 Respiratory syncytial virus pneumonia (principal); J96.01 Acute respiratory failure with hypoxia; F41.9 Anxiety disorder, unspecified; E66.2 Morbid (severe) obesity with alveolar hypoventilation; Z20.822 Contact with and (suspected) exposure to COVID-19; Z68.43 Body mass index [BMI] 50.0-59.9, adult; Z87.891 Personal history of nicotine dependence; Z79.899 Other long term (current) drug therapy
CPT/HCPCS: 0241U; 36415; 71046; 80048; 80053; 81003; 81025; 82248; 83605; 83690; 83735; 84145; 84484; 84702; 85025; 85379; 87040; 87493; 87507; 93005; 99285; J0456; J0696; J1100; J1650; J2060; J2405; J2920

== ENCOUNTER → 2023-06-17 07:57 | Outpatient (BNV) | payer OTHER, SELFPAY | PROVIDERS: Admitting Provider Physician Assistant; Emergency Provider Emergency Medicine Emergency Medical Services; PCP Internal Medicine; Visit Provider Internal Medicine Cardiovascular Disease | DX: R00.0 Tachycardia, unspecified (principal) | CPT/HCPCS: 93010 ==

== ENCOUNTER → 2023-06-17 12:33 | Outpatient (BNV) | payer OTHER, SELFPAY | PROVIDERS: Admitting Provider Physician Assistant; Emergency Provider Emergency Medicine Emergency Medical Services; PCP Internal Medicine; Visit Provider Physician Assistant | DX: J12.1 Respiratory syncytial virus pneumonia (principal); J96.01 Acute respiratory failure with hypoxia; E66.2 Morbid (severe) obesity with alveolar hypoventilation; Z68.43 Body mass index [BMI] 50.0-59.9, adult; R19.7 Diarrhea, unspecified; R11.2 Nausea with vomiting, unspecified; F41.9 Anxiety disorder, unspecified; J18.0 Bronchopneumonia, unspecified organism | CPT/HCPCS: 99223; 99239 ==

== ENCOUNTER 2023-06-26 08:41 | Outpatient (AMB) | payer OTHER, SELFPAY ==
--- NOTE | 2023-06-26 10:23 | MHC.PC.OV ---
Intake Visit Reasons: F/U RSV/[facility] ~[phone] Allergies No Known Allergies Allergy (Verified 06/26/23 10:23) Medication List - Last Reconciled 06/26/23 by Kike Slaughter MD desvenlafaxine succinate ER 25 mg PO QAM 90 days imipramine HCl 100 mg (2 x 50 mg) PO BID 90 days levonorgestrel (Mirena) intrauterine lisinopril 20 mg PO QAM 90 days lorazepam 0.5 mg PO DAILY PRN 90 days prednisone 40 mg (2 x 20 mg) PO DAILY solifenacin (Vesicare) 5 mg PO DAILY 30 days Tobacco use date assessed: 06/26/23 Dental Screening Dental Screen Date: 06/26/23 Did you have a dental visit in the last 12 months?: Yes Did you have a dental problem in the last 6 months where you did not have access to dental care?: No Was dental information given to patient?: Patient has dentist HPI F/U RSV/[facility] ~[phone] HPI Details Patient is a 37-year-old female this is a hospital discharge follow-up from 06/17/2023 Patient have a history of anxiety, bipolar disorder she presented to emergency room with a complaint of cough fever fatigue and shortness of breath. A day before patient visited walk-in clinic and was diagnosed with RSV infection. In emergency room patient's pulse ox dropped she was admitted for hypoxia EKG done showed tachycardia ventricular rate of 104 beats per minute no ST T-wave depression Chest x-ray showed patchy bilateral opacities suggestive for viral pneumonitis or bronchopneumonia Patient is back to her baseline she is just slightly still feeling shortness of breath She still have leftover prednisone 20 mg tablet I have told her to start taking half a tablet for another week. We will be repeating the chest x-ray in 2-3 weeks to make sure it has cleared Patient offer no other complaints today. [facility] Medical History Obesity hypoventilation syndrome Anxiety Morbid obesity Encounter for IUD removal and reinsertion History of anxiety H/O bipolar disorder Surgical History Hx of section Hx of cholecystectomy Family History Father Mental health disorder Maternal Grandmother Mental health disorder Social History Household Members: Spouse and Family Housing: House Do you presently have visiting nurse or other home services: No Patient Tobacco Use Status: Former Tobacco user Tobacco use type: Cigarette e-Cigarette/Vaping Use: Currently Using Substance Use Type: Marijuana service: No Current occupational status: unemployed Sexual orientation: Straight/Heterosexual Gender identity: Female Cognitive needs: No Hearing needs: No Vision needs: Yes Questionnaire Thrive Questionnaire Date Thrive assessed: 06/18/23 AUDIT C Alcohol Use Questionnaire (AUDIT-C) 1. How often do you have a drink containing alcohol?: Monthly or less 2. How many drinks containing alcohol do you have on a typical day when you are drinking?: 1 or 2 3. How often do you have six or more drinks on one occasion?: Never Total Score: 1 Score Reviewed/Action Taken: Yes SALVADOR-7 AMB Questionnaire SALVADOR-7 Date SALVADOR - 7 assessed: 01/21/23 Source: Developed by Drs. Gabriel Glover, Sabina Betts, Manish Chaudhry and colleagues, with an educational piper from [employer]. Review of Systems Const Denies chills and Denies fever(s) ENT Denies epistaxis and Denies nasal discharge Card Denies chest pain Resp Denies chest congestion and Denies hemoptysis GI Denies diarrhea and Denies nausea Skin/Breast Denies rash Neuro Reports no additional complaints Psych Reports no additional complaints Endo Reports no additional complaints Physical exam (Primary Care) Tobacco/Smoking Status: Tobacco use Status Tobacco use date assessed 06/26/23 06/26/23 10:25 Patient Tobacco Use Status Former Tobacco user 06/26/23 10:25 Tobacco use type Cigarette 06/26/23 10:25 e-Cigarette/Vaping Use Currently Using 06/26/23 10:25 Thrive Assessment: Date of Thrive Assessment Date Thrive assessed 06/18/23 06/26/23 10:25 Telehealth Telehealth Location of provider rendering services: practice address Location of patient: address on file Patient Identification confirmed using: Name, : Yes Telehealth method: voice only Patient verbally consented to treatment: Yes Patient verbally consented to billing insurance company: Yes Patient informed of any privacy concerns related to visit: Yes Assessment and Plan Assessment & Plan (1) Pneumonia due to respiratory syncytial virus (RSV): Code(s): J12.1 - Respiratory syncytial virus pneumonia Plan Patient is a 37-year-old female this is a hospital discharge follow-up from 06/17/2023 Patient have a history of anxiety, bipolar disorder she presented to emergency room with a complaint of cough fever fatigue and shortness of breath. A day before patient visited walk-in clinic and was diagnosed with RSV infection. In emergency room patient's pulse ox dropped she was admitted for hypoxia EKG done showed tachycardia ventricular rate of 104 beats per minute no ST T-wave depression Chest x-ray showed patchy bilateral opacities suggestive for viral pneumonitis or bronchopneumonia Patient is back to her baseline she is just slightly still feeling shortness of breath She still have leftover prednisone 20 mg tablet I have told her to start taking half a tablet for another week. We will be repeating the chest x-ray in 2-3 weeks to make sure it has cleared Patient offer no other complaints today. Other than feeling congested in her ear, for that she will pick up attendant Claritin D [id number] and take that for 10 days. Orders: Orders XR chest 2V Today J12.1 - Respiratory syncytial virus pneumonia Coding Level of Care Code Tele Est Pt Level 3 (12848) Diagnoses Pneumonia due to respiratory syncytial virus (RSV) J12.1 Time Spent (min) 17
== END 2023-06-26 11:44 | disposition home or self-care (01) ==
PROVIDERS: PCP Internal Medicine; Visit Provider Internal Medicine
DX: J12.1 Respiratory syncytial virus pneumonia (principal)
CPT/HCPCS: 99213

== ENCOUNTER 2023-11-06 06:54 | Outpatient (REF) | payer OTHER, SELFPAY ==
[2023-11-06 10:22] LABS: MANUAL DIFF FLAG NO
[2023-11-06 10:30] LABS: Basophils Absolute Auto 0.1 X10*3/uL (0.0-0.2); Basophils Percent Auto 0.9 % (0-2); Eosinophils Absolute Auto 0.5 X10*3/uL (0.0-0.4); Eosinophils Percent Auto 4.1 % (0-4); Hematocrit 43.6 % (37.0-47.0); Hemoglobin 14.6 g/dl (12.0-16.0); Imm Gran Abs Auto 0.15 X10*3/uL (0.00-0.03); Imm Gran Pct Auto 1.4 % (0.0-0.4); Lymphocytes Absolute Auto 3.2 X10*3/uL (1.2-4.9); Lymphocytes Percent Auto 28.6 % (20-40); Mean Corpuscular HGB Conc 33.5 g/dl (31.0-35.0); Mean Corpuscular Hemoglobin 30.7 pg (27.0-33.0); Mean Corpuscular Volume 91.6 fL (80.0-98.0); Mean Platelet Volume 10.4 fL (9.4-12.3); Monocytes Absolute Auto 0.6 X10*3/uL (0.1-1.2); Monocytes Percent Auto 5.6 % (2-11); Neutrophils Absolute Auto 6.6 x10*3/uL (2.0-8.3); Neutrophils Percent Auto 59.4 % (45-73); Platelet Count 339 X10*3/uL (160-400); Red Blood Count 4.76 X10*6/uL (4.20-5.50); Red Cell Distribution Width 13.2 % (11.0-16.0)
[2023-11-06 11:45] LABS: Alanine Aminotransferase 28 U/L (0-31); Albumin Level 4.1 g/dL (3.5-5.0); Alkaline Phosphatase 105 U/L (39-117); Anion Gap 15 (12-20); Aspartate Amino Transferase 21 U/L (5-31); Bilirubin Total 0.4 mg/dL (0.0-1.0); Blood Urea Nitrogen 7 mg/dL (9-16); Calcium 9.8 mg/dL (8.4-10.2); Carbon Dioxide 23 mmol/L (22-29); Chloride 106 mmol/L (96-108); Cholesterol 132 mg/dL (<200); Estimated Glomerular Filt Rate > 60; Glucose Fasting 101 mg/dL (60-99); HDL Cholesterol 29 mg/dL (>40); LDL Cholesterol Calculated 85 mg/dL (<100); Potassium 3.9 mmol/L (3.3-5.1); Sodium 140 mmol/L (135-145); TSH reflex Free T4 2.34 uIU/mL (0.32-4.0); Total Protein 7.3 g/dL (6.5-8.0); Triglycerides 91 mg/dL (<150)
== END 2023-11-06 06:55 | disposition home or self-care (01) ==
LOC: HO.HMGCLDS 06:54
PROVIDERS: PCP Internal Medicine; Visit Provider Internal Medicine
DX: Z00.01 Encounter for general adult medical examination with abnormal findings (principal); F33.9 Major depressive disorder, recurrent, unspecified; E66.01 Morbid (severe) obesity due to excess calories; F41.0 Panic disorder [episodic paroxysmal anxiety]; N39.3 Stress incontinence (female) (male)
CPT/HCPCS: 36415; 80053; 80061; 84443; 85025

== ENCOUNTER 2023-11-21 15:19 | Outpatient (AMB) | payer OTHER, SELFPAY ==
[2023-11-21 15:27] VITALS: BP 144/86; PULSE 97; O2SAT 98; BMI 50.3
--- NOTE | 2023-11-21 15:27 | A.OFFPC_ITS ---
Vital Signs 11/21/23 15:27 Height 5 ft 8 in Weight 331 lb 1 oz BMI 50.3 BP 144/86 H Blood Pressure Location Lt brachial Position Sitting Pulse 97 Pulse Source Pulse Oximeter Pulse Oximetry (%) 98 Oxygen Delivery Method Room Air Intake Visit Reasons: 6 month fu Allergies No Known Allergies Allergy (Verified 11/21/23 15:31) Medication List - Last Reviewed 11/21/23 by Madina Ojeda MA imipramine HCl 100 mg (2 x 50 mg) PO BID 90 days levonorgestrel (Mirena) intrauterine lorazepam 0.5 mg PO DAILY PRN 90 days Tobacco use date assessed: 11/21/23 Dental Screening Dental Screen Date: 11/21/23 Did you have a dental visit in the last 12 months?: Yes Did you have a dental problem in the last 6 months where you did not have access to dental care?: No Was dental information given to patient?: Patient has dentist HPI 6 month fu HPI Details Patient is 37-year-old female came in today for her regular follow-up appointment Patient have hypertension, she stopped lisinopril as it was causing cough Since she has stopped medication she is feeling much better Her blood pressure is elevated I am starting her on atenolol 25 mg Any side effect patient is to stop medication and reach out to me Labs done recently reviewed with the patient Fasting sugar came back at 01:01 we will continue to monitor Patient has gone on new diet and has lost 30 lb She will continue that tired Next time she comes in in February we will repeat labs again Patient have psychiatric illness for that she is taking imipramine and is doing well Lorazepam 0.5 mg as needed only All her medications are through PCP office She has stopped taking VESIcare for urine incontinence, as it did not do much, patient says that since her cough is better so is her urine incontinence PFSH Medical History Obesity hypoventilation syndrome Anxiety Morbid obesity Encounter for IUD removal and reinsertion History of anxiety H/O bipolar disorder Surgical History Hx of section Hx of cholecystectomy Family History Father Mental health disorder Maternal Grandmother Mental health disorder Social History Household Members: Spouse and Family Housing: House Do you presently have visiting nurse or other home services: No Patient Tobacco Use Status: Current someday Tobacco user Tobacco use type: Cigarette e-Cigarette/Vaping Use: Currently Using Substance Use Type: Marijuana service: No Current occupational status: unemployed Sexual orientation: Straight/Heterosexual Gender identity: Female Cognitive needs: No Hearing needs: No Vision needs: Yes Questionnaire PHQ-9 Over the last 2 weeks, how often have you been bothered by any of the following problems? 14143 - PHQ-9 Billing: Patient declined-do not bill Source: Developed by Drs. Gabriel Glover, Sabina Betts, Manish Chaudhry and colleagues, with an educational piper from [employer]. Thrive Questionnaire Date Thrive assessed: 06/18/23 AUDIT C Alcohol Use Questionnaire (AUDIT-C) 1. How often do you have a drink containing alcohol?: Monthly or less 2. How many drinks containing alcohol do you have on a typical day when you are drinking?: 1 or 2 3. How often do you have six or more drinks on one occasion?: Never Total Score: 1 Score Reviewed/Action Taken: Yes SALVADOR-7 AMB Questionnaire SALVADOR-7 Date SALVADOR - 7 assessed: 01/21/23 Source: Developed by Drs. Gabriel Glover, Sabina Betts, Manish Chaudhry and colleagues, with an educational piper from [employer]. Review of Systems Const Denies chills and Denies fever(s) ENT Denies epistaxis and Denies nasal discharge Card Denies chest pain Resp Denies chest congestion, Denies cough and Denies hemoptysis GI Denies diarrhea and Denies nausea Skin/Breast Denies rash Neuro Reports no additional complaints Psych Reports no additional complaints Endo Reports no additional complaints Physical exam (Primary Care) Vital Signs: Last Vital Signs Pulse 97 11/21/23 15:27 BP 144/86 H 11/21/23 15:27 Pulse Ox 98 11/21/23 15:27 Oxygen Delivery Method Room Air 11/21/23 15:27 BMI result Body Mass Index 50.3 Tobacco/Smoking Status: Tobacco use Status Tobacco use date assessed 11/21/23 11/21/23 15:31 Patient Tobacco Use Status Current someday Tobacco 11/21/23 15:31 Tobacco use type Cigarette 11/21/23 15:31 e-Cigarette/Vaping Use Currently Using 11/21/23 15:31 Thrive Assessment: Date of Thrive Assessment Date Thrive assessed 06/18/23 11/21/23 15:31 Const General: cooperative, comfortable and no acute distress Orientation/consciousness: patient oriented x3 HENMT Head: Yes normocephalic Eyes General: appearance normal, both eyes and all related structures Neck Neck: Yes supple Resp Effort & Inspection: normal respiratory effort, no cough and no stridor Cardio Rhythm: regular rhythm Heart sounds: S1 normal heart sound present and S2 normal heart sound present Skin General skin exam: turgor normal Neuro General: patient oriented x3, tone normal and moves all extremities Extrem Right lower extremity: no edema Left lower extremity: no edema Assessment and Plan Assessment & Plan (1) Major depression, recurrent: Code(s): F33.9 - Major depressive disorder, recurrent, unspecified Qualifiers: Active/Remission status: in partial remission Qualified Code(s): F33.41 - Major depressive disorder, recurrent, in partial remission (2) Bipolar 1 disorder: Code(s): F31.9 - Bipolar disorder, unspecified (3) Panic anxiety syndrome: Code(s): F41.0 - Panic disorder [episodic paroxysmal anxiety] (4) Morbid obesity due to excess calories: Code(s): E66.01 - Morbid (severe) obesity due to excess calories (5) Hypertension, essential: Code(s): I10 - Essential (primary) hypertension Plan Patient is 37-year-old female came in today for her regular follow-up appointment Patient have hypertension, she stopped lisinopril as it was causing cough Since she has stopped medication she is feeling much better Her blood pressure is elevated I am starting her on atenolol 25 mg Any side effect patient is to stop medication and reach out to me Labs done recently reviewed with the patient Fasting sugar came back at 01:01 we will continue to monitor Patient has gone on new diet and has lost 30 lb She will continue that tired Next time she comes in in February we will repeat labs again Patient have psychiatric illness for that she is taking imipramine and is doing well Lorazepam 0.5 mg as needed only All her medications are through PCP office She has stopped taking VESIcare for urine incontinence, as it did not do much, patient says that since her cough is better so is her urine incontinence Medications: New atenolol 25 mg PO DAILY 90 tabs 0RF Coding Level of Care Code Est Pt Level 3 (72861) Diagnoses Recurrent major depressive disorder, in partial remission F33.41 Active/Remission status: in partial remission Bipolar 1 disorder F31.9 Panic anxiety syndrome F41.0 Morbid obesity due to excess calories E66.01 Hypertension, essential I10
== END 2023-11-21 15:41 | disposition home or self-care (01) ==
PROVIDERS: PCP Internal Medicine; Visit Provider Internal Medicine
DX: I10 Essential (primary) hypertension (principal); F31.9 Bipolar disorder, unspecified; E66.01 Morbid (severe) obesity due to excess calories; Z68.43 Body mass index [BMI] 50.0-59.9, adult; F41.0 Panic disorder [episodic paroxysmal anxiety]
CPT/HCPCS: 99213

== ENCOUNTER 2023-12-08 19:59 | Emergency (ER) | payer OTHER, SELFPAY ==
[2023-12-08 20:21] VITALS: BP 160/95; PULSE 90; RESP 18; TEMP 36.7; O2SAT 98; BMI 48.7
--- NOTE | 2023-12-08 20:32 | ED.GENADULT ---
HPI - General Adult General Chief complaint: Eye Problems Stated complaint: left eye pain redness Related Data Home Medications ?Medication ?Instructions ?Recorded ?Confirmed levonorgestrel 21 mcg/24 hours (8 intrauterine 10/24/22 11/21/23 yrs) 52 mg intrauterine device (Mirena) Previous Rx's ?Medication ?Instructions ?Recorded imipramine HCl 50 mg tablet 100 mg (2 x 50 mg) PO BID 90 days 05/23/23 #360 tabs lorazepam 0.5 mg tablet 0.5 mg PO DAILY PRN anxiety 90 05/23/23 days #30 tabs atenolol 25 mg tablet 25 mg PO DAILY #90 tabs 11/21/23 Allergies Allergy/AdvReac Type Severity Reaction Status Date / Time No Known Allergies Allergy Verified 12/08/23 20:23 [facility] Past Medical History Medical History Obesity hypoventilation syndrome Anxiety Morbid obesity Encounter for IUD removal and reinsertion History of anxiety H/O bipolar disorder Surgical History Hx of section Hx of cholecystectomy Family History Family History Father Mental health disorder Maternal Grandmother Mental health disorder Social History Social History Household Members: Spouse and Family Housing: House Do you presently have visiting nurse or other home services: No Patient Tobacco Use Status: Former Tobacco user Tobacco use type: Cigarette e-Cigarette/Vaping Use: Currently Using Substance Use Type: Marijuana service: No Current occupational status: unemployed Sexual orientation: Straight/Heterosexual Gender identity: Female Cognitive needs: No Hearing needs: No Vision needs: Yes Physical Exam ED Vital Signs: Vital Signs - 24 hr 12/08/23 20:21 Temperature 98.1 F Pulse Rate 90 Respiratory Rate 18 Blood Pressure 160/95 H Pulse Oximetry 98 Oxygen Delivery Method Room Air BMI result Body Mass Index 48.7 Course Course Course Narrative: RME, this is a rapid medical exam performed by Burt Ruiz please refer to primary provider for complete H&P- 37-year-old female presents for evaluation of left eye pain. Patient reports his symptoms started 5 hours ago. She reports walking to her shed. She immediately felt something fall into her eye but she does not know what it could be. She reports a burning pain in feel as though there is something stuck in her lower eye that is ?moving around if my eye ball moves. ? On exam, pupils equal, round, reactive. There is no obvious foreign body on examination Discharge Plan Discharge Prescriptions: No Action imipramine HCl 50 mg tablet 100 mg PO BID 90 Days Qty: 360 0RF lorazepam 0.5 mg tablet 0.5 mg PO DAILY PRN (Reason: anxiety) 90 Days Qty: 30 0RF atenolol 25 mg tablet 25 mg PO DAILY Qty: 90 0RF Mirena 21 mcg/24 hours (8 yrs) 52 mg intrauterine device intrauterine Print Language: Indonesian
--- NOTE | 2023-12-08 23:48 | MHC.EDTECH ---
No Answer [id number]
== END 2023-12-09 00:26 | disposition left against medical advice (07) ==
PROVIDERS: Emergency Provider Emergency Medicine; PCP Internal Medicine
DX: H57.12 Ocular pain, left eye (principal); Z87.891 Personal history of nicotine dependence
CPT/HCPCS: 99281

== ENCOUNTER 2024-02-12 07:37 | Outpatient (AMB) | payer OTHER, SELFPAY ==
--- NOTE | 2024-02-12 07:43 | MHC.OFFVIS ---
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 Doing well with no concerns. She tries to eat healthy and stays active with exercise. No bleeding with the Mirena IUD. Currently is sexually active. She denies vaginal itching and irritation. STI screening offered; she declined. Denies family history of breast, ovarian or colon cancer. Last pap smear 2022, negative. Mammogram: To be scheduled. REPLACED BY [facility] Medical History Obesity hypoventilation syndrome Anxiety Morbid obesity Encounter for IUD removal and reinsertion History of anxiety H/O bipolar disorder Surgical History Hx of section Hx of cholecystectomy Family History Father Mental health disorder Maternal Grandmother Mental health disorder Social History Household Members: Spouse and Family Housing: House Do you presently have visiting nurse or other home services: No Patient Tobacco Use Status: Former Tobacco user Tobacco use type: Cigarette e-Cigarette/Vaping Use: Currently Using Substance Use Type: Marijuana service: No Current occupational status: unemployed Sexual orientation: Straight/Heterosexual Gender identity: Female Cognitive needs: No Hearing needs: No Vision needs: Yes Female Reproductive History Menstrual control method: progestin IUCD (Mirena 12/2022) Total pregnancies: 2 Full term: 2 Number of Living Children: 2 Date of last pap smear: 10/24/22 (neg pap and hpv) Review of Systems Const All systems reviewed & are unremarkable except as noted in HPI and below Reports as per HPI Eyes Reports no additional complaints ENT Reports no additional complaints Card Reports no additional complaints Resp Reports no additional complaints GI Reports as per HPI and Reports no additional complaints Reports as per HPI Musc Reports no additional complaints Skin/Breast Reports as per HPI Neuro Reports no additional complaints Psych Reports no additional complaints Endo Reports no additional complaints Braxton/Lymph Reports no additional complaints Aller/Immun Reports no additional complaints Physical Exam Vital Signs: Last Vital Signs BP 112/72 02/12/24 07:44 BMI result Body Mass Index 51.5 Const General: cooperative, healthy appearing, no acute distress, well developed and alert Orientation/consciousness: patient oriented x3 HEENT Head: Yes normal to inspection Eyes General: appearance normal, both eyes and all related structures Neck Neck: Yes normal visual inspection Thyroid: Thyroid normal Chest Chest palpation & inspection: normal inspection of the chest and other (no puckering, dimpling, peau de orange, retraction, discharge, masses) Breast/axilla inspection: normal inspection of the breasts Breast/axilla palpation: normal palpation of the breasts Resp Effort & Inspection: normal respiratory effort GI Inspection: Yes normal to inspection and Yes obesity Palpation (GI): Soft to palpation Rectal Exam - Female: deferred General: Yes bladder normal to palpation External Female Exam: normal external appearance and normal appearance of the urethra Speculum Exam - Vagina: normal appearance of the vagina, normal palpation and normal vaginal discharge Speculum Exam - Cervix: normal appearance of the cervix, normal palpation and Other cervical findings present (IUD strings present) Bimanual exam- vagina & uterus: normal bimanual exam, normal palpation, uterine size normal, bladder normal to palpation, normal palpation and non-tender Bimanual Exam- Adnexa, other: no masses Skin General skin exam: no rashes or lesions noted Rashes: no rashes Neuro General: patient oriented x3 Cognition (Neuro): normal cognition Extrem General: Yes normal to inspection Psych Attitude: cooperative Thought process: Normal thought process present Assessment & Plan Assessment & Plan (1) Encounter for well woman exam with routine gynecological exam: Code(s): Z01.419 - Encounter for gynecological examination (general) (routine) without abnormal findings Category: Medical Plan Discussed: Current recommendations for pap smears per ASCCP guidelines. Breast awareness and periodic breast exams. Maintain a healthy lifestyle including a well balanced diet and routine exercise. Mammogram yearly, order placed. Colonoscopy >45, or at risk sooner. Patient verbalizes understanding and agrees to the plan of care. She was given opportunity to ask questions and all questions were answered to the best of my ability. RTO in one year for annual sustainability coordinator examination. This note is constructed using voice recognition software. While every effort has been made to ensure accuracy, microsoft access developer errors may have been included. Orders: Orders MM tomosynthesis screening BI Today Z12.31 - Encounter for screening mammogram for malignant neoplasm of breast Coding Level of Care Code Est Pt Prev Care 40-64y(84782) Diagnoses Encounter for well woman exam with routine gynecological exam Z01.419
[2024-02-12 07:44] VITALS: BP 112/72; BMI 51.5
== END 2024-02-12 08:17 | disposition home or self-care (01) ==
PROVIDERS: PCP Internal Medicine; Visit Provider Advanced Practice Midwife
DX: Z01.419 Encounter for gynecological examination (general) (routine) without abnormal findings (principal)
CPT/HCPCS: 99396

== ENCOUNTER → 2024-02-12 07:37 | Outpatient (BNVA) | payer OTHER, SELFPAY | PROVIDERS: PCP Internal Medicine; Visit Provider Advanced Practice Midwife ==

== ENCOUNTER → 2024-03-25 07:30 | Outpatient (BNV) | payer OTHER, SELFPAY | PROVIDERS: PCP Internal Medicine; Visit Provider Internal Medicine | DX: Z12.31 Encounter for screening mammogram for malignant neoplasm of breast (principal) | CPT/HCPCS: 77063; 77067 ==

== ENCOUNTER 2024-03-25 07:32 | Outpatient (REF) | payer OTHER, SELFPAY ==
--- NOTE | ~2024-03-25 | MM_ITS ---
EXAMINATION: MM SCREENING DIGITAL BREAST TOMOSYNTHESIS, BILATERAL CLINICAL INFORMATION: Screening. Asymptomatic. COMPARISON: Mammography: Baseline. TECHNIQUE: Digital breast mammography with tomosynthesis is performed in both the craniocaudal and mediolateral oblique views along with computer-aided detection (CAD). FINDINGS: There are scattered areas of fibroglandular density (ACR BI-RADS breast composition Category b). There are no significant masses, abnormal calcifications, or other abnormalities. MM/MM tomosynthesis screening BI IMPRESSION: No mammographic evidence of malignancy. ASSESSMENT: BI-RADS BI-RADS 1 - Negative RECOMMENDATION: Routine annual mammography screening. 1 year F/U This examination should not preclude the clinical evaluation of a suspicious palpable abnormality. This patient's information was entered into a reminder system with a target due date for their next mammogram. Electronically signed by: Allyson James DO 04/06/2024 07:09 PM EDT
== END 2024-03-25 07:33 | disposition home or self-care (01) ==
LOC: HO.MAMMO 07:32
PROVIDERS: PCP Internal Medicine; Visit Provider Internal Medicine
DX: Z12.31 Encounter for screening mammogram for malignant neoplasm of breast (principal)
CPT/HCPCS: 77063; 77067

== ENCOUNTER 2024-03-26 08:01 | Outpatient (AMB) | payer OTHER, SELFPAY ==
[2024-03-26 08:02] VITALS: BP 130/76; PULSE 96; O2SAT 98; BMI 52.0
--- NOTE | 2024-03-26 08:02 | A.OFFPC_ITS ---
Vital Signs 03/26/24 08:02 Height 5 ft 8 in Weight 342 lb 2 oz BMI 52.0 BP 130/76 Blood Pressure Location Rt brachial Position Sitting Pulse 96 Pulse Source Pulse Oximeter Pulse Oximetry (%) 98 Oxygen Delivery Method Room Air Intake Visit Reasons: 9 month fu Allergies No Known Allergies Allergy (Verified 03/26/24 08:10) Medication List - Last Reconciled 03/26/24 by Kike Slaughter MD atenolol 25 mg PO DAILY imipramine HCl 100 mg (2 x 50 mg) PO BID 90 days levonorgestrel (Mirena) intrauterine lorazepam 0.5 mg PO DAILY PRN 90 days Tobacco use date assessed: 03/26/24 Dental Screening Dental Screen Date: 03/26/24 Did you have a dental visit in the last 12 months?: Yes Did you have a dental problem in the last 6 months where you did not have access to dental care?: No Was dental information given to patient?: Patient has dentist HPI 9 month fu HPI Details Patient is 38-year-old female came in today for her regular follow-up appointment Blood pressure is stable We switched her to atenolol 25 mg last visit because of cough Her cough is better She had her 1st mammogram OBGYN visit was in February Due for new set of labs Patient have psychiatric illness bipolar disorder, for that she is taking imipramine and is doing well Lorazepam 0.5 mg as needed only All her medications are through PCP office Stress incontinence urine, [facility] did not help the patient BMI is elevated patient is trying to lose weight Follow-up 3 months [facility] Medical History Obesity hypoventilation syndrome Anxiety Morbid obesity Encounter for IUD removal and reinsertion History of anxiety H/O bipolar disorder Surgical History Hx of section Hx of cholecystectomy Family History Father Mental health disorder Maternal Grandmother Mental health disorder Myocardial infarction Maternal Grandfather Myocardial infarction Sister No problems noted. Social History Household Members: Spouse and Family Housing: House Do you presently have visiting nurse or other home services: No Patient Tobacco Use Status: Former Tobacco user Tobacco use type: Cigarette e-Cigarette/Vaping Use: Currently Using Substance Use Type: Marijuana service: No Current occupational status: unemployed Sexual orientation: Straight/Heterosexual Gender identity: Female Cognitive needs: No Hearing needs: No Vision needs: Yes Questionnaire PHQ-9 Over the last 2 weeks, how often have you been bothered by any of the following problems? 1. Little interest or pleasure in doing things: several days 2. Feeling down, depressed, or hopeless: several days 3. Trouble falling or staying asleep, or sleeping too much: not at all 4. Feeling tired or having little energy: several days 5. Poor appetite or overeating: several days 6. Feeling bad about yourself - or that you are a failure or have let yourself or your family down: several days 7. Trouble concentrating on things, such as reading the newspaper or watching television: several days 8. Moving or speaking so slowly that other people could have noticed. Or the opposite - being so fidgety or restless that you have been moving around a lot more than usual: several days 9. Thoughts that you would be better off or of hurting yourself in some way: several days Total score: 8 Depression Screening Interpretation: Negative Depression Screening Done: Yes 35499 - PHQ-9 Billing: Yes Source: Developed by Drs. Gabriel Glover, Sabina Betts, Manish Chaudhry and colleagues, with an educational piper from [employer]. Thrive Questionnaire Date Thrive assessed: 03/26/24 I am a: Patient What is your living situation today?: I have a steady place to live Within the past 12 months, did the food you bought not last and you didn't have the money to get more?: Never true Within the past 12 months, did you worry whether your food would run out before you got money to buy more?: Never true Do you have trouble paying for medicines?: No Do you have trouble getting transportation to medical appointments?: No Do you have trouble paying your heating and electricity bill?: No Do you have trouble taking care of your child, family member or friend?: No Do you have trouble with day-to-day activities such as bathing, preparing meals, shopping, managing finances, etc.?: No Are you interested in more education?: No Please select the resources that you would like help with: None Currently or been in a relationship where the following occur: No concerns reported THRIVE Score: 0 AUDIT C Alcohol Use Questionnaire (AUDIT-C) 1. How often do you have a drink containing alcohol?: Monthly or less 2. How many drinks containing alcohol do you have on a typical day when you are drinking?: 1 or 2 3. How often do you have six or more drinks on one occasion?: Never Total Score: 1 Score Reviewed/Action Taken: Yes SALVADOR-7 AMB Questionnaire SALVADOR-7 Date SALVADOR - 7 assessed: 03/26/24 Feeling nervous, anxious, or on edge: 1 = Several days Not being able to stop or control worryin = Several days Worrying too much about different things: 1 = Several days Trouble relaxin = Several days Being so restless that it is hard to sit still: 1 = Several days Becoming easily annoyed or irritable: 1 = Several days Feeling afraid as if something awful might happen: 1 = Several days Total SALVADOR-7 score (0-4 normal; 5-9 mild; 10-14 moderate; 15-21 severe): 7 Source: Developed by Drs. Gabriel Glover, Sabina Betts, Manish Chaudhry and colleagues, with an educational piper from [employer]. SALVADOR-7 Assessment Billing SALVADOR-7 Assessment Tool: SALVADOR-7 Assessment 31750 Review of Systems Const Denies chills and Denies fever(s) ENT Denies epistaxis and Denies nasal discharge Card Denies chest pain Resp Denies chest congestion, Denies cough and Denies hemoptysis GI Denies diarrhea and Denies nausea Skin/Breast Denies rash Neuro Reports no additional complaints Psych Reports no additional complaints Endo Reports no additional complaints Physical exam (Primary Care) Vital Signs: Last Vital Signs Pulse 96 03/26/24 08:02 BP 130/76 03/26/24 08:02 Pulse Ox 98 03/26/24 08:02 Oxygen Delivery Method Room Air 03/26/24 08:02 BMI result Body Mass Index 52.0 Tobacco/Smoking Status: Tobacco use Status Tobacco use date assessed 03/26/24 03/26/24 08:13 Patient Tobacco Use Status Former Tobacco user 03/26/24 08:03 Tobacco use type Cigarette 03/26/24 08:03 e-Cigarette/Vaping Use Currently Using 03/26/24 08:03 PHQ-9: PHQ-9 Score PHQ-9: Total score 8 03/26/24 08:22 Depression Screening Interpretation: Negative Thrive Assessment: Date of Thrive Assessment Date Thrive assessed 03/26/24 03/26/24 08:13 Currently or been in a relationship where the following occur: No concerns reported Const General: cooperative, comfortable and no acute distress Orientation/consciousness: patient oriented x3 HENMT Head: Yes normocephalic Eyes General: appearance normal, both eyes and all related structures Neck Neck: Yes supple Resp Effort & Inspection: normal respiratory effort, no cough and no stridor Cardio Rhythm: regular rhythm Heart sounds: S1 normal heart sound present and S2 normal heart sound present Skin General skin exam: turgor normal Neuro General: patient oriented x3, tone normal and moves all extremities Extrem Right lower extremity: no edema Left lower extremity: no edema Assessment and Plan Assessment & Plan (1) Hypertension, essential: Code(s): I10 - Essential (primary) hypertension (2) Major depression, recurrent: Code(s): F33.9 - Major depressive disorder, recurrent, unspecified Qualifiers: Active/Remission status: in partial remission Qualified Code(s): F33.41 - Major depressive disorder, recurrent, in partial remission (3) Bipolar 1 disorder: Code(s): F31.9 - Bipolar disorder, unspecified (4) Panic anxiety syndrome: Code(s): F41.0 - Panic disorder [episodic paroxysmal anxiety] (5) Morbid obesity due to excess calories: Code(s): E66.01 - Morbid (severe) obesity due to excess calories Plan Patient is 38-year-old female came in today for her regular follow-up appointment Blood pressure is stable We switched her to atenolol 25 mg last visit because of cough Her cough is better She had her 1st mammogram OBGYN visit was in February Due for new set of labs Patient have psychiatric illness bipolar disorder, for that she is taking imipramine and is doing well Lorazepam 0.5 mg as needed only All her medications are through PCP office Stress incontinence urine, [facility] did not help the patient BMI is elevated patient is trying to lose weight Follow-up 3 months Orders: Orders Comprehensive [place]. Panel Fast Today E66.01 - Morbid (severe) obesity due to excess calories, F31.9 - Bipolar disorder, unspecified, F33.41 - Major depressive disorder, recurrent, in partial remission, F41.0 - Panic disorder [episodic paroxysmal anxiety], I10 - Essential (primary) hypertension Complete Blood Count Auto Diff Today E66.01 - Morbid (severe) obesity due to excess calories, F31.9 - Bipolar disorder, unspecified, F33.41 - Major d epressive disorder, recurrent, in partial remission, F41.0 - Panic disorder [episodic paroxysmal anxiety], I10 - Essential (primary) hypertension Medications: Refilled atenolol 25 mg PO DAILY 90 tabs 0RF imipramine HCl 100 mg (2 x 50 mg) PO BID 360 tabs 0RF 90 days Coding Level of Care Code Est Pt Level 4 (82672) Diagnoses Hypertension, essential I10 Recurrent major depressive disorder, in partial remission F33.41 Active/Remission status: in partial remission Bipolar 1 disorder F31.9 Panic anxiety syndrome F41.0 Morbid obesity due to excess calories E66.01 Additional Codes SALVADOR-7 Assessment Billing - SALVADOR-7 Assessment Tool: SALVADOR-7 Assessment [id number] ([id number])
== END 2024-03-26 08:26 | disposition home or self-care (01) ==
PROVIDERS: PCP Internal Medicine; Visit Provider Internal Medicine
DX: I10 Essential (primary) hypertension (principal); F31.9 Bipolar disorder, unspecified; E66.01 Morbid (severe) obesity due to excess calories; Z68.43 Body mass index [BMI] 50.0-59.9, adult; F41.0 Panic disorder [episodic paroxysmal anxiety]

== ENCOUNTER → 2024-03-26 08:01 | Outpatient (BNVA) | payer OTHER, SELFPAY | PROVIDERS: PCP Internal Medicine; Visit Provider Internal Medicine | DX: I10 Essential (primary) hypertension (principal) ==

== ENCOUNTER 2024-03-26 08:23 | Outpatient (REF) | payer OTHER, SELFPAY ==
[2024-03-26 10:05] LABS: MANUAL DIFF FLAG NO
[2024-03-26 10:10] LABS: Basophils Absolute Auto 0.1 X10*3/uL (0.0-0.2); Basophils Percent Auto 0.9 % (0-2); Eosinophils Absolute Auto 0.7 X10*3/uL (0.0-0.4); Eosinophils Percent Auto 5.5 % (0-4); Hemoglobin 14.1 g/dl (12.0-16.0); Imm Gran Abs Auto 0.25 X10*3/uL (0.00-0.03); Imm Gran Pct Auto 2.1 % (0.0-0.4); Lymphocytes Absolute Auto 3.5 X10*3/uL (1.2-4.9); Lymphocytes Percent Auto 29.6 % (20-40); Mean Corpuscular HGB Conc 32.8 g/dl (31.0-35.0); Mean Corpuscular Volume 91.5 fL (80.0-98.0); Mean Platelet Volume 9.3 fL (9.4-12.3); Monocytes Absolute Auto 0.7 X10*3/uL (0.1-1.2); Monocytes Percent Auto 5.5 % (2-11); Neutrophils Absolute Auto 6.7 x10*3/uL (2.0-8.3); Neutrophils Percent Auto 56.4 % (45-73); Platelet Count 346 X10*3/uL (160-400); Red Cell Distribution Width 13.4 % (11.0-16.0); White Blood Count 11.8 X10*3/uL (4.8-10.8)
[2024-03-26 10:44] LABS: Alanine Aminotransferase 26 U/L (0-31); Alkaline Phosphatase 118 U/L (39-117); Anion Gap 7 (12-20); Aspartate Amino Transferase 17 U/L (5-31); Bilirubin Total 0.2 mg/dL (0.0-1.0); Blood Urea Nitrogen 9 mg/dL (9-16); Carbon Dioxide 29 mmol/L (22-29); Chloride 108 mmol/L (96-108); Estimated Glomerular Filt Rate > 60; Glucose Fasting 106 mg/dL (60-99); Potassium 4.3 mmol/L (3.3-5.1); Sodium 140 mmol/L (135-145); Total Protein 7.4 g/dL (6.5-8.0)
== END 2024-03-26 08:24 | disposition home or self-care (01) ==
LOC: HO.HMGCLDS 08:23
PROVIDERS: PCP Internal Medicine; Visit Provider Internal Medicine
DX: I10 Essential (primary) hypertension (principal); F33.41 Major depressive disorder, recurrent, in partial remission; F31.9 Bipolar disorder, unspecified; F41.0 Panic disorder [episodic paroxysmal anxiety]; E66.01 Morbid (severe) obesity due to excess calories; Z68.43 Body mass index [BMI] 50.0-59.9, adult
CPT/HCPCS: 36415; 80053; 85025; 96127

== ENCOUNTER 2024-06-18 07:53 | Outpatient (AMB) | payer OTHER, SELFPAY ==
[2024-06-18 08:00] VITALS: BP 132/72; PULSE 86; O2SAT 97; BMI 54.1
--- NOTE | 2024-06-18 08:00 | A.OFFPC_ITS ---
Vital Signs 06/18/24 08:00 Height 5 ft 8 in Weight 356 lb BMI 54.1 BP 132/72 Blood Pressure Location Rt brachial Position Sitting Pulse 86 Pulse Source Pulse Oximeter Pulse Oximetry (%) 97 Intake Visit Reasons: PE/overdue Allergies No Known Allergies Allergy (Verified 06/18/24 08:00) Medication List - Last Reconciled 06/18/24 by Kike Slaughter MD atenolol 25 mg PO DAILY imipramine HCl 100 mg (2 x 50 mg) PO BID 90 days levonorgestrel (Mirena) intrauterine lorazepam 0.5 mg PO DAILY PRN 90 days Tobacco use date assessed: 03/26/24 Dental Screening Dental Screen Date: 03/26/24 HPI PE/overdue HPI Details Chief Complaint physical exam Patient reports intermittent episodes of anxiety and panic attacks. Assessment and Plan 38-year-old female with a history of gen eralized anxiety disorder and panic disorder presenting with recent episodes of anxiety that occur without identifiable triggers. She denies current therapy and is not interested in psychiatric consultation. Medications include atenolol for hypertension and imipramine for anxiety/bipolar disorder what is dyshidrosis management. Lorazepam is used sporadically for acute anxiety episodes. The patient also reports predicated eczema with blisters, which has not improved with topical treatment. The examination and lab results indicate morbid obesity, prediabetes, and a slightly elevated alkaline phosphatase level with otherwise normal metabolic and cholesterol panels. 1. Panic Disorder Maintain current medication regimen. No additional interventions as the patient declined psychiatric referral. 2. Dyshidrosis [pompholyx] L30.1 Symptoms self-resolve; advised monitoring and avoiding potential allergens. 3. Essential Hypertension Current treatment with atenolol 25 mg is controlling blood pressure effectively. Re-evaluate as necessary. 4. Prediabetes Discussed lifestyle modifications including diet and exercise. Monitor fasting glucose periodically. 5. Obesity Morbid Emphasized weight loss through lifestyle changes including diet and exercise. Further evaluation on follow-up. 6. Generalized Anxiety Disorder Continue current management with imipramine. Discussed the importance of therapy, which the patient declined. Lorazepam to be used as needed for acute symptoms. 7. Vitamin D Deficiency Encourage vitamin D supplementation due to prior low levels. 8. Mildly Elevated Alkaline Phosphatase Continue monitoring liver enzymes; no immediate intervention required. Diagnostic results - Labs: - Fasting glucose: 106 mg/dL (pr ediabetes) - Alkaline phosphatase: 118 U/L (mildly elevated) - Cholesterol panel: Normal - Thyroid function: Normal Problem List - Generalized Anxiety Disorder - Panic Disorder - Agoraphobia (historical diagnosis) - Essential Hypertension - Prediabetes - Dyshidrotic Eczema - Obesity (morbid) - Vitamin D Deficiency (historical) - Mildly Elevated Alkaline Phosphatase Health Maintenance - Discussed and encouraged vitamin D sup plementation. - Emphasized healthy lifestyle changes i ncluding diet and exercise for weight management and glucose control. - Confirmed up-to-date with OBGYN visits and vaccinations, including influenza and COVID-19. Patient Instructions - Continue taking prescribed medications as directed. - Use lorazepam sparingly for acute anxi ety symptoms. - Implement recommended dietary and exer cise modifications to aid in weight and glucose management. - Monitor for any changes in skin condit ion and avoid known allergens. - Obtain and regularly take vitamin D albright pplements. - Follow up in three months for repeat l abs and routine evaluation. Follow-up 4 months, labs needed before visit, physical exam 1 year [facility] Medical History Obesity hypoventilation syndrome Anxiety Morbid obesity Encounter for IUD removal and reinsertion History of anxiety H/O bipolar disorder Surgical History Hx of section Hx of cholecystectomy Family History Father Mental health disorder Maternal Grandmother Mental health disorder Myocardial infarction Maternal Grandfather Myocardial infarction Sister No problems noted. Social History Household Members: Spouse and Family Housing: House Do you presently have visiting nurse or other home services: No Patient Tobacco Use Status: Former Tobacco user Tobacco use type: Cigarette e-Cigarette/Vaping Use: Currently Using Substance Use Type: Marijuana service: No Current occupational status: unemployed Sexual orientation: Straight/Heterosexual Gender identity: Female Cognitive needs: No Hearing needs: No Vision needs: Yes Questionnaire Thrive Questionnaire Date Thrive assessed: 06/18/24 I am a: Patient What is your living situation today?: I have a steady place to live Within the past 12 months, did the food you bought not last and you didn't have the money to get more?: Never true Within the past 12 months, did you worry whether your food would run out before you got money to buy more?: Never true Do you have trouble paying for medicines?: No Do you have trouble getting transportation to medical appointments?: No Do you have trouble paying your heating and electricity bill?: No Do you have trouble taking care of your child, family member or friend?: No Do you have trouble with day-to-day activities such as bathing, preparing meals, shopping, managing finances, etc.?: No Are you currently unemployed and looking for a job?: No Are you interested in more education?: No Please select the resources that you would like help with: None Currently or been in a relationship where the following occur: No concerns reported THRIVE Score: 0 SALVADOR-7 AMB Questionnaire SALVADOR-7 Date SALVADOR - 7 assessed: 03/26/24 Source: Developed by Drs. Gabriel Glover, Sabina Betts, Manish Chaudhry and colleagues, with an educational piper from [employer]. Review of Systems Const Denies chills, Denies fever(s) and Denies headache(s) Eyes Denies blurry vision ENT Denies headache(s), Denies nasal discharge, Denies nasal obstruction, Denies odynophagia and Denies sinus pain Card Denies chest pain at rest and Denies chest pain with activity Resp Denies cough and Denies hemoptysis GI Denies diarrhea, Denies odynophagia, Denies vomiting and Denies hematemesis Reports as per HPI Musc Denies abnormal gait Skin/Breast Reports as per HPI Neuro Denies Neuro-related abnormal movements, Denies Abnormal speech present, Denies abnormal gait, Denies headache(s) and Denies Sensory deficit (Neuro) Psych Denies mood swings and Denies paranoia Endo Reports as per HPI Braxton/Lymph Reports as per HPI Aller/Immun Reports as per HPI Physical exam (Primary Care) Vital Signs: Last Vital Signs Pulse 86 06/18/24 08:00 BP 132/72 06/18/24 08:00 Pulse Ox 97 06/18/24 08:00 BMI result Body Mass Index 54.1 Tobacco/Smoking Status: Tobacco use Status Tobacco use date assessed 03/26/24 06/18/24 08:03 Patient Tobacco Use Status Former Tobacco user 06/18/24 08:03 Tobacco use type Cigarette 06/18/24 08:03 e-Cigarette/Vaping Use Currently Using 06/18/24 08:03 Thrive Assessment: Date of Thrive Assessment Date Thrive assessed 06/18/24 06/18/24 08:03 Currently or been in a relationship where the following occur: No concerns reported Const General: cooperative, comfortable and no acute distress Orientation/consciousness: patient oriented x3 HENMT Head: Yes normocephalic and Yes atraumatic Eyes General: appearance normal, both eyes and all related structures Pupils: Equal, round and reactive pupils present EOM: EOMs intact bilaterally Neck Neck: Yes supple and No lymphadenopathy Thyroid: Thyroid normal Lymphatic: no lymphadenopathy noted Resp Effort & Inspection: normal respiratory effort and able to speak in complete sentences Auscultation: clear to auscultation bilaterally Cardio Heart sounds: S1 normal heart sound present and S2 normal heart sound present GI Palpation (GI): Soft to palpation and nontender Auscultation: normal bowel sounds General: Yes no CVA tenderness Back/Spine/Pelvis Back: no CVA tenderness Skin General skin exam: elasticity normal and turgor normal Neuro General: patient oriented x3 and gait normal Cranial nerves: Yes Equal, round and reactive pupils present Speech: No Abnormal speech present Sensory Exam: No Sensory deficit (Neuro) Coordination: Romberg test negative Extrem General: Yes normal exam except as noted and No edema Coding Level of Care Code Est Pt Prev Care 40-64y(26373) Diagnoses Adult general medical examination Z00.00 Recurrent major depressive disorder, in partial remission F33.41 Active/Remission status: in partial remission Bipolar 1 disorder F31.9 Panic anxiety syndrome F41.0 Morbid obesity due to excess calories E66.01 Hypertension, essential I10 Dyshidrotic eczema L30.1 Assessment & Plan Assessment & Plan (1) Adult general medical examination: Code(s): Z00.00 - Encounter for general adult medical examination without abnormal findings Category: Medical (2) Major depression, recurrent: Code(s): F33.9 - Major depressive disorder, recurrent, unspecified Category: Medical Qualifiers: Active/Remission status: in partial remission Qualified Code(s): F33.41 - Major depressive disorder, recurrent, in partial remission (3) Bipolar 1 disorder: Code(s): F31.9 - Bipolar disorder, unspecified Category: Medical (4) Panic anxiety syndrome: Code(s): F41.0 - Panic disorder [episodic paroxysmal anxiety] Category: Medical (5) Morbid obesity due to excess calories: Code(s): E66.01 - Morbid (severe) obesity due to excess calories Category: Medical (6) Hypertension, essential: Code(s): I10 - Essential (primary) hypertension Category: Medical (7) Dyshidrotic eczema: Code(s): L30.1 - Dyshidrosis [pompholyx] Category: Medical Plan Chief Complaint physical exam Patient reports intermittent episodes of anxiety and panic attacks. Assessment and Plan 38-year-old female with a history of generalized anxiety disorder and panic disorder presenting with recent episodes of anxiety that occur without identifiable triggers. She denies current therapy and is not interested in psychiatric consultation. Medications include atenolol for hypertension and imipramine for anxiety/bipolar disorder what is dyshidrosis management. Lorazepam is used sporadically for acute anxiety episodes. The patient also reports predicated eczema with blisters, which has not improved with topical treatment. The examination and lab results indicate morbid obesity, prediabetes, and a slightly elevated alkaline phosphatase level with otherwise normal metabolic and cholesterol panels. 1. Panic Disorder Maintain current medication regimen. No additional interventions as the patient declined psychiatric referral. 2. Dyshidrosis [pompholyx] L30.1 Symptoms self-resolve; advised monitoring and avoiding potential allergens. 3. Essential Hypertension Current treatment with atenolol 25 mg is controlling blood pressure effectively. Re-evaluate as necessary. 4. Prediabetes Discussed lifestyle modifications including diet and exercise. Monitor fasting glucose periodically. 5. Obesity Morbid Emphasized weight loss through lifestyle changes including diet and exercise. Further evaluation on follow-up. 6. Generalized Anxiety Disorder Continue current management with imipramine. Discussed the importance of therapy, which the patient declined. Lorazepam to be used as needed for acute symptoms. 7. Vitamin D Deficiency Encourage vitamin D supplementation due to prior low levels. 8. Mildly Elevated Alkaline Phosphatase Continue monitoring liver enzymes; no immediate intervention required. Diagnostic results - Labs: - Fasting glucose: 106 mg/dL (prediabetes) - Alkaline phosphatase: 118 U/L (mildly elevated) - Cholesterol panel: Normal - Thyroid function: Normal Problem List - Generalized Anxiety Disorder - Panic Disorder - Agoraphobia (historical diagnosis) - Essential Hypertension - Prediabetes - Dyshidrotic Eczema - Obesity (morbid) - Vitamin D Deficiency (historical) - Mildly Elevated Alkaline Phosphatase Health Maintenance - Discussed and encouraged vitamin D supplementation. - Emphasized healthy lifestyle changes including diet and exercise for weight ma nagement and glucose control. - Confirmed up-to-date with OBGYN visits and vaccinations, including influenza and COVID-19. Patient Instructions - Continue taking prescribed medications as directed. - Use lorazepam sparingly for acute anxiety symptoms. - Implement recommended dietary and exercise modifications to aid in weight and glucose management. - Monitor for any changes in skin condition and avoid known allergens. - Obtain and regularly take vitamin D supplements. - Follow up in three months for repeat labs and routine evaluation. Follow-up 4 months, labs needed before visit, physical exam 1 year Orders: Orders [place]. Panel Fast Today E66.01 - Morbid (severe) obesity due to excess calories, F31.9 - Bipolar disorder, unspecified, F33.41 - Major depressive disorder, recurrent, in partial remission, F41.0 - Panic disorder [episodic paroxysmal anxiety], I10 - Essential (primary) hypertension, Z00.01 - Encounter for general adult medical examination with abnormal findings TSH reflex Free T4 Today E66.01 - Morbid (severe) obesity due to excess calories, F31.9 - Bipolar disorder, unspecified, F33.41 - Major depressive disorder, recurrent, in partial remission, F41.0 - Panic disorder [episodic paroxysmal anxiety], I10 - Essential (primary) hypertension, Z00.01 - Encounter for general adult medical examination with abnormal findings Complete Blood Count Auto Diff Today E66.01 - Morbid (severe) obesity due to excess calories, F31.9 - Bipolar disorder, unspecified, F33.41 - Major depressive disorder, recurrent, in partial remission, F41.0 - Panic disorder [episodic paroxysmal anxiety], I10 - Essential (primary) hypertension, Z00.01 - Encounter for general adult medical examination with abnormal findings Lipid Panel Today E66.01 - Morbid (severe) obesity due to excess calories, F31.9 - Bipolar disorder, unspecified, F33.41 - Major depressive disorder, recurrent, in partial remission, F41.0 - Panic disorder [episodic paroxysmal anxiety], I10 - Essential (primary) hypertension, Z00.01 - Encounter for general adult medical examination with abnormal findings Vitamin D 25-OH (D2 and D3) Today E66.01 - Morbid (severe) obesity due to excess calories, F31.9 - Bipolar disorder, unspecified, F33.41 - Major depressive disorder, recurrent, in partial remission, F41.0 - Panic disorder [episodic paroxysmal anxiety], I10 - Essential (primary) hypertension, Z00.01 - Encounter for general adult medical examination with abnormal findings Hemoglobin A1c Today E66.01 - Morbid (severe) obesity due to excess calories, F31.9 - Bipolar disorder, unspecified, F33.41 - Major depressive disorder, recurrent, in partial remission, F41.0 - Panic disorder [episodic paroxysmal anxiety], I10 - Essential (primary) hypertension, Z00.01 - Encounter for general adult medical examination with abnormal findings
== END 2024-06-18 08:24 | disposition home or self-care (01) ==
PROVIDERS: PCP Internal Medicine; Visit Provider Internal Medicine
DX: Z00.00 Encounter for general adult medical examination without abnormal findings (principal); F31.9 Bipolar disorder, unspecified; E66.01 Morbid (severe) obesity due to excess calories; Z68.43 Body mass index [BMI] 50.0-59.9, adult; F41.0 Panic disorder [episodic paroxysmal anxiety]; I10 Essential (primary) hypertension; L30.1 Dyshidrosis [pompholyx]

== ENCOUNTER 2024-08-23 08:21 | Outpatient (AMB) | payer OTHER, SELFPAY ==
[2024-08-23 08:24] VITALS: BP 122/80; PULSE 108; TEMP 36.8; O2SAT 95
--- NOTE | 2024-08-23 08:24 | AM.OFFWIN_ITS ---
Intake Vital Signs 08/23/24 08:24 Weight 361 lb BP 122/80 Blood Pressure Location Rt brachial Position Sitting Pulse 108 H Pulse Source Pulse Oximeter Temp 98.3 F Temp Source Oral Pulse Oximetry (%) 95 Oxygen Delivery Method Room Air Intake Visit Reasons: EP Cough, fever, diarrhea, chills Intake Note: Patient here for cough,fever, diarrhea, chills and slight sob that has been present since Friday. Patient Tobacco Use Status: Former Tobacco user Allergies No Known Allergies Allergy (Verified 08/23/24 08:30) Do you need a note to return to daycare/school/sports/work: No HPI HPI Comments History of Present Illness Details 38 y/o female patient who presents to [facility] in clinic with c/o Cough, fevers, chills, headaches, SOB and diarrhea since Friday. 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 [facility] Medical History (Updated 08/23/24 @ 08:41 by Dorothy Diaz NP) Acute respiratory disease Obesity hypoventilation syndrome Anxiety Morbid obesity Encounter for IUD removal and reinsertion History of anxiety H/O bipolar disorder Surgical History Hx of section Hx of cholecystectomy Family History Father Mental health disorder Maternal Grandmother Mental health disorder Myocardial infarction Maternal Grandfather Myocardial infarction Sister No problems noted. Social History Household Members: Spouse and Family Housing: House Do you presently have visiting nurse or other home services: No Patient Tobacco Use Status: Former Tobacco user Tobacco use type: Cigarette e-Cigarette/Vaping Use: Currently Using Substance Use Type: Marijuana service: No Current occupational status: unemployed Sexual orientation: Straight/Heterosexual Gender identity: Female Cognitive needs: No Hearing needs: No Vision needs: Yes Review of Systems Const All systems reviewed & are unremarkable except as noted in HPI and below Physical Exam Vital Signs: Last Vital Signs Temp 98.3 F 08/23/24 08:24 Pulse 108 H 08/23/24 08:24 BP 122/80 08/23/24 08:24 Pulse Ox 95 08/23/24 08:24 Oxygen Delivery Method Room Air 08/23/24 08:24 Const General: cooperative and no acute distress Nutritional Appearance: obese Orientation/consciousness: patient oriented x3 HEENT Head: Yes normocephalic Ears: external ears normal and TM abnormal with fluid behind the TM bilateral General nose exam: Normal external nose present and Nasal discharge present Face and sinus: Yes sinuses nontender Mouth: moist mucous membranes Resp Effort & Inspection: normal respiratory effort and able to speak in complete sentences Auscultation: clear to auscultation bilaterally, no crackles, no rales, no rhonchi and no wheezes Cardio Heart sounds: S1 normal heart sound present and S2 normal heart sound present Neuro General: patient oriented x3 Assessment & Plan Assessment & Plan (1) Acute respiratory disease: Code(s): J06.9 - Acute upper respiratory infection, unspecified Plan: Ordered SARs Ordered Tamiflu Orders: Orders SARS-CoV2/FLU/RSV Today J06.9 - Acute upper respiratory infection, unspecified Medications: New oseltamivir (Tamiflu) 75 mg PO BID 10 caps 0RF 5 days J06.9 - Acute upper respiratory infection, unspecified Coding Level of Care Code Est Pt Level 4 (91445) Diagnoses Acute respiratory disease J06.9 Time Spent (min) 20
== END 2024-08-23 08:59 | disposition home or self-care (01) ==
PROVIDERS: PCP Internal Medicine; Visit Provider Nurse Practitioner Family
DX: J06.9 Acute upper respiratory infection, unspecified (principal)

== ENCOUNTER 2024-08-23 08:21 | Outpatient (REF) | payer OTHER, SELFPAY ==
[2024-08-23 11:00] LABS: Influenza A PCR NEGATIVE (Negative); Influenza B PCR NEGATIVE (Negative); Resp Syncy Virus RNA Qual PCR NEGATIVE (Negative); SARS COV2 PCR INHOUSE NEGATIVE (Negative)
== END 2024-08-23 08:22 | disposition home or self-care (01) ==
LOC: HO.LAB 08:21
PROVIDERS: Nurse Practitioner Family; PCP Internal Medicine
DX: J06.9 Acute upper respiratory infection, unspecified (principal)
CPT/HCPCS: 0241U

== ENCOUNTER 2024-11-02 07:00 | Outpatient (REF) | payer OTHER, SELFPAY ==
[2024-11-02 09:59] LABS: MANUAL DIFF FLAG NO
[2024-11-02 10:12] LABS: Basophils Absolute Auto 0.1 X10*3/uL (0.0-0.2); Basophils Percent Auto 0.8 % (0-2); Eosinophils Absolute Auto 0.6 X10*3/uL (0.0-0.4); Hematocrit 42.4 % (37.0-47.0); Hemoglobin 13.9 g/dl (12.0-16.0); Imm Gran Abs Auto 0.38 X10*3/uL (0.00-0.03); Imm Gran Pct Auto 2.7 % (0.0-0.4); Lymphocytes Absolute Auto 4.4 X10*3/uL (1.2-4.9); Lymphocytes Percent Auto 30.9 % (20-40); Mean Corpuscular HGB Conc 32.8 g/dl (31.0-35.0); Mean Corpuscular Hemoglobin 30.5 pg (27.0-33.0); Mean Platelet Volume 9.6 fL (9.4-12.3); Monocytes Absolute Auto 0.9 X10*3/uL (0.1-1.2); Monocytes Percent Auto 6.2 % (2-11); Neutrophils Absolute Auto 7.8 x10*3/uL (2.0-8.3); Neutrophils Percent Auto 55.4 % (45-73); Platelet Count 350 X10*3/uL (160-400); Red Blood Count 4.56 X10*6/uL (4.20-5.50); Red Cell Distribution Width 13.2 % (11.0-16.0); White Blood Count 14.1 X10*3/uL (4.8-10.8)
[2024-11-02 10:37] LABS: Estimated Average Glucose 128 mg/dL; Hemoglobin A1C 158.9132 umol/L; Hemoglobin A1c % 6.1 % (<6.0); Total Hemoglobin (HGBA1C) 3702.2527 umol/L
[2024-11-02 10:49] LABS: Alanine Aminotransferase 34 U/L (0-31); Alkaline Phosphatase 121 U/L (39-117); Anion Gap 10 (12-20); Aspartate Amino Transferase 26 U/L (5-31); Bilirubin Total 0.3 mg/dL (0.0-1.0); Blood Urea Nitrogen 7 mg/dL (9-16); Calcium 8.9 mg/dL (8.4-10.2); Carbon Dioxide 26 mmol/L (22-29); Chloride 107 mmol/L (96-108); Cholesterol 154 mg/dL (<200); Estimated Glomerular Filt Rate > 60; Glucose Fasting 122 mg/dL (60-99); HDL Cholesterol 41 mg/dL (>40); LDL Cholesterol Calculated 93 mg/dL (<100); Potassium 4.1 mmol/L (3.3-5.1); Sodium 139 mmol/L (135-145); Total Protein 7.2 g/dL (6.5-8.0); Triglycerides 100 mg/dL (<150)
[2024-11-02 10:54] LABS: TSH reflex Free T4 3.35 uIU/mL (0.32-4.0)
[2024-11-06 18:18] LABS: Vitamin D 25-OH, D2 <4 ng/mL; Vitamin D 25-OH, D3 12 ng/mL; Vitamin D 25-OH, Total 12 ng/mL (30-100)
== END 2024-11-02 07:01 | disposition home or self-care (01) ==
LOC: HO.HMGCLDS 07:00
PROVIDERS: PCP Internal Medicine; Visit Provider Internal Medicine
DX: Z00.01 Encounter for general adult medical examination with abnormal findings (principal); F33.41 Major depressive disorder, recurrent, in partial remission; F31.9 Bipolar disorder, unspecified; F41.0 Panic disorder [episodic paroxysmal anxiety]; E66.01 Morbid (severe) obesity due to excess calories; I10 Essential (primary) hypertension; Z13.1 Encounter for screening for diabetes mellitus
CPT/HCPCS: 36415; 80053; 80061; 82306; 83036; 84443; 85025

== ENCOUNTER 2024-11-05 07:56 | Outpatient (AMB) | payer OTHER, SELFPAY ==
[2024-11-05 08:04] VITALS: BP 130/80; PULSE 80; O2SAT 98; BMI 56.4
--- NOTE | 2024-11-05 08:04 | A.OFFPC_ITS ---
Vital Signs 11/05/24 08:04 Height 5 ft 8 in Weight 371 lb BMI 56.4 BP 130/80 Blood Pressure Location Lt brachial Position Sitting Pulse 80 Pulse Source Pulse Oximeter Pulse Oximetry (%) 98 Oxygen Delivery Method Room Air Intake Visit Reasons: 4 month follow up/needs to update PCP Negotiator Required: No Accompanied by: Self / Same As Patient Allergies No Known Allergies Allergy (Verified 11/05/24 08:04) Medication List - Last Reconciled 11/05/24 by Kike Slaughter MD atenolol 25 mg PO DAILY imipramine HCl 100 mg (2 x 50 mg) PO BID 90 days levonorgestrel (Mirena) intrauterine lorazepam 0.5 mg PO DAILY PRN 90 days Tobacco use date assessed: 11/05/24 Dental Screening Dental Screen Date: 11/05/24 Did you have a dental visit in the last 12 months?: Yes Did you have a dental problem in the last 6 months where you did not have access to dental care?: No Was dental information given to patient?: Patient has dentist HPI 4 month follow up/needs to update PCP HPI Details History - The patient is a 38 year old female pr esenting with a toe injury evaluation. and regular follow up - Approximately three weeks ago, the pat wilda experienced a foot injury resulting from accidentally kicking a tire with full force while attempting to kick a bag obstructing the tire. - The patient reports significant swelli ng at the site of injury and described the sensation as similar to a bee sting. - The patient noted that the toe injury bled profusely, saturating the shoe and sock, and was advised by a nurse to present for medical evaluation. - Despite the substantial swelling, the patient reported no pain or discomfort while bending or walking. - The patient reported no sensation of p ulse at the site, minimizing concerns for infection but prompted concerns for potential fracture due to the incident's severity. - The patient continues to take medicati ons including atenolol 25 mg for blood pressure control and imipramine, and possesses a Mirena IUD for contraception. - Reports of slight anxiety exacerbation were discussed, with indications of requiring Lorazepam refills. The last refill of 90 tablets was provided in May. - The patient's liver enzymes were noted to be slightly elevated from recent labs but were not considered significant. - The patient manages occasional anxiety episodes with Lorazepam, feeling apprehensive when the medication supply diminishes. The refill planning was discussed during the appointment. Problem List - Toe Injury with Possible Fracture - Anxiety - Elevated Liver Enzymes - Hypertension - Use of Lorazepam for Anxiety Managemen t - Presence of a Cutaneous Laceration on Foot - morbid obesity Patient Instructions - Proceed to have an x-ray done at the [facility] next door to assess the extent of the toe injury. - Continue taking medications as current ly prescribed. - Use Lorazepam as needed for anxiety, w ith an updated prescription to take one tablet daily, and two if necessary. - Monitor for signs of infection such as pus formation; seek medical attention if symptoms worsen. - Schedule next follow-up visit in three months. Review of Systems - General: No fever no chills - Neurological: No headaches no dizziness - Ear nose throat: No sore throat no hearing difficulty no ear pain - Cardiovascular: No syncope, no chest pain, no palpitations - Gastrointestinal: No nausea vomiting or diarrhea - Endocrine: No polyuria polydipsia no heat intolerance - Genitourinary: No dysuria , no blood in urine Physical Exam General: No acute distress HEENT: No acute findings Neck: Supple Respiratory system: Able to talk in full sentences, no audible wheeze Cardiovascular: S1-S2 regular in rate and rhythm Gastrointestinal: No pain Extremities: Very swollen right toe, possible fracture, no pulse detected [employer]: Alert awake oriented x3 motor sensory intact Skin: Cut on the right toe, normal turgor PFSH Medical History Acute respiratory disease Obesity hypoventilation syndrome Anxiety Morbid obesity Encounter for IUD removal and reinsertion History of anxiety H/O bipolar disorder Surgical History Hx of section Hx of cholecystectomy Family History Father Mental health disorder Maternal Grandmother Mental health disorder Myocardial infarction Maternal Grandfather Myocardial infarction Sister No problems noted. Social History Household Members: Spouse and Family Housing: House Do you presently have visiting nurse or other home services: No Patient Tobacco Use Status: Former Tobacco user Tobacco use type: Cigarette e-Cigarette/Vaping Use: Currently Using Substance Use Type: Marijuana service: No Current occupational status: unemployed Sexual orientation: Straight/Heterosexual Gender identity: Female Cognitive needs: No Hearing needs: No Vision needs: Yes Questionnaire PHQ-9 Over the last 2 weeks, how often have you been bothered by any of the following problems? 1. Little interest or pleasure in doing things: several days 2. Feeling down, depressed, or hopeless: several days 3. Trouble falling or staying asleep, or sleeping too much: several days 4. Feeling tired or having little energy: several days 5. Poor appetite or overeating: several days 6. Feeling bad about yourself - or that you are a failure or have let yourself or your family down: several days 7. Trouble concentrating on things, such as reading the newspaper or watching television: several days 8. Moving or speaking so slowly that other people could have noticed. Or the opposite - being so fidgety or restless that you have been moving around a lot more than usual: several days 9. Thoughts that you would be better off or of hurting yourself in some way: several days Total score: 9 Depression Screening Interpretation: Positive Depression Screening Follow-up: Existing condition and In treatment Depression Screening Done: Yes 85354 - PHQ-9 Billing: Yes Source: Developed by Drs. Gabriel Glover, Sabina Betts, Manish Chaudhry and colleagues, with an educational piper from [employer]. Thrive Questionnaire Date Thrive assessed: 11/05/24 I am a: Patient What is your living situation today?: I have a steady place to live Within the past 12 months, did the food you bought not last and you didn't have the money to get more?: Never true Within the past 12 months, did you worry whether your food would run out before you got money to buy more?: Never true Do you have trouble paying for medicines?: No Do you have trouble getting transportation to medical appointments?: No Do you have trouble paying your heating and electricity bill?: No Do you have trouble taking care of your child, family member or friend?: No Do you have trouble with day-to-day activities such as bathing, preparing meals, shopping, managing finances, etc.?: No Are you currently unemployed and looking for a job?: No Are you interested in more education?: No Please select the resources that you would like help with: None Currently or been in a relationship where the following occur: No concerns reported THRIVE Score: 0 AUDIT C Alcohol Use Questionnaire (AUDIT-C) 1. How often do you have a drink containing alcohol?: Monthly or less 2. How many drinks containing alcohol do you have on a typical day when you are drinking?: 1 or 2 3. How often do you have six or more drinks on one occasion?: Never Total Score: 1 Score Reviewed/Action Taken: Yes SALVADOR-7 AMB Questionnaire SALVADOR-7 Date SALVADOR - 7 assessed: 11/05/24 Feeling nervous, anxious, or on edge: 1 = Several days Not being able to stop or control worryin = Several days Worrying too much about different things: 1 = Several days Trouble relaxin = Several days Being so restless that it is hard to sit still: 1 = Several days Becoming easily annoyed or irritable: 1 = Several days Feeling afraid as if something awful might happen: 1 = Several days Total SALVADOR-7 score (0-4 normal; 5-9 mild; 10-14 moderate; 15-21 severe): 7 Source: Developed by Drs. Gabriel Glover, Sabina Betts, Manish Chaudhry and colleagues, with an educational piper from [employer]. SALVADOR-7 Assessment Billing SALVADOR-7 Assessment Tool: SALVADOR-7 Assessment 32950 Physical exam (Primary Care) Vital Signs: Last Vital Signs Pulse 80 11/05/24 08:04 BP 130/80 11/05/24 08:04 Pulse Ox 98 11/05/24 08:04 Oxygen Delivery Method Room Air 11/05/24 08:04 BMI result Body Mass Index 56.4 Tobacco/Smoking Status: Tobacco use Status Tobacco use date assessed 11/05/24 11/05/24 08:07 Patient Tobacco Use Status Former Tobacco user 11/05/24 08:07 Tobacco use type Cigarette 11/05/24 08:07 e-Cigarette/Vaping Use Currently Using 11/05/24 08:07 PHQ-9: PHQ-9 Score PHQ-9: Total score 9 11/05/24 08:18 Depression Screening Interpretation: Positive Depression Screening Follow-up: Existing condition and In treatment Thrive Assessment: Date of Thrive Assessment Date Thrive assessed 11/05/24 11/05/24 08:07 Currently or been in a relationship where the following occur: No concerns reported Coding Level of Care Code Est Pt Level 4 (58605) Diagnoses Hypertension, essential I10 Injury of toe on right foot, initial encounter S99.921A Encounter type: initial encounter Laterality: right Recurrent major depressive disorder, in partial remission F33.41 Active/Remission status: in partial remission Bipolar 1 disorder F31.9 Panic anxiety syndrome F41.0 Morbid obesity due to excess calories E66.01 Dyshidrotic eczema L30.1 LFT elevation R79.89 Additional Codes SALVADOR-7 Assessment Billing - SALVADOR-7 Assessment Tool: SALVADOR-7 Assessment 10376 ([id number]) PHQ-9 - 65877 - PHQ-9 Billing: Yes ([id number]) Assessment & Plan Assessment & Plan (1) Hypertension, essential: Code(s): I10 - Essential (primary) hypertension Category: Medical (2) Toe injury: Code(s): S99.929A - Unspecified injury of unspecified foot, initial encounter Category: Medical Qualifiers: Encounter type: initial encounter Laterality: right Qualified Code(s): S99.921A - Unspecified injury of right foot, initial encounter (3) Major depression, recurrent: Code(s): F33.9 - Major depressive disorder, recurrent, unspecified Category: Medical Qualifiers: Active/Remission status: in partial remission Qualified Code(s): F33.41 - Major depressive disorder, recurrent, in partial remission (4) Bipolar 1 disorder: Code(s): F31.9 - Bipolar disorder, unspecified Category: Medical (5) Panic anxiety syndrome: Code(s): F41.0 - Panic disorder [episodic paroxysmal anxiety] Category: Medical (6) Morbid obesity due to excess calories: Code(s): E66.01 - Morbid (severe) obesity due to excess calories Category: Medical (7) Dyshidrotic eczema: Code(s): L30.1 - Dyshidrosis [pompholyx] Category: Medical (8) LFT elevation: Code(s): R79.89 - Other specified abnormal findings of blood chemistry Category: Medical Plan History - The patient is a 38 year old female presenting with a toe injury evaluation. and regular follow up - Approximately three weeks ago, the patient experienced a foot injury resulting from accidentally kicking a tire with full force while attempting to kick a bag obstructing the tire. - The patient reports significant swelling at the site of injury and described the sensation as similar to a bee sting. - The patient noted that the toe injury bled profusely, saturating the shoe and sock, and was advised by a nurse to present for medical evaluation. - Despite the substantial swelling, the patient reported no pain or discomfort while bending or walking. - The patient reported no sensation of pulse at the site, minimizing concerns for infection but prompted concerns for potential fracture due to the incident's severity. - The patient continues to take medications including atenolol 25 mg for blood pressure control and imipramine, and possesses a Mirena IUD for contraception. - Reports of slight anxiety exacerbation were discussed, with indications of requiring Lorazepam refills. The last refill of 90 tablets was provided in May. - The patient's liver enzymes were noted to be slightly elevated from recent labs but were not considered significant. - The patient manages occasional anxiety episodes with Lorazepam, feeling apprehensive when the medication supply diminishes. The refill planning was discussed during the appointment. Problem List - Toe Injury - Anxiety/bipolar disorder - Elevated Liver Enzymes - Hypertension - Use of Lorazepam for Anxiety Management - morbid obesity Patient Instructions - Proceed to have an x-ray done at the facility next door to assess the extent of the toe injury. - Continue taking medications as currently prescribed. - Use Lorazepam as needed for anxiety, with an updated prescription to take one tablet daily, and two if necessary. - Monitor for signs of infection such as pus formation; seek medical attention if symptoms worsen. - Schedule next follow-up visit in three months. Orders: Orders XR toe RT min 2V Today S99.923I - Unspecified injury of unspecified foot, initial encounter Medications: Refilled lorazepam 0.5 mg PO DAILY 90 days PRN 90 tabs 0RF anxiety
== END 2024-11-05 08:16 | disposition home or self-care (01) ==
LOC: HO.HMCC 07:56
PROVIDERS: PCP Internal Medicine; Visit Provider Internal Medicine
DX: I10 Essential (primary) hypertension (principal); F31.9 Bipolar disorder, unspecified; E66.01 Morbid (severe) obesity due to excess calories; Z68.43 Body mass index [BMI] 50.0-59.9, adult; S99.921A Unspecified injury of right foot, initial encounter; F41.0 Panic disorder [episodic paroxysmal anxiety]; L30.1 Dyshidrosis [pompholyx]; R79.89 Other specified abnormal findings of blood chemistry

== ENCOUNTER → 2024-11-05 07:56 | Outpatient (BNVA) | payer OTHER, SELFPAY | PROVIDERS: PCP Internal Medicine; Visit Provider Internal Medicine | DX: I10 Essential (primary) hypertension (principal); S99.921A Unspecified injury of right foot, initial encounter; F33.41 Major depressive disorder, recurrent, in partial remission; F31.9 Bipolar disorder, unspecified; F41.0 Panic disorder [episodic paroxysmal anxiety]; E66.01 Morbid (severe) obesity due to excess calories; Z68.43 Body mass index [BMI] 50.0-59.9, adult; L30.1 Dyshidrosis [pompholyx]; R79.89 Other specified abnormal findings of blood chemistry; W22.09XA Striking against other stationary object, initial encounter; Y93.9 Activity, unspecified; Y92.9 Unspecified place or not applicable; Y99.9 Unspecified external cause status | CPT/HCPCS: 96127 ==

== ENCOUNTER 2025-03-18 08:04 | Outpatient (AMB) | payer OTHER, SELFPAY ==
--- NOTE | 2025-03-18 08:07 | A.OFFPC_ITS ---
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 Accompanied by: Self / Same As Patient Allergies No Known Allergies Allergy (Verified 03/18/25 08:08) Medication List - Last Reconciled 03/18/25 by Kike Slaughter MD atenolol 25 mg PO DAILY imipramine HCl 100 mg (2 x 50 mg) PO BID 90 days levonorgestrel (Mirena) intrauterine lorazepam 0.5 mg PO DAILY PRN 90 days tirzepatide (weight loss) (Zepbound) 7.5 mg subcut QWEEK Tobacco use date assessed: 11/05/24 Dental Screening Dental Screen Date: 11/05/24 HPI 3 month follow up, resched HPI Details History The patient is a 39-year-old female presenting with gastrointestinal symptoms and weight management concerns. Gastrointestinal Symptoms: - Reports experiencing severe sulfur bur ps and intermittent diarrhea. - The patient mentions that diarrhea has persisted since gallbladder removal, with a slight worsening post-initiation of Zepbound. - Currently takes Nexium for gastrointes tinal discomfort with partial relief. - Denies experiencing reflux or vomiting ; however, mentions vomiting bile when experiencing anxiety. Anxiety: - The patient has historically managed a nxiety with lorazepam. - Recently increased use of lorazepam du e to an anxiety-inducing event involving a disturbance at [employer], which triggered previous fear-related symptoms. - Mentioned improvement previously but r ecent events have exacerbated anxiety. Weight Management: - Notable weight loss from 371 to 340 po unds since November. - Attributes weight loss to lifestyle mo difications, including reduced carbohydrate intake. - Engages in physically demanding work, which includes performing holds on others. Essential Hypertension: - Blood pressure on current regimen of a tenolol checks at 130/70 mmHg. Medical History: - Essential Hypertension, currently camryn ged with atenolol. - Anxiety disorder, previously managed w ith lorazepam. - Vitamin D deficiency (historically low levels). - Gastrointestinal side effects (sulfur burps and diarrhea) associated with Zepbound. - Nexium use for gastrointestinal sympt oms. Surgical History: - Cholecystectomy (gallbladder removal). Medications: - Atenolol for essential hypertension. - Imipramine - Mirena (likely for contraception). - Zepbound 7.5 mg weekly for weight loss - Nexium for gastrointestinal symptoms. - Lorazepam as needed for anxiety. 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 - Engaged in dietary modifications, spec ifically reducing carbohydrate intake, contributing to weight management. Problem List - Essential Hypertension - Anxiety Disorder - Gastrointestinal symptoms secondary to Zepbound - Vitamin D deficiency - Weight management Diagnostic results - Labs: A1c of 6.1%, slightly elevated l iver enzymes, historically low vitamin D levels. Patient Instructions - Continue with current medications. - Begin probiotic supplementation to ass ist with digestion. - Take vitamin D supplements as advised, considering a weekly high dose option. - Continue lifestyle modifications focus ed on weight management and reduced carbohydrate intake. - Schedule follow-up appointment in thre e months. Labs are needed today Lorazepam refill sent 45 tablets for 90 days as needed Review of Systems General: No fever no chills neurological: No headaches no dizziness ear nose throat: No sore throat no hearing difficulty no ear pain cardiovascular: No syncope, no chest pain, no palpitations gastrointestinal: No nausea vomiting or diarrhea endocrine: No polyuria polydipsia no heat intolerance genitourinary: No dysuria skin: No new complaints Physical Exam general: No acute distress HEENT: No acute findings neck: Supple respiratory system: Able to talk in full sentences, no audible wheeze no stridor cardiovascular: S1-S2 RRR gastrointestinal: No pain, reports sulfur burps and diarrhea extremities: No new findings [employer]: Alert awake oriented x3 motor sensory intact skin: Normal turgor [facility] Medical History (Updated 03/18/25 @ 08:50 by Kike Slaughter MD) Acute respiratory disease Obesity hypoventilation syndrome Anxiety Morbid obesity Encounter for IUD removal and reinsertion History of anxiety H/O bipolar disorder Surgical History (Updated 03/18/25 @ 08:50 by Kike Slaughter MD) Hx of section Hx of cholecystectomy Family History Father Mental health disorder Maternal Grandmother Mental health disorder Myocardial infarction Maternal Grandfather Myocardial infarction Sister No problems noted. Social History Household Members: Spouse and Family Housing: House Do you presently have visiting nurse or other home services: No Patient Tobacco Use Status: Former Tobacco user Tobacco use type: Cigarette e-Cigarette/Vaping Use: Currently Using Substance Use Type: Marijuana service: No Current occupational status: unemployed Sexual orientation: Straight/Heterosexual Gender identity: Female Cognitive needs: No Hearing needs: No Vision needs: Yes Questionnaire Thrive Questionnaire Date Thrive assessed: 11/05/24 I am a: Patient What is your living situation today?: I have a steady place to live Within the past 12 months, did the food you bought not last and you didn't have the money to get more?: Never true Within the past 12 months, did you worry whether your food would run out before you got money to buy more?: Never true Do you have trouble paying for medicines?: No Do you have trouble getting transportation to medical appointments?: No Do you have trouble paying your heating and electricity bill?: No Do you have trouble taking care of your child, family member or friend?: No Do you have trouble with day-to-day activities such as bathing, preparing meals, shopping, managing finances, etc.?: No Are you currently unemployed and looking for a job?: No Are you interested in more education?: No Please select the resources that you would like help with: None Currently or been in a relationship where the following occur: No concerns reported THRIVE Score: 0 SALVADOR-7 AMB Questionnaire SALVADOR-7 Date SALVADOR - 7 assessed: 11/05/24 Source: Developed by Drs. Gabriel Glover, Sabina Betts, Manish Chaudhry and colleagues, with an educational piper from [employer]. Physical exam (Primary Care) Vital Signs: Last Vital Signs Pulse 84 03/18/25 08:08 BP 130/70 03/18/25 08:08 Pulse Ox 97 03/18/25 08:08 BMI result Body Mass Index 51.7 Tobacco/Smoking Status: Tobacco use Status Tobacco use date assessed 11/05/24 03/18/25 08:12 Patient Tobacco Use Status Former Tobacco user 03/18/25 08:12 Tobacco use type Cigarette 03/18/25 08:12 e-Cigarette/Vaping Use Currently Using 03/18/25 08:12 Thrive Assessment: Date of Thrive Assessment Date Thrive assessed 11/05/24 03/18/25 08:12 Currently or been in a relationship where the following occur: No concerns reported Coding Level of Care Code Est Pt Level 4 (02366) Diagnoses Hypertension, essential I10 Belching R14.2 Panic anxiety syndrome F41.0 Morbid obesity due to excess calories E66.01 Chronic diarrhea K52.9 LFT elevation R79.89 Vitamin D deficiency E55.9 Hx of cholecystectomy Z90.49 Assessment & Plan Assessment & Plan (1) Hypertension, essential: Code(s): I10 - Essential (primary) hypertension Category: Medical (2) Belching: Code(s): R14.2 - Eructation Category: Medical (3) Panic anxiety syndrome: Code(s): F41.0 - Panic disorder [episodic paroxysmal anxiety] Category: Medical (4) Morbid obesity due to excess calories: Code(s): E66.01 - Morbid (severe) obesity due to excess calories Category: Medical (5) Chronic diarrhea: Code(s): K52.9 - Noninfective gastroenteritis and colitis, unspecified Category: Medical (6) LFT elevation: Code(s): R79.89 - Other specified abnormal findings of blood chemistry Category: Medical (7) Vitamin D deficiency: Code(s): E55.9 - Vitamin D deficiency, unspecified Category: Medical (8) Hx of cholecystectomy: Code(s): Z90.49 - Acquired absence of other specified parts of digestive tract Category: Surgical Plan History The patient is a 39-year-old female presenting with gastrointestinal symptoms and weight management concerns. Gastrointestinal Symptoms: - Reports experiencing severe sulfur burps and intermittent diarrhea. - The patient mentions that diarrhea has persisted since gallbladder removal, with a slight worsening post-initiation of Zepbound. - Currently takes Nexium for gastrointestinal discomfort with partial relief. - Denies experiencing reflux or vomiting; however, mentions vomiting bile when experiencing anxiety. Anxiety: - The patient has historically managed anxiety with lorazepam. - Recently increased use of lorazepam due to an anxiety-inducing event involving a disturbance at [employer], which triggered previous fear-related symptoms. - Mentioned improvement previously but recent events have exacerbated anxiety. Weight Management: - Notable weight loss from 371 to 340 pounds since November. - Attributes weight loss to lifestyle modifications, including reduced carbohydrate intake. - Engages in physically demanding work, which includes performing holds on other s. Essential Hypertension: - Blood pressure on current regimen of atenolol checks at 130/70 mmHg. Medical History: - Essential Hypertension, currently managed with atenolol. - Anxiety disorder, previously managed with lorazepam. - Vitamin D deficiency (historically low levels). - Gastrointestinal side effects (sulfur burps and diarrhea) associated with Zepbound. - Nexium use for gastrointestinal symptoms. Surgical History: - Cholecystectomy (gallbladder removal). Medications: - Atenolol for essential hypertension. - Imipramine - Mirena (likely for contraception). - Zepbound 7.5 mg weekly for weight loss - Nexium for gastrointestinal symptoms. - Lorazepam as needed for anxiety. Social History: - Employed in a physically demanding occupation involving movement and manual engagement. - Engaged in dietary modifications, specifically reducing carbohydrate intake, contributing to weight management. Problem List - Essential Hypertension - Anxiety Disorder - Gastrointestinal symptoms secondary to Zepbound - Vitamin D deficiency - Weight management Diagnostic results - Labs: A1c of 6.1%, slightly elevated liver enzymes, historically low vitamin D levels. Patient Instructions - Continue with current medications. - Begin probiotic supplementation to assist with digestion. - Take vitamin D supplements as advised, considering a weekly high dose option. - Continue lifestyle modifications focused on weight management and reduced carbohydrate intake. - Schedule follow-up appointment in three months. Labs are needed today Lorazepam refill sent 45 tablets for 90 days as needed Orders: Orders Hemoglobin A1c Today E55.9 - Vitamin D deficiency, unspecified, E66.01 - Morbid (severe) obesity due to excess calories, F41.0 - Panic disorder [episodic paroxysmal anxiety], I10 - Essential (primary) hypertension, R79.89 - Other specified abnormal findings of blood chemistry LDL Cholesterol Direct Today E55.9 - Vitamin D deficiency, unspecified, E66.01 - Morbid (severe) obesity due to excess calories, F41.0 - Panic disorder [episodic paroxysmal anxiety], I10 - Essential (primary) hypertension, R79.89 - Other specified abnormal findings of blood chemistry TSH reflex Free T4 Today E55.9 - Vitamin D deficiency, unspecified, E66.01 - Morbid (severe) obesity due to excess calories, F41.0 - Panic disorder [episodic paroxysmal anxiety], I10 - Essential (primary) hypertension, R79.89 - Other specified abnormal findings of blood chemistry Amylase Today E55.9 - Vitamin D deficiency, unspecified, E66.01 - Morbid (severe) obesity due to excess calories, F41.0 - Panic disorder [episodic parox ysmal anxiety], I10 - Essential (primary) hypertension, R79.89 - Other specified abnormal findings of blood chemistry Complete Blood Count Auto Diff Today E55.9 - Vitamin D deficiency, unspecified, E66.01 - Morbid (severe) obesity due to excess calories, F41.0 - Panic disorder [episodic paroxysmal anxiety], I10 - Essential (primary) hypertension, R79.89 - Other specified abnormal findings of blood chemistry Comprehensive Met. Panel Today E55.9 - Vitamin D deficiency, unspecified, E66.01 - Morbid (severe) obesity due to excess calories, F41.0 - Panic disorder [episodic paroxysmal anxiety], I10 - Essential (primary) hypertension, R79.89 - Other specified abnormal findings of blood chemistry Lipase Today E55.9 - Vitamin D deficiency, unspecified, E66.01 - Morbid (severe) obesity due to excess calories, F41.0 - Panic disorder [episodic paroxysmal anxiety], I10 - Essential (primary) hypertension, R79.89 - Other specified abnormal findings of blood chemistry Medications: Refilled lorazepam 0.5 mg PO DAILY PRN 45 tabs 0RF anxiety 90 days
[2025-03-18 08:08] VITALS: BP 130/70; PULSE 84; O2SAT 97; BMI 51.7
--- OUTSIDE RECORDS SUMMARY | 2025-03-18 08:22 | XMS_ITS | Patient Health Record ---
Author Organization [facility] [address] Address [address] [place] [address] Care Team Providers Care Installation Service Representative Name Role Phone Kike Slaughter Primary Care Provider UnavailErlinda Delgado Unavailable [phone] Allergies No Known Allergies Reason For Referral No Information Medications Medication SIG (Take, Route, Fr equency, Duration) Notes Start Date End Date Status Imipramine HCl 50 MG 1 tablet 1 hour bef ore bedtime Orally Once a day Active NexIUM 20 MG 1 capsule 1/2 to 1 h our before morning meal Orally Once a day 02/22/2025 A ctive Atenolol 25 MG 1 tablet Orally Once a day Active LORazepam 0.5 MG 1 tablet at bedtime as needed Orally Once a day Active Zepbound 7.5 MG/0.5ML inject 7.5 mg Subc utaneous weekly; Duration: 28 days Active Social History Tobacco Use: Social History Observation Description Date Details (start date - stop date) Current Smoker NA - NA Tobacco use other than smoking: Question Answer Notes Are you an other tobacco user? Yes Tobacco Control (Standard) Question Answer Notes Tobacco use: Current smoker How many cigarettes a day do you smoke? 5 or les s How soon after you wake up do you smoke your fir st cigarette? 6-30 minutes Are you interested in quitting? Not ready to parth t AUDIT-C (Standard) Question Answer Notes Did you have a drink containing alcohol in the p ast year? No Points 0 Interpretation Negative Section Notes: alcohol: none tobacco: 0.25 PPD x2 years marijuana: daily alcohol: none tobacco: 0.25 PPD x2 years marijuana: daily alcohol: none tobacco: 0.25 PPD x2 years marijuana: daily Problems Problem Type SNOMED Code ICD Code Onset Dates Problem Status W/U Status Risk Notes Problem Abnormal blood pressure (57690288) Encounter for examination of blood pressure with abnormal findings (Z01.31) Active confirmed Problem Essential hypertension (98072769) Essential hypertension (I10) Active confirmed Problem Morbid obesity (603687230) Morbid obesity (E66.01) Active confirmed Problem Body mass index 40+ - severely obese (670387959) BMI 50.0-59.9, adult (Z68.43) Active confirmed Problem Essential hypertension (88085277) Hypertension, essential (I10) Active confirmed Problem Generalized anxiety disorder (86323068) Anxiety, generalized (F41.1) Active confirmed Vital Signs Heart Rate 89 /min 02/22/2025 Oximetry 99 % 02/22/2025 Blood pressure diastolic 86 mm Hg 02/22/2025 Height 67 in 02/22/2025 Blood pressure systolic 118 mm Hg 02/22/2025 Weight 344.2 lbs 02/22/2025 BMI 53.9 kg/m2 02/22/2025 Encounters Encounter Location Date Provider Diagnosis [facility] [address] [address] 12/17/2024 Erlinda Normoyle Morbid obesity E66.0 1 ; BMI 50.0-59.9, adult Z68.43 ; Essential hypertension I10 ; Prediabetes R73.03 ; Anxiety, generalized F41.1 and Encounter for examination of blood pressure with abnormal findings Z01.31 [facility] [address] [address] 01/14/2025 Erlinda Normoyle Morbid obesity E66.0 1 ; BMI 50.0-59.9, adult Z68.43 ; Essential hypertension I10 ; Prediabetes R73.03 ; Anxiety, generalized F41.1 and Encounter for examination of blood pressure with abnormal findings Z01.31 [facility] [address] [address] 02/22/2025 Erlinda Normoyle Morbid obesity E66.0 1 ; BMI 50.0-59.9, adult Z68.43 ; Essential hypertension I10 ; Prediabetes R73.03 ; Anxiety, generalized F41.1 and Encounter for examination of blood pressure without abnormal findings Z01.30 [facility] [address] [address] 12/17/2024 Erlinda Normoyle [facility] [address] [place] [address] 12/30/2024 Erlinda Normoyle [facility] [address] [place] [address] 01/03/2025 Erlinda Normoyle [facility] [address] [place] [address] 02/11/2025 Erlinda Normoyle Morbid obesity E66.0 1 Assessments Encounter Date Diagnosis (ICD Code) Assessment Notes Treatment Notes Treatment Clinical Notes Section Notes 12/17/2024 Morbid obesity (ICD-10 - E66.01) Luciana is a 38-year-old female who presents for weight management consult. Medical history, labs, allergies, medications, and social history reviewed with the patient. Provided education on healthy diet and lifestyle which includes high-protein, low carbohydrate, high-fiber, and a variety of fruits and vegetables. Patient encouraged to exercise with emphasis on resistance training minimum 3 times per week to maintain muscle mass and cardio to burn fat. All patient questions answered. Patient will follow-up in 4 weeks for weight management. #Morbid obesity: 12/17/2024: Weight 365.1 pounds, BMI 57.18. Patient followed with [facility] weight management program and did lose weight. For 12 months, she has been on the keto diet, and exercises daily for 30 minutes by aerobic dancing, different sports, and walking. She successfully lost 100 pounds. She did gain some weight back due to stress after her sister unexpectedly passed. She continues these lifestyle modifications, however, she has been unable to lose further weight. Discussed oral and injectable medications, her and friend are on Zepbound, patient expresses interest. Discussed side effects including nausea, constipation, reflux, muscle loss, hair thinning. Plan to submit PA today. Follow-up in 4 weeks. #Hypertension: BP today elevated 142/86, repeat 154/92. Patient states she has severe anxiety and her blood pressure is usually elevated in offices. She does have a BP monitoring cuff at home, but infrequently measures. Patient advised to measure BP at home 1-2 times per day. Continue atenolol 25 mg daily. Continue follow-up with PCP. #Prediabetes: Patient states last year her A1c was in prediabetic range. Most recently, she states a few months ago her A1c is now in the normal range. Likely due to lifestyle modifications. Encouraged to continue lifestyle modifications as above. #Anxiety: Patient reports severe anxiety, she has trialed several different medications with no relief. Denies any thoughts of hurting self or others. Continue following with PCP. Continue imipramine 50 mg daily, and lorazepam 0.5 mg as needed. Patient encouraged to contact the office if symptoms worsen, as we can provide additional resources. Patient was reassured and welcomed to the practice. We discussed that we stress a hollistic medical approach with emphasis on lifestyle modification. Patient was informed that a healthy lifestyle with exercise and good eating habits can help reduce his risk of medical complications. Patient is explained that obesity increases his risk of diabetes, cardiovascular disease, or organ damage. We spent a lot of time discussing the relationship between food, exercise, sleep, mental health and obesity. Patient was counseled on the importance EATING local, organic food when possible. Patient was educated on clean 15 and dirty dozen. I provided information about reading books called The Food Rules by Jean Paul Dixon and Eat Fat Get Lean by Dr Tony Laura. Self education is important in the journey for weight management. Patient was offered diagnostic testing/ SECA scale. We want to measure visceral adiposity, advanced body composition, adverse lipids, fatty acid balance, risk for heart disease and atherosclerosis, markers of inflammation and genetic susceptibility. Patient was counseled on weight management and was advised to lose weight using A. Meal Replacement Products Patient was educated on the replacement products called optifast. This is a good way of taking fixed amount of calories. It has been shown in studies to be ineffective weight management tool. This however has to be coupled with lifestyle intervention as well as laboratory data and EKG monitoring. It is impossible to know how a person will tolerate complete meal replacement. The side effects of meal replacement and weight loss could include syncopal attacks, dizziness, gallstones, potential cholecystectomy, possible heart attack and even . The benefits of meal replacement would be potential weight loss but no guarantees can be made. Meal replacement products are not covered by insurance. Once the patient has bought these products we cannot return them B. Lifestyle management which includes several strategies as below 1. Eat a low carbohydrate good fat good protein diet. Eliminate refined carbohydrates from the diet. Limit sugared beverages. Eat local organic when possible. Cook your own meals. Read food labels. Focus on healthy snacks. Portion control and food with low glycemic index 2. Exercise regularly. Try to get at least 6000 steps a day. Use a predominant to track activity level. Consider using apps like 7 minute excercise, myThe Daily Voicepal, lose it, stick as needed for self-monitoring and weight management. Consider group exercises. Consider hiring a personal banking assistant. Regular exercise is arenas to sustainable health and prevents as a buffer against weight regain 3. Sleep is most important for healing. Try to sleep at least 6-8 hours a night. A good quality sleep needs a sleep ritual with ideal room temperature of around 68. It might help to take a shower and have no electronics in the room and sleep in a very dark room without artificial light. Start sleep routine and get up early in the morning and go to bed on time. 4. Make a social connection. Surround yourself with positive people with positive energy. Connect with friends and family. 5. Get into the habit of meditating and mindfulness while doing everything. 6. Go outside and connect with nature. C. Prescription medications Patient was educated on the use of prescription medications for medical weight loss. This is a growing list and includes phentermine, Topamax,Qsymia, contrave, belviq and saxenda, wegovy etc. All prescription medications could have side effects including but not limited to kidney stones, seizure disorder cardiac arrhythmias heart attack pancreatitis, GI effects, Etc. Patient was encouraged to read the prescription insert and have coaching with their pharmacist and make an informed decision about taking medication and know that these medications are being prescribed with good intentions and we do not know how a patient would react to her medication. Some medications are FDA approved for weight loss and there is also off label use depending on patient's inability to afford medications in an attempt to lose weight D. Behavioral counseling was done to establish a relationship between food and an mood. Patient was provided information about local counseling and psychiatry and Dr Wyatt at [facility]. We would like to cover regular topics and build on low glycemic eating exercise mindful eating, using yoga and meditation along with deep breathing and connecting with friends and family. E. MASS PAT reviewed, Patient's current medications were reviewed and opinion was given on medication that can cause weight gain and can be substituted F. Patient was assessed for risk with obesity including and not limiting to atherosclerosis heart disease stroke kidney disease, restrictive lung disease, irritable bowel syndrome and overall mortality. Risk of developing prediabetes diabetes and metabolic syndrome was discussed G. Therapeutic plan: We have decided to make therapeutic plan which would include choosing wisely on calories restricting portion getting active, tracking weight, getting good quality sleep and working on time management H. Patient will follow up in 4 weeks for weight management Total time spent today was 60 minutes of which greater than 50% was spent on coordinating and counseling Case discussed with collaborating physician Oksana Cullen who reviewed the assessment and plan. Chart, medications, labs, vital signs reviewed. Dictation was accomplished with the use of haku voice recognition software, prone to medical misidentifications and grammatical errors. This is unintentional and the practitioner does try to identify and correct these, but some could still be present. Please do not hesitate to contact practitioner for clarification. All questions answered to patients satisfaction. Patient verbalized understanding of diagnosis and treatments explained. To call sooner prior to next visit it any questions/concerns arise. 12/17/2024 BMI 50.0-59.9, adult (ICD-10 - Z68.43) Luciana is a 38-year-old female who presents for weight management consult. Medical history, labs, allergies, medications, and social history reviewed with the patient. Provided education on healthy diet and lifestyle which includes high-protein, low carbohydrate, high-fiber, and a variety of fruits and vegetables. Patient encouraged to exercise with emphasis on resistance training minimum 3 times per week to maintain muscle mass and cardio to burn fat. All patient questions answered. Patient will follow-up in 4 weeks for weight management. #Morbid obesity: 12/17/2024: Weight 365.1 pounds, BMI 57.18. Patient followed with [facility] weight management program and did lose weight. For 12 months, she has been on the keto diet, and exercises daily for 30 minutes by aerobic dancing, different sports, and walking. She successfully lost 100 pounds. She did gain some weight back due to stress after her sister unexpectedly passed. She continues these lifestyle modifications, however, she has been unable to lose further weight. Discussed oral and injectable medications, her and friend are on Zepbound, patient expresses interest. Discussed side effects including nausea, constipation, reflux, muscle loss, hair thinning. Plan to submit PA today. Follow-up in 4 weeks. #Hypertension: BP today elevated 142/86, repeat 154/92. Patient states she has severe anxiety and her blood pressure is usually elevated in offices. She does have a BP monitoring cuff at home, but infrequently measures. Patient advised to measure BP at home 1-2 times per day. Continue atenolol 25 mg daily. Continue follow-up with PCP. #Prediabetes: Patient states last year her A1c was in prediabetic range. Most recently, she states a few months ago her A1c is now in the normal range. Likely due to lifestyle modifications. Encouraged to continue lifestyle modifications as above. #Anxiety: Patient reports severe anxiety, she has trialed several different medications with no relief. Denies any thoughts of hurting self or others. Continue following with PCP. Continue imipramine 50 mg daily, and lorazepam 0.5 mg as needed. Patient encouraged to contact the office if symptoms worsen, as we can provide additional resources. Patient was reassured and welcomed to the practice. We discussed that we stress a hollistic medical approach with emphasis on lifestyle modification. Patient was informed that a healthy lifestyle with exercise and good eating habits can help reduce his risk of medical complications. Patient is explained that obesity increases his risk of diabetes, cardiovascular disease, or organ damage. We spent a lot of time discussing the relationship between food, exercise, sleep, mental health and obesity. Patient was counseled on the importance EATING local, organic food when possible. Patient was educated on clean 15 and dirty dozen. I provided information about reading books called The Food Rules by Jean Paul Dixon and Eat Fat Get Lean by Dr Tony Laura. Self education is important in the journey for weight management. Patient was offered diagnostic testing/ SECA scale. We want to measure visceral adiposity, advanced body composition, adverse lipids, fatty acid balance, risk for heart disease and atherosclerosis, markers of inflammation and genetic susceptibility. Patient was counseled on weight management and was advised to lose weight using A. Meal Replacement Products Patient was educated on the replacement products called optifast. This is a good way of taking fixed amount of calories. It has been shown in studies to be ineffective weight management tool. This however has to be coupled with lifestyle intervention as well as laboratory data and EKG monitoring. It is impossible to know how a person will tolerate complete meal replacement. The side effects of meal replacement and weight loss could include syncopal attacks, dizziness, gallstones, potential cholecystectomy, possible heart attack and even . The benefits of meal replacement would be potential weight loss but no guarantees can be made. Meal replacement products are not covered by insurance. Once the patient has bought these products we cannot return them B. Lifestyle management which includes several strategies as below 1. Eat a low carbohydrate good fat good protein diet. Eliminate refined carbohydrates from the diet. Limit sugared beverages. Eat local organic when possible. Cook your own meals. Read food labels. Focus on healthy snacks. Portion control and food with low glycemic index 2. Exercise regularly. Try to get at least 6000 steps a day. Use a predominant to track activity level. Consider using apps like 7 minute excercise, myTistagamesnesspal, lose it, stick as needed for self-monitoring and weight management. Consider group exercises. Consider hiring a personal banking assistant. Regular exercise is arenas to sustainable health and prevents as a buffer against weight regain 3. Sleep is most important for healing. Try to sleep at least 6-8 hours a night. A good quality sleep needs a sleep ritual with ideal room temperature of around 68. It might help to take a shower and have no electronics in the room and sleep in a very dark room without artificial light. Start sleep routine and get up early in the morning and go to bed on time. 4. Make a social connection. Surround yourself with positive people with positive energy. Connect with friends and family. 5. Get into the habit of meditating and mindfulness while doing everything. 6. Go outside and connect with nature. C. Prescription medications Patient was educated on the use of prescription medications for medical weight loss. This is a growing list and includes phentermine, Topamax,Qsymia, contrave, belviq and saxenda, wegovy etc. All prescription medications could have side effects including but not limited to kidney stones, seizure disorder cardiac arrhythmias heart attack pancreatitis, GI effects, Etc. Patient was encouraged to read the prescription insert and have coaching with their pharmacist and make an informed decision about taking medication and know that these medications are being prescribed with good intentions and we do not know how a patient would react to her medication. Some medications are FDA approved for weight loss and there is also off label use depending on patient's inability to afford medications in an attempt to lose weight D. Behavioral counseling was done to establish a relationship between food and an mood. Patient was provided information about local counseling and psychiatry and Dr Wyatt at [facility]. We would like to cover regular topics and build on low glycemic eating exercise mindful eating, using yoga and meditation along with deep breathing and connecting with friends and family. E. MASS PAT reviewed, Patient's current medications were reviewed and opinion was given on medication that can cause weight gain and can be substituted F. Patient was assessed for risk with obesity including and not limiting to atherosclerosis heart disease stroke kidney disease, restrictive lung disease, irritable bowel syndrome and overall mortality. Risk of developing prediabetes diabetes and metabolic syndrome was discussed G. Therapeutic plan: We have decided to make therapeutic plan which would include choosing wisely on calories restricting portion getting active, tracking weight, getting good quality sleep and working on time management H. Patient will follow up in 4 weeks for weight management Total time spent today was 60 minutes of which greater than 50% was spent on coordinating and counseling Case discussed with collaborating physician Oksana Cullen who reviewed the assessment and plan. Chart, medications, labs, vital signs reviewed. Dictation was accomplished with the use of haku voice recognition software, prone to medical misidentifications and grammatical errors. This is unintentional and the practitioner does try to identify and correct these, but some could still be present. Please do not hesitate to contact practitioner for clarification. All questions answered to patients satisfaction. Patient verbalized understanding of diagnosis and treatments explained. To call sooner prior to next visit it any questions/concerns arise. 01/14/2025 Morbid obesity (ICD-10 - E66.01) Luciana is a 38-year-old female who presents for weight management consult. Medical history, labs, allergies, medications, and social history reviewed with the patient. Provided education on healthy diet and lifestyle which includes high-protein, low carbohydrate, high-fiber, and a variety of fruits and vegetables. Patient encouraged to exercise with emphasis on resistance training minimum 3 times per week to maintain muscle mass and cardio to burn fat. All patient questions answered. Patient will follow-up in 4 weeks for weight management. #Morbid obesity: 12/17/2024: Weight 365.1 pounds, BMI 57.18. Patient followed with [facility] weight management program and did lose weight. For 12 months, she has been on the keto diet, and exercises daily for 30 minutes by aerobic dancing, different sports, and walking. She successfully lost 100 pounds. She did gain some weight back due to stress after her sister unexpectedly passed. She continues these lifestyle modifications, however, she has been unable to lose further weight. Discussed oral and injectable medications, her and friend are on Zepbound, patient expresses interest. Discussed side effects including nausea, constipation, reflux, muscle loss, hair thinning. Plan to submit PA today. Follow-up in 4 weeks. 01/14/2025: Weight 361.6 pounds, BMI 56.63. Congratulated on effort. She lost 4 pounds overall, fat mass decreased 6 pounds, skeletal muscle mass remained the same, visceral adipose tissue increased 1 point. Discussed protein and exercise goals. Plan to increase to Zepbound 5 mg weekly injections. Follow-up in 4 weeks. #Hypertension: BP today 140/86. Patient states at home on average her BP is 115-120 systolic. 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 Continue atenolol 25 mg daily. Continue follow-up with PCP. #Prediabetes: Patient states last year her A1c was in prediabetic range. Most recently, she states a few months ago her A1c is now in the normal range. Likely due to lifestyle modifications. Encouraged to continue lifestyle modifications as above. #Anxiety: Patient reports severe anxiety, she has trialed several different medications with no relief. Denies any thoughts of hurting self or others. Continue following with PCP. Continue imipramine 50 mg daily, and lorazepam 0.5 mg as needed. Patient encouraged to contact the office if symptoms worsen, as we can provide additional resources. Patient was reassured and welcomed to the practice. We discussed that we stress a hollistic medical approach with emphasis on lifestyle modification. Patient was informed that a healthy lifestyle with exercise and good eating habits can help reduce his risk of medical complications. Patient is explained that obesity increases his risk of diabetes, cardiovascular disease, or organ damage. We spent a lot of time discussing the relationship between food, exercise, sleep, mental health and obesity. Patient was counseled on the importance EATING local, organic food when possible. Patient was educated on clean 15 and dirty dozen. I provided information about reading books called The Food Rules by Jean Paul Dixon and Eat Fat Get Lean by Dr Tony Laura. Self education is important in the journey for weight management. Patient was offered diagnostic testing/ SECA scale. We want to measure visceral adiposity, advanced body composition, adverse lipids, fatty acid balance, risk for heart disease and atherosclerosis, markers of inflammation and genetic susceptibility. Patient was counseled on weight management and was advised to lose weight using A. Meal Replacement Products Patient was educated on the replacement products called optifast. This is a good way of taking fixed amount of calories. It has been shown in studies to be ineffective weight management tool. This however has to be coupled with lifestyle intervention as well as laboratory data and EKG monitoring. It is impossible to know how a person will tolerate complete meal replacement. The side effects of meal replacement and weight loss could include syncopal attacks, dizziness, gallstones, potential cholecystectomy, possible heart attack and even . The benefits of meal replacement would be potential weight loss but no guarantees can be made. Meal replacement products are not covered by insurance. Once the patient has bought these products we cannot return them B. Lifestyle management which includes several strategies as below 1. Eat a low carbohydrate good fat good protein diet. Eliminate refined carbohydrates from the diet. Limit sugared beverages. Eat local organic when possible. Cook your own meals. Read food labels. Focus on healthy snacks. Portion control and food with low glycemic index 2. Exercise regularly. Try to get at least 6000 steps a day. Use a predominant to track activity level. Consider using apps like 7 minute excercise, myfitbfinance UKpal, lose it, stick as needed for self-monitoring and weight management. Consider group exercises. Consider hiring a personal banking assistant. Regular exercise is arenas to sustainable health and prevents as a buffer against weight regain 3. Sleep is most important for healing. Try to sleep at least 6-8 hours a night. A good quality sleep needs a sleep ritual with ideal room temperature of around 68. It might help to take a shower and have no electronics in the room and sleep in a very dark room without artificial light. Start sleep routine and get up early in the morning and go to bed on time. 4. Make a social connection. Surround yourself with positive people with positive energy. Connect with friends and family. 5. Get into the habit of meditating and mindfulness while doing everything. 6. Go outside and connect with nature. C. Prescription medications Patient was educated on the use of prescription medications for medical weight loss. This is a growing list and includes phentermine, Topamax,Qsymia, contrave, belviq and saxenda, wegovy etc. All prescription medications could have side effects including but not limited to kidney stones, seizure disorder cardiac arrhythmias heart attack pancreatitis, GI effects, Etc. Patient was encouraged to read the prescription insert and have coaching with their pharmacist and make an informed decision about taking medication and know that these medications are being prescribed with good intentions and we do not know how a patient would react to her medication. Some medications are FDA approved for weight loss and there is also off label use depending on patient's inability to afford medications in an attempt to lose weight D. Behavioral counseling was done to establish a relationship between food and an mood. Patient was provided information about local counseling and psychiatry and Dr Wyatt at [facility]. We would like to cover regular topics and build on low glycemic eating exercise mindful eating, using yoga and meditation along with deep breathing and connecting with friends and family. E. MASS PAT reviewed, Patient's current medications were reviewed and opinion was given on medication that can cause weight gain and can be substituted F. Patient was assessed for risk with obesity including and not limiting to atherosclerosis heart disease stroke kidney disease, restrictive lung disease, irritable bowel syndrome and overall mortality. Risk of developing prediabetes diabetes and metabolic syndrome was discussed G. Therapeutic plan: We have decided to make therapeutic plan which would include choosing wisely on calories restricting portion getting active, tracking weight, getting good quality sleep and working on time management H. Patient will follow up in 4 weeks for weight management Total time spent today was 60 minutes of which greater than 50% was spent on coordinating and counseling Case discussed with collaborating physician Oksana Cullen who reviewed the assessment and plan. Chart, medications, labs, vital signs reviewed. Dictation was accomplished with the use of haku voice recognition software, prone to medical misidentifications and grammatical errors. This is unintentional and the practitioner does try to identify and correct these, but some could still be present. Please do not hesitate to contact practitioner for clarification. All questions answered to patients satisfaction. Patient verbalized understanding of diagnosis and treatments explained. To call sooner prior to next visit it any questions/concerns arise. 02/11/2025 Morbid obesity (ICD-10 - E66.01) 02/22/2025 Morbid obesity (ICD-10 - E66.01) Luciana is a 38-year-old female who presents for weight management consult. Medical history, labs, allergies, medications, and social history reviewed with the patient. Provided education on healthy diet and lifestyle which includes high-protein, low carbohydrate, high-fiber, and a variety of fruits and vegetables. Patient encouraged to exercise with emphasis on resistance training minimum 3 times per week to maintain muscle mass and cardio to burn fat. All patient questions answered. Patient will follow-up in 4 weeks for weight management. #Morbid obesity: 12/17/2024: Weight 365.1 pounds, BMI 57.18. Patient followed with [facility] weight management program and did lose weight. For 12 months, she has been on the keto diet, and exercises daily for 30 minutes by aerobic dancing, different sports, and walking. She successfully lost 100 pounds. She did gain some weight back due to stress after her sister unexpectedly passed. She continues these lifestyle modifications, however, she has been unable to lose further weight. Discussed oral and injectable medications, her and friend are on Zepbound, patient expresses interest. Discussed side effects including nausea, constipation, reflux, muscle loss, hair thinning. Plan to submit PA today. Follow-up in 4 weeks. 01/14/2025: Weight 361.6 pounds, BMI 56.63. Congratulated on effort. She lost 4 pounds overall, fat mass decreased 6 pounds, skeletal muscle mass remained the same, visceral adipose tissue increased 1 point. Discussed protein and exercise goals. Plan to increase to Zepbound 5 mg weekly injections. Follow-up in 4 weeks. 02/22/2025: Weight 344.3 pounds, BMI 53.7. Congratulated on effort. Recently started Zepbound 7.5 mg weekly injections. Continues to focus on protein, exercises at her job for 30 minutes a day. On review of body composition scan, skeletal muscle mass decreased 3.5 pounds, visceral adipose tissue decreased from 7.1-6.3, waist circumference decreased from 62 to 59.5 inches, fat mass decreased 8 pounds. Plan to continue Zepbound 7.5 mg weekly injections. Follow-up in 4 weeks. #Hypertension: BP Controlled today. Patient states at home on average her BP is 115-120 systolic. 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 Continue atenolol 25 mg daily. Continue follow-up with PCP. #Prediabetes: Patient states last year her A1c was in prediabetic range. Most recently, she states a few months ago her A1c is now in the normal range. Likely due to lifestyle modifications. Encouraged to continue lifestyle modifications as above. #Anxiety: Patient reports severe anxiety, she has trialed several different medications with no relief. Denies any thoughts of hurting self or others. Continue following with PCP. Continue imipramine 50 mg daily, and lorazepam 0.5 mg as needed. Patient encouraged to contact the office if symptoms worsen, as we can provide additional resources. Patient was reassured and welcomed to the practice. We discussed that we stress a hollistic medical approach with emphasis on lifestyle modification. Patient was informed that a healthy lifestyle with exercise and good eating habits can help reduce his risk of medical complications. Patient is explained that obesity increases his risk of diabetes, cardiovascular disease, or organ damage. We spent a lot of time discussing the relationship between food, exercise, sleep, mental health and obesity. Patient was counseled on the importance EATING local, organic food when possible. Patient was educated on clean 15 and dirty dozen. I provided information about reading books called The Food Rules by Jean Paul Dixon and Eat Fat Get Lean by Dr Tony Laura. Self education is important in the journey for weight management. Patient was offered diagnostic testing/ SECA scale. We want to measure visceral adiposity, advanced body composition, adverse lipids, fatty acid balance, risk for heart disease and atherosclerosis, markers of inflammation and genetic susceptibility. Patient was counseled on weight management and was advised to lose weight using A. Meal Replacement Products Patient was educated on the replacement products called optifast. This is a good way of taking fixed amount of calories. It has been shown in studies to be ineffective weight management tool. This however has to be coupled with lifestyle intervention as well as laboratory data and EKG monitoring. It is impossible to know how a person will tolerate complete meal replacement. The side effects of meal replacement and weight loss could include syncopal attacks, dizziness, gallstones, potential cholecystectomy, possible heart attack and even . The benefits of meal replacement would be potential weight loss but no guarantees can be made. Meal replacement products are not covered by insurance. Once the patient has bought these products we cannot return them B. Lifestyle management which includes several strategies as below 1. Eat a low carbohydrate good fat good protein diet. Eliminate refined carbohydrates from the diet. Limit sugared beverages. Eat local organic when possible. Cook your own meals. Read food labels. Focus on healthy snacks. Portion control and food with low glycemic index 2. Exercise regularly. Try to get at least 6000 steps a day. Use a predominant to track activity level. Consider using apps like 7 minute excercise, IdenIvepal, lose it, stick as needed for self-monitoring and weight management. Consider group exercises. Consider hiring a personal banking assistant. Regular exercise is arenas to sustainable health and prevents as a buffer against weight regain 3. Sleep is most important for healing. Try to sleep at least 6-8 hours a night. A good quality sleep needs a sleep ritual with ideal room temperature of around 68. It might help to take a shower and have no electronics in the room and sleep in a very dark room without artificial light. Start sleep routine and get up early in the morning and go to bed on time. 4. Make a social connection. Surround yourself with positive people with positive energy. Connect with friends and family. 5. Get into the habit of meditating and mindfulness while doing everything. 6. Go outside and connect with nature. C. Prescription medications Patient was educated on the use of prescription medications for medical weight loss. This is a growing list and includes phentermine, Topamax,Qsymia, contrave, belviq and saxenda, wegovy etc. All prescription medications could have side effects including but not limited to kidney stones, seizure disorder cardiac arrhythmias heart attack pancreatitis, GI effects, Etc. Patient was encouraged to read the prescription insert and have coaching with their pharmacist and make an informed decision about taking medication and know that these medications are being prescribed with good intentions and we do not know how a patient would react to her medication. Some medications are FDA approved for weight loss and there is also off label use depending on patient's inability to afford medications in an attempt to lose weight D. Behavioral counseling was done to establish a relationship between food and an mood. Patient was provided information about local counseling and psychiatry and Dr Wyatt at [facility]. We would like to cover regular topics and build on low glycemic eating exercise mindful eating, using yoga and meditation along with deep breathing and connecting with friends and family. E. MASS PAT reviewed, Patient's current medications were reviewed and opinion was given on medication that can cause weight gain and can be substituted F. Patient was assessed for risk with obesity including and not limiting to atherosclerosis heart disease stroke kidney disease, restrictive lung disease, irritable bowel syndrome and overall mortality. Risk of developing prediabetes diabetes and metabolic syndrome was discussed G. Therapeutic plan: We have decided to make therapeutic plan which would include choosing wisely on calories restricting portion getting active, tracking weight, getting good quality sleep and working on time management H. Patient will follow up in 4 weeks for weight management Total time spent today was 60 minutes of which greater than 50% was spent on coordinating and counseling Case discussed with collaborating physician Oksana Cullen who reviewed the assessment and plan. Chart, medications, labs, vital signs reviewed. Dictation was accomplished with the use of haku voice recognition software, prone to medical misidentifications and grammatical errors. This is unintentional and the practitioner does try to identify and correct these, but some could still be present. Please do not hesitate to contact practitioner for clarification. All questions answered to patients satisfaction. Patient verbalized understanding of diagnosis and treatments explained. To call sooner prior to next visit it any questions/concerns arise. 02/22/2025 BMI 50.0-59.9, adult (ICD-10 - Z68.43) Luciana is a 38-year-old female who presents for weight management consult. Medical history, labs, allergies, medications, and social history reviewed with the patient. Provided education on healthy diet and lifestyle which includes high-protein, low carbohydrate, high-fiber, and a variety of fruits and vegetables. Patient encouraged to exercise with emphasis on resistance training minimum 3 times per week to maintain muscle mass and cardio to burn fat. All patient questions answered. Patient will follow-up in 4 weeks for weight management. #Morbid obesity: 12/17/2024: Weight 365.1 pounds, BMI 57.18. Patient followed with [facility] weight management program and did lose weight. For 12 months, she has been on the keto diet, and exercises daily for 30 minutes by aerobic dancing, different sports, and walking. She successfully lost 100 pounds. She did gain some weight back due to stress after her sister unexpectedly passed. She continues these lifestyle modifications, however, she has been unable to lose further weight. Discussed oral and injectable medications, her and friend are on Zepbound, patient expresses interest. Discussed side effects including nausea, constipation, reflux, muscle loss, hair thinning. Plan to submit PA today. Follow-up in 4 weeks. 01/14/2025: Weight 361.6 pounds, BMI 56.63. Congratulated on effort. She lost 4 pounds overall, fat mass decreased 6 pounds, skeletal muscle mass remained the same, visceral adipose tissue increased 1 point. Discussed protein and exercise goals. Plan to increase to Zepbound 5 mg weekly injections. Follow-up in 4 weeks. 02/22/2025: Weight 344.3 pounds, BMI 53.7. Congratulated on effort. Recently started Zepbound 7.5 mg weekly injections. Continues to focus on protein, exercises at her job for 30 minutes a day. On review of body composition scan, skeletal muscle mass decreased 3.5 pounds, visceral adipose tissue decreased from 7.1-6.3, waist circumference decreased from 62 to 59.5 inches, fat mass decreased 8 pounds. Plan to continue Zepbound 7.5 mg weekly injections. Follow-up in 4 weeks. #Hypertension: BP Controlled today. Patient states at home on average her BP is 115-120 systolic. 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 Continue atenolol 25 mg daily. Continue follow-up with PCP. #Prediabetes: Patient states last year her A1c was in prediabetic range. Most recently, she states a few months ago her A1c is now in the normal range. Likely due to lifestyle modifications. Encouraged to continue lifestyle modifications as above. #Anxiety: Patient reports severe anxiety, she has trialed several different medications with no relief. Denies any thoughts of hurting self or others. Continue following with PCP. Continue imipramine 50 mg daily, and lorazepam 0.5 mg as needed. Patient encouraged to contact the office if symptoms worsen, as we can provide additional resources. Patient was reassured and welcomed to the practice. We discussed that we stress a hollistic medical approach with emphasis on lifestyle modification. Patient was informed that a healthy lifestyle with exercise and good eating habits can help reduce his risk of medical complications. Patient is explained that obesity increases his risk of diabetes, cardiovascular disease, or organ damage. We spent a lot of time discussing the relationship between food, exercise, sleep, mental health and obesity. Patient was counseled on the importance EATING local, organic food when possible. Patient was educated on clean 15 and dirty dozen. I provided information about reading books called The Food Rules by Jean Paul Dixon and Eat Fat Get Lean by Dr Tony Laura. Self education is important in the journey for weight management. Patient was offered diagnostic testing/ SECA scale. We want to measure visceral adiposity, advanced body composition, adverse lipids, fatty acid balance, risk for heart disease and atherosclerosis, markers of inflammation and genetic susceptibility. Patient was counseled on weight management and was advised to lose weight using A. Meal Replacement Products Patient was educated on the replacement products called optifast. This is a good way of taking fixed amount of calories. It has been shown in studies to be ineffective weight management tool. This however has to be coupled with lifestyle intervention as well as laboratory data and EKG monitoring. It is impossible to know how a person will tolerate complete meal replacement. The side effects of meal replacement and weight loss could include syncopal attacks, dizziness, gallstones, potential cholecystectomy, possible heart attack and even . The benefits of meal replacement would be potential weight loss but no guarantees can be made. Meal replacement products are not covered by insurance. Once the patient has bought these products we cannot return them B. Lifestyle management which includes several strategies as below 1. Eat a low carbohydrate good fat good protein diet. Eliminate refined carbohydrates from the diet. Limit sugared beverages. Eat local organic when possible. Cook your own meals. Read food labels. Focus on healthy snacks. Portion control and food with low glycemic index 2. Exercise regularly. Try to get at least 6000 steps a day. Use a predominant to track activity level. Consider using apps like 7 minute excercise, myfitnesspal, lose it, stick as needed for self-monitoring and weight management. Consider group exercises. Consider hiring a personal banking assistant. Regular exercise is arenas to sustainable health and prevents as a buffer against weight regain 3. Sleep is most important for healing. Try to sleep at least 6-8 hours a night. A good quality sleep needs a sleep ritual with ideal room temperature of around 68. It might help to take a shower and have no electronics in the room and sleep in a very dark room without artificial light. Start sleep routine and get up early in the morning and go to bed on time. 4. Make a social connection. Surround yourself with positive people with positive energy. Connect with friends and family. 5. Get into the habit of meditating and mindfulness while doing everything. 6. Go outside and connect with nature. C. Prescription medications Patient was educated on the use of prescription medications for medical weight loss. This is a growing list and includes phentermine, Topamax,Qsymia, contrave, belviq and saxenda, wegovy etc. All prescription medications could have side effects including but not limited to kidney stones, seizure disorder cardiac arrhythmias heart attack pancreatitis, GI effects, Etc. Patient was encouraged to read the prescription insert and have coaching with their pharmacist and make an informed decision about taking medication and know that these medications are being prescribed with good intentions and we do not know how a patient would react to her medication. Some medications are FDA approved for weight loss and there is also off label use depending on patient's inability to afford medications in an attempt to lose weight D. Behavioral counseling was done to establish a relationship between food and an mood. Patient was provided information about local counseling and psychiatry and Dr Wyatt at [facility]. We would like to cover regular topics and build on low glycemic eating exercise mindful eating, using yoga and meditation along with deep breathing and connecting with friends and family. E. MASS PAT reviewed, Patient's current medications were reviewed and opinion was given on medication that can cause weight gain and can be substituted F. Patient was assessed for risk with obesity including and not limiting to atherosclerosis heart disease stroke kidney disease, restrictive lung disease, irritable bowel syndrome and overall mortality. Risk of developing prediabetes diabetes and metabolic syndrome was discussed G. Therapeutic plan: We have decided to make therapeutic plan which would include choosing wisely on calories restricting portion getting active, tracking weight, getting good quality sleep and working on time management H. Patient will follow up in 4 weeks for weight management Total time spent today was 60 minutes of which greater than 50% was spent on coordinating and counseling Case discussed with collaborating physician Oksana Cullen who reviewed the assessment and plan. Chart, medications, labs, vital signs reviewed. Dictation was accomplished with the use of haku voice recognition software, prone to medical misidentifications and grammatical errors. This is unintentional and the practitioner does try to identify and correct these, but some could still be present. Please do not hesitate to contact practitioner for clarification. All questions answered to patients satisfaction. Patient verbalized understanding of diagnosis and treatments explained. To call sooner prior to next visit it any questions/concerns arise. 01/14/2025 BMI 50.0-59.9, adult (ICD-10 - Z68.43) Luciana is a 38-year-old female who presents for weight management consult. Medical history, labs, allergies, medications, and social history reviewed with the patient. Provided education on healthy diet and lifestyle which includes high-protein, low carbohydrate, high-fiber, and a variety of fruits and vegetables. Patient encouraged to exercise with emphasis on resistance training minimum 3 times per week to maintain muscle mass and cardio to burn fat. All patient questions answered. Patient will follow-up in 4 weeks for weight management. #Morbid obesity: 12/17/2024: Weight 365.1 pounds, BMI 57.18. Patient followed with [facility] weight management program and did lose weight. For 12 months, she has been on the keto diet, and exercises daily for 30 minutes by aerobic dancing, different sports, and walking. She successfully lost 100 pounds. She did gain some weight back due to stress after her sister unexpectedly passed. She continues these lifestyle modifications, however, she has been unable to lose further weight. Discussed oral and injectable medications, her and friend are on Zepbound, patient expresses interest. Discussed side effects including nausea, constipation, reflux, muscle loss, hair thinning. Plan to submit PA today. Follow-up in 4 weeks. 01/14/2025: Weight 361.6 pounds, BMI 56.63. Congratulated on effort. She lost 4 pounds overall, fat mass decreased 6 pounds, skeletal muscle mass remained the same, visceral adipose tissue increased 1 point. Discussed protein and exercise goals. Plan to increase to Zepbound 5 mg weekly injections. Follow-up in 4 weeks. #Hypertension: BP today 140/86. Patient states at home on average her BP is 115-120 systolic. 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 Continue atenolol 25 mg daily. Continue follow-up with PCP. #Prediabetes: Patient states last year her A1c was in prediabetic range. Most recently, she states a few months ago her A1c is now in the normal range. Likely due to lifestyle modifications. Encouraged to continue lifestyle modifications as above. #Anxiety: Patient reports severe anxiety, she has trialed several different medications with no relief. Denies any thoughts of hurting self or others. Continue following with PCP. Continue imipramine 50 mg daily, and lorazepam 0.5 mg as needed. Patient encouraged to contact the office if symptoms worsen, as we can provide additional resources. Patient was reassured and welcomed to the practice. We discussed that we stress a hollistic medical approach with emphasis on lifestyle modification. Patient was informed that a healthy lifestyle with exercise and good eating habits can help reduce his risk of medical complications. Patient is explained that obesity increases his risk of diabetes, cardiovascular disease, or organ damage. We spent a lot of time discussing the relationship between food, exercise, sleep, mental health and obesity. Patient was counseled on the importance EATING local, organic food when possible. Patient was educated on clean 15 and dirty dozen. I provided information about reading books called The Food Rules by Jean Paul Dixon and Eat Fat Get Lean by Dr Tony Laura. Self education is important in the journey for weight management. Patient was offered diagnostic testing/ SECA scale. We want to measure visceral adiposity, advanced body composition, adverse lipids, fatty acid balance, risk for heart disease and atherosclerosis, markers of inflammation and genetic susceptibility. Patient was counseled on weight management and was advised to lose weight using A. Meal Replacement Products Patient was educated on the replacement products called optifast. This is a good way of taking fixed amount of calories. It has been shown in studies to be ineffective weight management tool. This however has to be coupled with lifestyle intervention as well as laboratory data and EKG monitoring. It is impossible to know how a person will tolerate complete meal replacement. The side effects of meal replacement and weight loss could include syncopal attacks, dizziness, gallstones, potential cholecystectomy, possible heart attack and even . The benefits of meal replacement would be potential weight loss but no guarantees can be made. Meal replacement products are not covered by insurance. Once the patient has bought these products we cannot return them B. Lifestyle management which includes several strategies as below 1. Eat a low carbohydrate good fat good protein diet. Eliminate refined carbohydrates from the diet. Limit sugared beverages. Eat local organic when possible. Cook your own meals. Read food labels. Focus on healthy snacks. Portion control and food with low glycemic index 2. Exercise regularly. Try to get at least 6000 steps a day. Use a predominant to track activity level. Consider using apps like 7 minute excercise, myThe Daily Voicepal, lose it, stick as needed for self-monitoring and weight management. Consider group exercises. Consider hiring a personal banking assistant. Regular exercise is arenas to sustainable health and prevents as a buffer against weight regain 3. Sleep is most important for healing. Try to sleep at least 6-8 hours a night. A good quality sleep needs a sleep ritual with ideal room temperature of around 68. It might help to take a shower and have no electronics in the room and sleep in a very dark room without artificial light. Start sleep routine and get up early in the morning and go to bed on time. 4. Make a social connection. Surround yourself with positive people with positive energy. Connect with friends and family. 5. Get into the habit of meditating and mindfulness while doing everything. 6. Go outside and connect with nature. C. Prescription medications Patient was educated on the use of prescription medications for medical weight loss. This is a growing list and includes phentermine, Topamax,Qsymia, contrave, belviq and saxenda, wegovy etc. All prescription medications could have side effects including but not limited to kidney stones, seizure disorder cardiac arrhythmias heart attack pancreatitis, GI effects, Etc. Patient was encouraged to read the prescription insert and have coaching with their pharmacist and make an informed decision about taking medication and know that these medications are being prescribed with good intentions and we do not know how a patient would react to her medication. Some medications are FDA approved for weight loss and there is also off label use depending on patient's inability to afford medications in an attempt to lose weight D. Behavioral counseling was done to establish a relationship between food and an mood. Patient was provided information about local counseling and psychiatry and Dr Wyatt at [facility]. We would like to cover regular topics and build on low glycemic eating exercise mindful eating, using yoga and meditation along with deep breathing and connecting with friends and family. E. MASS PAT reviewed, Patient's current medications were reviewed and opinion was given on medication that can cause weight gain and can be substituted F. Patient was assessed for risk with obesity including and not limiting to atherosclerosis heart disease stroke kidney disease, restrictive lung disease, irritable bowel syndrome and overall mortality. Risk of developing prediabetes diabetes and metabolic syndrome was discussed G. Therapeutic plan: We have decided to make therapeutic plan which would include choosing wisely on calories restricting portion getting active, tracking weight, getting good quality sleep and working on time management H. Patient will follow up in 4 weeks for weight management Total time spent today was 60 minutes of which greater than 50% was spent on coordinating and counseling Case discussed with collaborating physician Oksana Cullen who reviewed the assessment and plan. Chart, medications, labs, vital signs reviewed. Dictation was accomplished with the use of haku voice recognition software, prone to medical misidentifications and grammatical errors. This is unintentional and the practitioner does try to identify and correct these, but some could still be present. Please do not hesitate to contact practitioner for clarification. All questions answered to patients satisfaction. Patient verbalized understanding of diagnosis and treatments explained. To call sooner prior to next visit it any questions/concerns arise. 12/17/2024 Essential hypertension (ICD-10 - I10) Luciana is a 38-year-old female who presents for weight management consult. Medical history, labs, allergies, medications, and social history reviewed with the patient. Provided education on healthy diet and lifestyle which includes high-protein, low carbohydrate, high-fiber, and a variety of fruits and vegetables. Patient encouraged to exercise with emphasis on resistance training minimum 3 times per week to maintain muscle mass and cardio to burn fat. All patient questions answered. Patient will follow-up in 4 weeks for weight management. #Morbid obesity: 12/17/2024: Weight 365.1 pounds, BMI 57.18. Patient followed with [facility] weight management program and did lose weight. For 12 months, she has been on the keto diet, and exercises daily for 30 minutes by aerobic dancing, different sports, and walking. She successfully lost 100 pounds. She did gain some weight back due to stress after her sister unexpectedly passed. She continues these lifestyle modifications, however, she has been unable to lose further weight. Discussed oral and injectable medications, her and friend are on Zepbound, patient expresses interest. Discussed side effects including nausea, constipation, reflux, muscle loss, hair thinning. Plan to submit PA today. Follow-up in 4 weeks. #Hypertension: BP today elevated 142/86, repeat 154/92. Patient states she has severe anxiety and her blood pressure is usually elevated in offices. She does have a BP monitoring cuff at home, but infrequently measures. Patient advised to measure BP at home 1-2 times per day. Continue atenolol 25 mg daily. Continue follow-up with PCP. #Prediabetes: Patient states last year her A1c was in prediabetic range. Most recently, she states a few months ago her A1c is now in the normal range. Likely due to lifestyle modifications. Encouraged to continue lifestyle modifications as above. #Anxiety: Patient reports severe anxiety, she has trialed several different medications with no relief. Denies any thoughts of hurting self or others. Continue following with PCP. Continue imipramine 50 mg daily, and lorazepam 0.5 mg as needed. Patient encouraged to contact the office if symptoms worsen, as we can provide additional resources. Patient was reassured and welcomed to the practice. We discussed that we stress a hollistic medical approach with emphasis on lifestyle modification. Patient was informed that a healthy lifestyle with exercise and good eating habits can help reduce his risk of medical complications. Patient is explained that obesity increases his risk of diabetes, cardiovascular disease, or organ damage. We spent a lot of time discussing the relationship between food, exercise, sleep, mental health and obesity. Patient was counseled on the importance EATING local, organic food when possible. Patient was educated on clean 15 and dirty dozen. I provided information about reading books called The Food Rules by Jean Paul Dixon and Eat Fat Get Lean by Dr Tony Laura. Self education is important in the journey for weight management. Patient was offered diagnostic testing/ SECA scale. We want to measure visceral adiposity, advanced body composition, adverse lipids, fatty acid balance, risk for heart disease and atherosclerosis, markers of inflammation and genetic susceptibility. Patient was counseled on weight management and was advised to lose weight using A. Meal Replacement Products Patient was educated on the replacement products called optifast. This is a good way of taking fixed amount of calories. It has been shown in studies to be ineffective weight management tool. This however has to be coupled with lifestyle intervention as well as laboratory data and EKG monitoring. It is impossible to know how a person will tolerate complete meal replacement. The side effects of meal replacement and weight loss could include syncopal attacks, dizziness, gallstones, potential cholecystectomy, possible heart attack and even . The benefits of meal replacement would be potential weight loss but no guarantees can be made. Meal replacement products are not covered by insurance. Once the patient has bought these products we cannot return them B. Lifestyle management which includes several strategies as below 1. Eat a low carbohydrate good fat good protein diet. Eliminate refined carbohydrates from the diet. Limit sugared beverages. Eat local organic when possible. Cook your own meals. Read food labels. Focus on healthy snacks. Portion control and food with low glycemic index 2. Exercise regularly. Try to get at least 6000 steps a day. Use a predominant to track activity level. Consider using apps like 7 minute excercise, IdenIvepal, lose it, stick as needed for self-monitoring and weight management. Consider group exercises. Consider hiring a personal banking assistant. Regular exercise is arenas to sustainable health and prevents as a buffer against weight regain 3. Sleep is most important for healing. Try to sleep at least 6-8 hours a night. A good quality sleep needs a sleep ritual with ideal room temperature of around 68. It might help to take a shower and have no electronics in the room and sleep in a very dark room without artificial light. Start sleep routine and get up early in the morning and go to bed on time. 4. Make a social connection. Surround yourself with positive people with positive energy. Connect with friends and family. 5. Get into the habit of meditating and mindfulness while doing everything. 6. Go outside and connect with nature. C. Prescription medications Patient was educated on the use of prescription medications for medical weight loss. This is a growing list and includes phentermine, Topamax,Qsymia, contrave, belviq and saxenda, wegovy etc. All prescription medications could have side effects including but not limited to kidney stones, seizure disorder cardiac arrhythmias heart attack pancreatitis, GI effects, Etc. Patient was encouraged to read the prescription insert and have coaching with their pharmacist and make an informed decision about taking medication and know that these medications are being prescribed with good intentions and we do not know how a patient would react to her medication. Some medications are FDA approved for weight loss and there is also off label use depending on patient's inability to afford medications in an attempt to lose weight D. Behavioral counseling was done to establish a relationship between food and an mood. Patient was provided information about local counseling and psychiatry and Dr Wyatt at [facility]. We would like to cover regular topics and build on low glycemic eating exercise mindful eating, using yoga and meditation along with deep breathing and connecting with friends and family. E. MASS PAT reviewed, Patient's current medications were reviewed and opinion was given on medication that can cause weight gain and can be substituted F. Patient was assessed for risk with obesity including and not limiting to atherosclerosis heart disease stroke kidney disease, restrictive lung disease, irritable bowel syndrome and overall mortality. Risk of developing prediabetes diabetes and metabolic syndrome was discussed G. Therapeutic plan: We have decided to make therapeutic plan which would include choosing wisely on calories restricting portion getting active, tracking weight, getting good quality sleep and working on time management H. Patient will follow up in 4 weeks for weight management Total time spent today was 60 minutes of which greater than 50% was spent on coordinating and counseling Case discussed with collaborating physician Oksana Cullen who reviewed the assessment and plan. Chart, medications, labs, vital signs reviewed. Dictation was accomplished with the use of haku voice recognition software, prone to medical misidentifications and grammatical errors. This is unintentional and the practitioner does try to identify and correct these, but some could still be present. Please do not hesitate to contact practitioner for clarification. All questions answered to patients satisfaction. Patient verbalized understanding of diagnosis and treatments explained. To call sooner prior to next visit it any questions/concerns arise. 02/22/2025 Essential hypertension (ICD-10 - I10) Luciana is a 38-year-old female who presents for weight management consult. Medical history, labs, allergies, medications, and social history reviewed with the patient. Provided education on healthy diet and lifestyle which includes high-protein, low carbohydrate, high-fiber, and a variety of fruits and vegetables. Patient encouraged to exercise with emphasis on resistance training minimum 3 times per week to maintain muscle mass and cardio to burn fat. All patient questions answered. Patient will follow-up in 4 weeks for weight management. #Morbid obesity: 12/17/2024: Weight 365.1 pounds, BMI 57.18. Patient followed with [facility] weight management program and did lose weight. For 12 months, she has been on the keto diet, and exercises daily for 30 minutes by aerobic dancing, different sports, and walking. She successfully lost 100 pounds. She did gain some weight back due to stress after her sister unexpectedly passed. She continues these lifestyle modifications, however, she has been unable to lose further weight. Discussed oral and injectable medications, her and friend are on Zepbound, patient expresses interest. Discussed side effects including nausea, constipation, reflux, muscle loss, hair thinning. Plan to submit PA today. Follow-up in 4 weeks. 01/14/2025: Weight 361.6 pounds, BMI 56.63. Congratulated on effort. She lost 4 pounds overall, fat mass decreased 6 pounds, skeletal muscle mass remained the same, visceral adipose tissue increased 1 point. Discussed protein and exercise goals. Plan to increase to Zepbound 5 mg weekly injections. Follow-up in 4 weeks. 02/22/2025: Weight 344.3 pounds, BMI 53.7. Congratulated on effort. Recently started Zepbound 7.5 mg weekly injections. Continues to focus on protein, exercises at her job for 30 minutes a day. On review of body composition scan, skeletal muscle mass decreased 3.5 pounds, visceral adipose tissue decreased from 7.1-6.3, waist circumference decreased from 62 to 59.5 inches, fat mass decreased 8 pounds. Plan to continue Zepbound 7.5 mg weekly injections. Follow-up in 4 weeks. #Hypertension: BP Controlled today. Patient states at home on average her BP is 115-120 systolic. 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 Continue atenolol 25 mg daily. Continue follow-up with PCP. #Prediabetes: Patient states last year her A1c was in prediabetic range. Most recently, she states a few months ago her A1c is now in the normal range. Likely due to lifestyle modifications. Encouraged to continue lifestyle modifications as above. #Anxiety: Patient reports severe anxiety, she has trialed several different medications with no relief. Denies any thoughts of hurting self or others. Continue following with PCP. Continue imipramine 50 mg daily, and lorazepam 0.5 mg as needed. Patient encouraged to contact the office if symptoms worsen, as we can provide additional resources. Patient was reassured and welcomed to the practice. We discussed that we stress a hollistic medical approach with emphasis on lifestyle modification. Patient was informed that a healthy lifestyle with exercise and good eating habits can help reduce his risk of medical complications. Patient is explained that obesity increases his risk of diabetes, cardiovascular disease, or organ damage. We spent a lot of time discussing the relationship between food, exercise, sleep, mental health and obesity. Patient was counseled on the importance EATING local, organic food when possible. Patient was educated on clean 15 and dirty dozen. I provided information about reading books called The Food Rules by Jean Paul Dixon and Eat Fat Get Lean by Dr Tony Laura. Self education is important in the journey for weight management. Patient was offered diagnostic testing/ SECA scale. We want to measure visceral adiposity, advanced body composition, adverse lipids, fatty acid balance, risk for heart disease and atherosclerosis, markers of inflammation and genetic susceptibility. Patient was counseled on weight management and was advised to lose weight using A. Meal Replacement Products Patient was educated on the replacement products called optifast. This is a good way of taking fixed amount of calories. It has been shown in studies to be ineffective weight management tool. This however has to be coupled with lifestyle intervention as well as laboratory data and EKG monitoring. It is impossible to know how a person will tolerate complete meal replacement. The side effects of meal replacement and weight loss could include syncopal attacks, dizziness, gallstones, potential cholecystectomy, possible heart attack and even . The benefits of meal replacement would be potential weight loss but no guarantees can be made. Meal replacement products are not covered by insurance. Once the patient has bought these products we cannot return them B. Lifestyle management which includes several strategies as below 1. Eat a low carbohydrate good fat good protein diet. Eliminate refined carbohydrates from the diet. Limit sugared beverages. Eat local organic when possible. Cook your own meals. Read food labels. Focus on healthy snacks. Portion control and food with low glycemic index 2. Exercise regularly. Try to get at least 6000 steps a day. Use a predominant to track activity level. Consider using apps like 7 minute excercise, myfitnesspal, lose it, stick as needed for self-monitoring and weight management. Consider group exercises. Consider hiring a personal banking assistant. Regular exercise is arenas to sustainable health and prevents as a buffer against weight regain 3. Sleep is most important for healing. Try to sleep at least 6-8 hours a night. A good quality sleep needs a sleep ritual with ideal room temperature of around 68. It might help to take a shower and have no electronics in the room and sleep in a very dark room without artificial light. Start sleep routine and get up early in the morning and go to bed on time. 4. Make a social connection. Surround yourself with positive people with positive energy. Connect with friends and family. 5. Get into the habit of meditating and mindfulness while doing everything. 6. Go outside and connect with nature. C. Prescription medications Patient was educated on the use of prescription medications for medical weight loss. This is a growing list and includes phentermine, Topamax,Qsymia, contrave, belviq and saxenda, wegovy etc. All prescription medications could have side effects including but not limited to kidney stones, seizure disorder cardiac arrhythmias heart attack pancreatitis, GI effects, Etc. Patient was encouraged to read the prescription insert and have coaching with their pharmacist and make an informed decision about taking medication and know that these medications are being prescribed with good intentions and we do not know how a patient would react to her medication. Some medications are FDA approved for weight loss and there is also off label use depending on patient's inability to afford medications in an attempt to lose weight D. Behavioral counseling was done to establish a relationship between food and an mood. Patient was provided information about local counseling and psychiatry and Dr Wyatt at [facility]. We would like to cover regular topics and build on low glycemic eating exercise mindful eating, using yoga and meditation along with deep breathing and connecting with friends and family. E. MASS PAT reviewed, Patient's current medications were reviewed and opinion was given on medication that can cause weight gain and can be substituted F. Patient was assessed for risk with obesity including and not limiting to atherosclerosis heart disease stroke kidney disease, restrictive lung disease, irritable bowel syndrome and overall mortality. Risk of developing prediabetes diabetes and metabolic syndrome was discussed G. Therapeutic plan: We have decided to make therapeutic plan which would include choosing wisely on calories restricting portion getting active, tracking weight, getting good quality sleep and working on time management H. Patient will follow up in 4 weeks for weight management Total time spent today was 60 minutes of which greater than 50% was spent on coordinating and counseling Case discussed with collaborating physician Oksana Cullen who reviewed the assessment and plan. Chart, medications, labs, vital signs reviewed. Dictation was accomplished with the use of haku voice recognition software, prone to medical misidentifications and grammatical errors. This is unintentional and the practitioner does try to identify and correct these, but some could still be present. Please do not hesitate to contact practitioner for clarification. All questions answered to patients satisfaction. Patient verbalized understanding of diagnosis and treatments explained. To call sooner prior to next visit it any questions/concerns arise. 12/17/2024 Prediabetes (ICD-10 - R73.03) Luciana is a 38-year-old female who presents for weight management consult. Medical history, labs, allergies, medications, and social history reviewed with the patient. Provided education on healthy diet and lifestyle which includes high-protein, low carbohydrate, high-fiber, and a variety of fruits and vegetables. Patient encouraged to exercise with emphasis on resistance training minimum 3 times per week to maintain muscle mass and cardio to burn fat. All patient questions answered. Patient will follow-up in 4 weeks for weight management. #Morbid obesity: 12/17/2024: Weight 365.1 pounds, BMI 57.18. Patient followed with [facility] weight management program and did lose weight. For 12 months, she has been on the keto diet, and exercises daily for 30 minutes by aerobic dancing, different sports, and walking. She successfully lost 100 pounds. She did gain some weight back due to stress after her sister unexpectedly passed. She continues these lifestyle modifications, however, she has been unable to lose further weight. Discussed oral and injectable medications, her and friend are on Zepbound, patient expresses interest. Discussed side effects including nausea, constipation, reflux, muscle loss, hair thinning. Plan to submit PA today. Follow-up in 4 weeks. #Hypertension: BP today elevated 142/86, repeat 154/92. Patient states she has severe anxiety and her blood pressure is usually elevated in offices. She does have a BP monitoring cuff at home, but infrequently measures. Patient advised to measure BP at home 1-2 times per day. Continue atenolol 25 mg daily. Continue follow-up with PCP. #Prediabetes: Patient states last year her A1c was in prediabetic range. Most recently, she states a few months ago her A1c is now in the normal range. Likely due to lifestyle modifications. Encouraged to continue lifestyle modifications as above. #Anxiety: Patient reports severe anxiety, she has trialed several different medications with no relief. Denies any thoughts of hurting self or others. Continue following with PCP. Continue imipramine 50 mg daily, and lorazepam 0.5 mg as needed. Patient encouraged to contact the office if symptoms worsen, as we can provide additional resources. Patient was reassured and welcomed to the practice. We discussed that we stress a hollistic medical approach with emphasis on lifestyle modification. Patient was informed that a healthy lifestyle with exercise and good eating habits can help reduce his risk of medical complications. Patient is explained that obesity increases his risk of diabetes, cardiovascular disease, or organ damage. We spent a lot of time discussing the relationship between food, exercise, sleep, mental health and obesity. Patient was counseled on the importance EATING local, organic food when possible. Patient was educated on clean 15 and dirty dozen. I provided information about reading books called The Food Rules by Jean Paul Dixon and Eat Fat Get Lean by Dr Tony Laura. Self education is important in the journey for weight management. Patient was offered diagnostic testing/ SECA scale. We want to measure visceral adiposity, advanced body composition, adverse lipids, fatty acid balance, risk for heart disease and atherosclerosis, markers of inflammation and genetic susceptibility. Patient was counseled on weight management and was advised to lose weight using A. Meal Replacement Products Patient was educated on the replacement products called optifast. This is a good way of taking fixed amount of calories. It has been shown in studies to be ineffective weight management tool. This however has to be coupled with lifestyle intervention as well as laboratory data and EKG monitoring. It is impossible to know how a person will tolerate complete meal replacement. The side effects of meal replacement and weight loss could include syncopal attacks, dizziness, gallstones, potential cholecystectomy, possible heart attack and even . The benefits of meal replacement would be potential weight loss but no guarantees can be made. Meal replacement products are not covered by insurance. Once the patient has bought these products we cannot return them B. Lifestyle management which includes several strategies as below 1. Eat a low carbohydrate good fat good protein diet. Eliminate refined carbohydrates from the diet. Limit sugared beverages. Eat local organic when possible. Cook your own meals. Read food labels. Focus on healthy snacks. Portion control and food with low glycemic index 2. Exercise regularly. Try to get at least 6000 steps a day. Use a predominant to track activity level. Consider using apps like 7 minute excercise, myThe Daily Voicepal, lose it, stick as needed for self-monitoring and weight management. Consider group exercises. Consider hiring a personal banking assistant. Regular exercise is arenas to sustainable health and prevents as a buffer against weight regain 3. Sleep is most important for healing. Try to sleep at least 6-8 hours a night. A good quality sleep needs a sleep ritual with ideal room temperature of around 68. It might help to take a shower and have no electronics in the room and sleep in a very dark room without artificial light. Start sleep routine and get up early in the morning and go to bed on time. 4. Make a social connection. Surround yourself with positive people with positive energy. Connect with friends and family. 5. Get into the habit of meditating and mindfulness while doing everything. 6. Go outside and connect with nature. C. Prescription medications Patient was educated on the use of prescription medications for medical weight loss. This is a growing list and includes phentermine, Topamax,Qsymia, contrave, belviq and saxenda, wegovy etc. All prescription medications could have side effects including but not limited to kidney stones, seizure disorder cardiac arrhythmias heart attack pancreatitis, GI effects, Etc. Patient was encouraged to read the prescription insert and have coaching with their pharmacist and make an informed decision about taking medication and know that these medications are being prescribed with good intentions and we do not know how a patient would react to her medication. Some medications are FDA approved for weight loss and there is also off label use depending on patient's inability to afford medications in an attempt to lose weight D. Behavioral counseling was done to establish a relationship between food and an mood. Patient was provided information about local counseling and psychiatry and Dr Wyatt at [facility]. We would like to cover regular topics and build on low glycemic eating exercise mindful eating, using yoga and meditation along with deep breathing and connecting with friends and family. E. MASS PAT reviewed, Patient's current medications were reviewed and opinion was given on medication that can cause weight gain and can be substituted F. Patient was assessed for risk with obesity including and not limiting to atherosclerosis heart disease stroke kidney disease, restrictive lung disease, irritable bowel syndrome and overall mortality. Risk of developing prediabetes diabetes and metabolic syndrome was discussed G. Therapeutic plan: We have decided to make therapeutic plan which would include choosing wisely on calories restricting portion getting active, tracking weight, getting good quality sleep and working on time management H. Patient will follow up in 4 weeks for weight management Total time spent today was 60 minutes of which greater than 50% was spent on coordinating and counseling Case discussed with collaborating physician Oksana Cullen who reviewed the assessment and plan. Chart, medications, labs, vital signs reviewed. Dictation was accomplished with the use of Dragon voice recognition software, prone to medical misidentifications and grammatical errors. This is unintentional and the practitioner does try to identify and correct these, but some could still be present. Please do not hesitate to contact practitioner for clarification. All questions answered to patients satisfaction. Patient verbalized understanding of diagnosis and treatments explained. To call sooner prior to next visit it any questions/concerns arise. 01/14/2025 Essential hypertension (ICD-10 - I10) Luciana is a 38-year-old female who presents for weight management consult. Medical history, labs, allergies, medications, and social history reviewed with the patient. Provided education on healthy diet and lifestyle which includes high-protein, low carbohydrate, high-fiber, and a variety of fruits and vegetables. Patient encouraged to exercise with emphasis on resistance training minimum 3 times per week to maintain muscle mass and cardio to burn fat. All patient questions answered. Patient will follow-up in 4 weeks for weight management. #Morbid obesity: 12/17/2024: Weight 365.1 pounds, BMI 57.18. Patient followed with [facility] weight management program and did lose weight. For 12 months, she has been on the keto diet, and exercises daily for 30 minutes by aerobic dancing, different sports, and walking. She successfully lost 100 pounds. She did gain some weight back due to stress after her sister unexpectedly passed. She continues these lifestyle modifications, however, she has been unable to lose further weight. Discussed oral and injectable medications, her and friend are on Zepbound, patient expresses interest. Discussed side effects including nausea, constipation, reflux, muscle loss, hair thinning. Plan to submit PA today. Follow-up in 4 weeks. 01/14/2025: Weight 361.6 pounds, BMI 56.63. Congratulated on effort. She lost 4 pounds overall, fat mass decreased 6 pounds, skeletal muscle mass remained the same, visceral adipose tissue increased 1 point. Discussed protein and exercise goals. Plan to increase to Zepbound 5 mg weekly injections. Follow-up in 4 weeks. #Hypertension: BP today 140/86. Patient states at home on average her BP is 115-120 systolic. 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 Continue atenolol 25 mg daily. Continue follow-up with PCP. #Prediabetes: Patient states last year her A1c was in prediabetic range. Most recently, she states a few months ago her A1c is now in the normal range. Likely due to lifestyle modifications. Encouraged to continue lifestyle modifications as above. #Anxiety: Patient reports severe anxiety, she has trialed several different medications with no relief. Denies any thoughts of hurting self or others. Continue following with PCP. Continue imipramine 50 mg daily, and lorazepam 0.5 mg as needed. Patient encouraged to contact the office if symptoms worsen, as we can provide additional resources. Patient was reassured and welcomed to the practice. We discussed that we stress a hollistic medical approach with emphasis on lifestyle modification. Patient was informed that a healthy lifestyle with exercise and good eating habits can help reduce his risk of medical complications. Patient is explained that obesity increases his risk of diabetes, cardiovascular disease, or organ damage. We spent a lot of time discussing the relationship between food, exercise, sleep, mental health and obesity. Patient was counseled on the importance EATING local, organic food when possible. Patient was educated on clean 15 and dirty dozen. I provided information about reading books called The Food Rules by Jean Paul Dixon and Eat Fat Get Lean by Dr Tony Laura. Self education is important in the journey for weight management. Patient was offered diagnostic testing/ SECA scale. We want to measure visceral adiposity, advanced body composition, adverse lipids, fatty acid balance, risk for heart disease and atherosclerosis, markers of inflammation and genetic susceptibility. Patient was counseled on weight management and was advised to lose weight using A. Meal Replacement Products Patient was educated on the replacement products called optifast. This is a good way of taking fixed amount of calories. It has been shown in studies to be ineffective weight management tool. This however has to be coupled with lifestyle intervention as well as laboratory data and EKG monitoring. It is impossible to know how a person will tolerate complete meal replacement. The side effects of meal replacement and weight loss could include syncopal attacks, dizziness, gallstones, potential cholecystectomy, possible heart attack and even . The benefits of meal replacement would be potential weight loss but no guarantees can be made. Meal replacement products are not covered by insurance. Once the patient has bought these products we cannot return them B. Lifestyle management which includes several strategies as below 1. Eat a low carbohydrate good fat good protein diet. Eliminate refined carbohydrates from the diet. Limit sugared beverages. Eat local organic when possible. Cook your own meals. Read food labels. Focus on healthy snacks. Portion control and food with low glycemic index 2. Exercise regularly. Try to get at least 6000 steps a day. Use a predominant to track activity level. Consider using apps like 7 minute excercise, IdenIvepal, lose it, stick as needed for self-monitoring and weight management. Consider group exercises. Consider hiring a personal banking assistant. Regular exercise is arenas to sustainable health and prevents as a buffer against weight regain 3. Sleep is most important for healing. Try to sleep at least 6-8 hours a night. A good quality sleep needs a sleep ritual with ideal room temperature of around 68. It might help to take a shower and have no electronics in the room and sleep in a very dark room without artificial light. Start sleep routine and get up early in the morning and go to bed on time. 4. Make a social connection. Surround yourself with positive people with positive energy. Connect with friends and family. 5. Get into the habit of meditating and mindfulness while doing everything. 6. Go outside and connect with nature. C. Prescription medications Patient was educated on the use of prescription medications for medical weight loss. This is a growing list and includes phentermine, Topamax,Qsymia, contrave, belviq and saxenda, wegovy etc. All prescription medications could have side effects including but not limited to kidney stones, seizure disorder cardiac arrhythmias heart attack pancreatitis, GI effects, Etc. Patient was encouraged to read the prescription insert and have coaching with their pharmacist and make an informed decision about taking medication and know that these medications are being prescribed with good intentions and we do not know how a patient would react to her medication. Some medications are FDA approved for weight loss and there is also off label use depending on patient's inability to afford medications in an attempt to lose weight D. Behavioral counseling was done to establish a relationship between food and an mood. Patient was provided information about local counseling and psychiatry and Dr Wyatt at [facility]. We would like to cover regular topics and build on low glycemic eating exercise mindful eating, using yoga and meditation along with deep breathing and connecting with friends and family. E. MASS PAT reviewed, Patient's current medications were reviewed and opinion was given on medication that can cause weight gain and can be substituted F. Patient was assessed for risk with obesity including and not limiting to atherosclerosis heart disease stroke kidney disease, restrictive lung disease, irritable bowel syndrome and overall mortality. Risk of developing prediabetes diabetes and metabolic syndrome was discussed G. Therapeutic plan: We have decided to make therapeutic plan which would include choosing wisely on calories restricting portion getting active, tracking weight, getting good quality sleep and working on time management H. Patient will follow up in 4 weeks for weight management Total time spent today was 60 minutes of which greater than 50% was spent on coordinating and counseling Case discussed with collaborating physician Oksana Cullen who reviewed the assessment and plan. Chart, medications, labs, vital signs reviewed. Dictation was accomplished with the use of haku voice recognition software, prone to medical misidentifications and grammatical errors. This is unintentional and the practitioner does try to identify and correct these, but some could still be present. Please do not hesitate to contact practitioner for clarification. All questions answered to patients satisfaction. Patient verbalized understanding of diagnosis and treatments explained. To call sooner prior to next visit it any questions/concerns arise. 02/22/2025 Prediabetes (ICD-10 - R73.03) Luciana is a 38-year-old female who presents for weight management consult. Medical history, labs, allergies, medications, and social history reviewed with the patient. Provided education on healthy diet and lifestyle which includes high-protein, low carbohydrate, high-fiber, and a variety of fruits and vegetables. Patient encouraged to exercise with emphasis on resistance training minimum 3 times per week to maintain muscle mass and cardio to burn fat. All patient questions answered. Patient will follow-up in 4 weeks for weight management. #Morbid obesity: 12/17/2024: Weight 365.1 pounds, BMI 57.18. Patient followed with [facility] weight management program and did lose weight. For 12 months, she has been on the keto diet, and exercises daily for 30 minutes by aerobic dancing, different sports, and walking. She successfully lost 100 pounds. She did gain some weight back due to stress after her sister unexpectedly passed. She continues these lifestyle modifications, however, she has been unable to lose further weight. Discussed oral and injectable medications, her and friend are on Zepbound, patient expresses interest. Discussed side effects including nausea, constipation, reflux, muscle loss, hair thinning. Plan to submit PA today. Follow-up in 4 weeks. 01/14/2025: Weight 361.6 pounds, BMI 56.63. Congratulated on effort. She lost 4 pounds overall, fat mass decreased 6 pounds, skeletal muscle mass remained the same, visceral adipose tissue increased 1 point. Discussed protein and exercise goals. Plan to increase to Zepbound 5 mg weekly injections. Follow-up in 4 weeks. 02/22/2025: Weight 344.3 pounds, BMI 53.7. Congratulated on effort. Recently started Zepbound 7.5 mg weekly injections. Continues to focus on protein, exercises at her job for 30 minutes a day. On review of body composition scan, skeletal muscle mass decreased 3.5 pounds, visceral adipose tissue decreased from 7.1-6.3, waist circumference decreased from 62 to 59.5 inches, fat mass decreased 8 pounds. Plan to continue Zepbound 7.5 mg weekly injections. Follow-up in 4 weeks. #Hypertension: BP Controlled today. Patient states at home on average her BP is 115-120 systolic. 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 Continue atenolol 25 mg daily. Continue follow-up with PCP. #Prediabetes: Patient states last year her A1c was in prediabetic range. Most recently, she states a few months ago her A1c is now in the normal range. Likely due to lifestyle modifications. Encouraged to continue lifestyle modifications as above. #Anxiety: Patient reports severe anxiety, she has trialed several different medications with no relief. Denies any thoughts of hurting self or others. Continue following with PCP. Continue imipramine 50 mg daily, and lorazepam 0.5 mg as needed. Patient encouraged to contact the office if symptoms worsen, as we can provide additional resources. Patient was reassured and welcomed to the practice. We discussed that we stress a hollistic medical approach with emphasis on lifestyle modification. Patient was informed that a healthy lifestyle with exercise and good eating habits can help reduce his risk of medical complications. Patient is explained that obesity increases his risk of diabetes, cardiovascular disease, or organ damage. We spent a lot of time discussing the relationship between food, exercise, sleep, mental health and obesity. Patient was counseled on the importance EATING local, organic food when possible. Patient was educated on clean 15 and dirty dozen. I provided information about reading books called The Food Rules by Jean Paul Dixon and Eat Fat Get Lean by Dr Tony Laura. Self education is important in the journey for weight management. Patient was offered diagnostic testing/ SECA scale. We want to measure visceral adiposity, advanced body composition, adverse lipids, fatty acid balance, risk for heart disease and atherosclerosis, markers of inflammation and genetic susceptibility. Patient was counseled on weight management and was advised to lose weight using A. Meal Replacement Products Patient was educated on the replacement products called optifast. This is a good way of taking fixed amount of calories. It has been shown in studies to be ineffective weight management tool. This however has to be coupled with lifestyle intervention as well as laboratory data and EKG monitoring. It is impossible to know how a person will tolerate complete meal replacement. The side effects of meal replacement and weight loss could include syncopal attacks, dizziness, gallstones, potential cholecystectomy, possible heart attack and even . The benefits of meal replacement would be potential weight loss but no guarantees can be made. Meal replacement products are not covered by insurance. Once the patient has bought these products we cannot return them B. Lifestyle management which includes several strategies as below 1. Eat a low carbohydrate good fat good protein diet. Eliminate refined carbohydrates from the diet. Limit sugared beverages. Eat local organic when possible. Cook your own meals. Read food labels. Focus on healthy snacks. Portion control and food with low glycemic index 2. Exercise regularly. Try to get at least 6000 steps a day. Use a predominant to track activity level. Consider using apps like 7 minute excercise, myfitnesspal, lose it, stick as needed for self-monitoring and weight management. Consider group exercises. Consider hiring a personal banking assistant. Regular exercise is arenas to sustainable health and prevents as a buffer against weight regain 3. Sleep is most important for healing. Try to sleep at least 6-8 hours a night. A good quality sleep needs a sleep ritual with ideal room temperature of around 68. It might help to take a shower and have no electronics in the room and sleep in a very dark room without artificial light. Start sleep routine and get up early in the morning and go to bed on time. 4. Make a social connection. Surround yourself with positive people with positive energy. Connect with friends and family. 5. Get into the habit of meditating and mindfulness while doing everything. 6. Go outside and connect with nature. C. Prescription medications Patient was educated on the use of prescription medications for medical weight loss. This is a growing list and includes phentermine, Topamax,Qsymia, contrave, belviq and saxenda, wegovy etc. All prescription medications could have side effects including but not limited to kidney stones, seizure disorder cardiac arrhythmias heart attack pancreatitis, GI effects, Etc. Patient was encouraged to read the prescription insert and have coaching with their pharmacist and make an informed decision about taking medication and know that these medications are being prescribed with good intentions and we do not know how a patient would react to her medication. Some medications are FDA approved for weight loss and there is also off label use depending on patient's inability to afford medications in an attempt to lose weight D. Behavioral counseling was done to establish a relationship between food and an mood. Patient was provided information about local counseling and psychiatry and Dr Wyatt at [facility]. We would like to cover regular topics and build on low glycemic eating exercise mindful eating, using yoga and meditation along with deep breathing and connecting with friends and family. E. MASS PAT reviewed, Patient's current medications were reviewed and opinion was given on medication that can cause weight gain and can be substituted F. Patient was assessed for risk with obesity including and not limiting to atherosclerosis heart disease stroke kidney disease, restrictive lung disease, irritable bowel syndrome and overall mortality. Risk of developing prediabetes diabetes and metabolic syndrome was discussed G. Therapeutic plan: We have decided to make therapeutic plan which would include choosing wisely on calories restricting portion getting active, tracking weight, getting good quality sleep and working on time management H. Patient will follow up in 4 weeks for weight management Total time spent today was 60 minutes of which greater than 50% was spent on coordinating and counseling Case discussed with collaborating physician Oksana Cullen who reviewed the assessment and plan. Chart, medications, labs, vital signs reviewed. Dictation was accomplished with the use of haku voice recognition software, prone to medical misidentifications and grammatical errors. This is unintentional and the practitioner does try to identify and correct these, but some could still be present. Please do not hesitate to contact practitioner for clarification. All questions answered to patients satisfaction. Patient verbalized understanding of diagnosis and treatments explained. To call sooner prior to next visit it any questions/concerns arise. 02/22/2025 Anxiety, generalized (ICD-10 - F41.1) Luciana is a 38-year-old female who presents for weight management consult. Medical history, labs, allergies, medications, and social history reviewed with the patient. Provided education on healthy diet and lifestyle which includes high-protein, low carbohydrate, high-fiber, and a variety of fruits and vegetables. Patient encouraged to exercise with emphasis on resistance training minimum 3 times per week to maintain muscle mass and cardio to burn fat. All patient questions answered. Patient will follow-up in 4 weeks for weight management. #Morbid obesity: 12/17/2024: Weight 365.1 pounds, BMI 57.18. Patient followed with [facility] weight management program and did lose weight. For 12 months, she has been on the keto diet, and exercises daily for 30 minutes by aerobic dancing, different sports, and walking. She successfully lost 100 pounds. She did gain some weight back due to stress after her sister unexpectedly passed. She continues these lifestyle modifications, however, she has been unable to lose further weight. Discussed oral and injectable medications, her and friend are on Zepbound, patient expresses interest. Discussed side effects including nausea, constipation, reflux, muscle loss, hair thinning. Plan to submit PA today. Follow-up in 4 weeks. 01/14/2025: Weight 361.6 pounds, BMI 56.63. Congratulated on effort. She lost 4 pounds overall, fat mass decreased 6 pounds, skeletal muscle mass remained the same, visceral adipose tissue increased 1 point. Discussed protein and exercise goals. Plan to increase to Zepbound 5 mg weekly injections. Follow-up in 4 weeks. 02/22/2025: Weight 344.3 pounds, BMI 53.7. Congratulated on effort. Recently started Zepbound 7.5 mg weekly injections. Continues to focus on protein, exercises at her job for 30 minutes a day. On review of body composition scan, skeletal muscle mass decreased 3.5 pounds, visceral adipose tissue decreased from 7.1-6.3, waist circumference decreased from 62 to 59.5 inches, fat mass decreased 8 pounds. Plan to continue Zepbound 7.5 mg weekly injections. Follow-up in 4 weeks. #Hypertension: BP Controlled today. Patient states at home on average her BP is 115-120 systolic. 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 Continue atenolol 25 mg daily. Continue follow-up with PCP. #Prediabetes: Patient states last year her A1c was in prediabetic range. Most recently, she states a few months ago her A1c is now in the normal range. Likely due to lifestyle modifications. Encouraged to continue lifestyle modifications as above. #Anxiety: Patient reports severe anxiety, she has trialed several different medications with no relief. Denies any thoughts of hurting self or others. Continue following with PCP. Continue imipramine 50 mg daily, and lorazepam 0.5 mg as needed. Patient encouraged to contact the office if symptoms worsen, as we can provide additional resources. Patient was reassured and welcomed to the practice. We discussed that we stress a hollistic medical approach with emphasis on lifestyle modification. Patient was informed that a healthy lifestyle with exercise and good eating habits can help reduce his risk of medical complications. Patient is explained that obesity increases his risk of diabetes, cardiovascular disease, or organ damage. We spent a lot of time discussing the relationship between food, exercise, sleep, mental health and obesity. Patient was counseled on the importance EATING local, organic food when possible. Patient was educated on clean 15 and dirty dozen. I provided information about reading books called The Food Rules by Jean Paul Dixon and Eat Fat Get Lean by Dr Tony Laura. Self education is important in the journey for weight management. Patient was offered diagnostic testing/ SECA scale. We want to measure visceral adiposity, advanced body composition, adverse lipids, fatty acid balance, risk for heart disease and atherosclerosis, markers of inflammation and genetic susceptibility. Patient was counseled on weight management and was advised to lose weight using A. Meal Replacement Products Patient was educated on the replacement products called optifast. This is a good way of taking fixed amount of calories. It has been shown in studies to be ineffective weight management tool. This however has to be coupled with lifestyle intervention as well as laboratory data and EKG monitoring. It is impossible to know how a person will tolerate complete meal replacement. The side effects of meal replacement and weight loss could include syncopal attacks, dizziness, gallstones, potential cholecystectomy, possible heart attack and even . The benefits of meal replacement would be potential weight loss but no guarantees can be made. Meal replacement products are not covered by insurance. Once the patient has bought these products we cannot return them B. Lifestyle management which includes several strategies as below 1. Eat a low carbohydrate good fat good protein diet. Eliminate refined carbohydrates from the diet. Limit sugared beverages. Eat local organic when possible. Cook your own meals. Read food labels. Focus on healthy snacks. Portion control and food with low glycemic index 2. Exercise regularly. Try to get at least 6000 steps a day. Use a predominant to track activity level. Consider using apps like 7 minute excercise, IdenIvepal, lose it, stick as needed for self-monitoring and weight management. Consider group exercises. Consider hiring a personal banking assistant. Regular exercise is arenas to sustainable health and prevents as a buffer against weight regain 3. Sleep is most important for healing. Try to sleep at least 6-8 hours a night. A good quality sleep needs a sleep ritual with ideal room temperature of around 68. It might help to take a shower and have no electronics in the room and sleep in a very dark room without artificial light. Start sleep routine and get up early in the morning and go to bed on time. 4. Make a social connection. Surround yourself with positive people with positive energy. Connect with friends and family. 5. Get into the habit of meditating and mindfulness while doing everything. 6. Go outside and connect with nature. C. Prescription medications Patient was educated on the use of prescription medications for medical weight loss. This is a growing list and includes phentermine, Topamax,Qsymia, contrave, belviq and saxenda, wegovy etc. All prescription medications could have side effects including but not limited to kidney stones, seizure disorder cardiac arrhythmias heart attack pancreatitis, GI effects, Etc. Patient was encouraged to read the prescription insert and have coaching with their pharmacist and make an informed decision about taking medication and know that these medications are being prescribed with good intentions and we do not know how a patient would react to her medication. Some medications are FDA approved for weight loss and there is also off label use depending on patient's inability to afford medications in an attempt to lose weight D. Behavioral counseling was done to establish a relationship between food and an mood. Patient was provided information about local counseling and psychiatry and Dr Wyatt at [facility]. We would like to cover regular topics and build on low glycemic eating exercise mindful eating, using yoga and meditation along with deep breathing and connecting with friends and family. E. MASS PAT reviewed, Patient's current medications were reviewed and opinion was given on medication that can cause weight gain and can be substituted F. Patient was assessed for risk with obesity including and not limiting to atherosclerosis heart disease stroke kidney disease, restrictive lung disease, irritable bowel syndrome and overall mortality. Risk of developing prediabetes diabetes and metabolic syndrome was discussed G. Therapeutic plan: We have decided to make therapeutic plan which would include choosing wisely on calories restricting portion getting active, tracking weight, getting good quality sleep and working on time management H. Patient will follow up in 4 weeks for weight management Total time spent today was 60 minutes of which greater than 50% was spent on coordinating and counseling Case discussed with collaborating physician Oksana Cullen who reviewed the assessment and plan. Chart, medications, labs, vital signs reviewed. Dictation was accomplished with the use of haku voice recognition software, prone to medical misidentifications and grammatical errors. This is unintentional and the practitioner does try to identify and correct these, but some could still be present. Please do not hesitate to contact practitioner for clarification. All questions answered to patients satisfaction. Patient verbalized understanding of diagnosis and treatments explained. To call sooner prior to next visit it any questions/concerns arise. 01/14/2025 Prediabetes (ICD-10 - R73.03) Luciana is a 38-year-old female who presents for weight management consult. Medical history, labs, allergies, medications, and social history reviewed with the patient. Provided education on healthy diet and lifestyle which includes high-protein, low carbohydrate, high-fiber, and a variety of fruits and vegetables. Patient encouraged to exercise with emphasis on resistance training minimum 3 times per week to maintain muscle mass and cardio to burn fat. All patient questions answered. Patient will follow-up in 4 weeks for weight management. #Morbid obesity: 12/17/2024: Weight 365.1 pounds, BMI 57.18. Patient followed with [facility] weight management program and did lose weight. For 12 months, she has been on the keto diet, and exercises daily for 30 minutes by aerobic dancing, different sports, and walking. She successfully lost 100 pounds. She did gain some weight back due to stress after her sister unexpectedly passed. She continues these lifestyle modifications, however, she has been unable to lose further weight. Discussed oral and injectable medications, her and friend are on Zepbound, patient expresses interest. Discussed side effects including nausea, constipation, reflux, muscle loss, hair thinning. Plan to submit PA today. Follow-up in 4 weeks. 01/14/2025: Weight 361.6 pounds, BMI 56.63. Congratulated on effort. She lost 4 pounds overall, fat mass decreased 6 pounds, skeletal muscle mass remained the same, visceral adipose tissue increased 1 point. Discussed protein and exercise goals. Plan to increase to Zepbound 5 mg weekly injections. Follow-up in 4 weeks. #Hypertension: BP today 140/86. Patient states at home on average her BP is 115-120 systolic. 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 Continue atenolol 25 mg daily. Continue follow-up with PCP. #Prediabetes: Patient states last year her A1c was in prediabetic range. Most recently, she states a few months ago her A1c is now in the normal range. Likely due to lifestyle modifications. Encouraged to continue lifestyle modifications as above. #Anxiety: Patient reports severe anxiety, she has trialed several different medications with no relief. Denies any thoughts of hurting self or others. Continue following with PCP. Continue imipramine 50 mg daily, and lorazepam 0.5 mg as needed. Patient encouraged to contact the office if symptoms worsen, as we can provide additional resources. Patient was reassured and welcomed to the practice. We discussed that we stress a hollistic medical approach with emphasis on lifestyle modification. Patient was informed that a healthy lifestyle with exercise and good eating habits can help reduce his risk of medical complications. Patient is explained that obesity increases his risk of diabetes, cardiovascular disease, or organ damage. We spent a lot of time discussing the relationship between food, exercise, sleep, mental health and obesity. Patient was counseled on the importance EATING local, organic food when possible. Patient was educated on clean 15 and dirty dozen. I provided information about reading books called The Food Rules by Jean Paul Dixon and Eat Fat Get Lean by Dr Tony Laura. Self education is important in the journey for weight management. Patient was offered diagnostic testing/ SECA scale. We want to measure visceral adiposity, advanced body composition, adverse lipids, fatty acid balance, risk for heart disease and atherosclerosis, markers of inflammation and genetic susceptibility. Patient was counseled on weight management and was advised to lose weight using A. Meal Replacement Products Patient was educated on the replacement products called optifast. This is a good way of taking fixed amount of calories. It has been shown in studies to be ineffective weight management tool. This however has to be coupled with lifestyle intervention as well as laboratory data and EKG monitoring. It is impossible to know how a person will tolerate complete meal replacement. The side effects of meal replacement and weight loss could include syncopal attacks, dizziness, gallstones, potential cholecystectomy, possible heart attack and even . The benefits of meal replacement would be potential weight loss but no guarantees can be made. Meal replacement products are not covered by insurance. Once the patient has bought these products we cannot return them B. Lifestyle management which includes several strategies as below 1. Eat a low carbohydrate good fat good protein diet. Eliminate refined carbohydrates from the diet. Limit sugared beverages. Eat local organic when possible. Cook your own meals. Read food labels. Focus on healthy snacks. Portion control and food with low glycemic index 2. Exercise regularly. Try to get at least 6000 steps a day. Use a predominant to track activity level. Consider using apps like 7 minute excercise, IdenIvepal, lose it, stick as needed for self-monitoring and weight management. Consider group exercises. Consider hiring a personal banking assistant. Regular exercise is arenas to sustainable health and prevents as a buffer against weight regain 3. Sleep is most important for healing. Try to sleep at least 6-8 hours a night. A good quality sleep needs a sleep ritual with ideal room temperature of around 68. It might help to take a shower and have no electronics in the room and sleep in a very dark room without artificial light. Start sleep routine and get up early in the morning and go to bed on time. 4. Make a social connection. Surround yourself with positive people with positive energy. Connect with friends and family. 5. Get into the habit of meditating and mindfulness while doing everything. 6. Go outside and connect with nature. C. Prescription medications Patient was educated on the use of prescription medications for medical weight loss. This is a growing list and includes phentermine, Topamax,Qsymia, contrave, belviq and saxenda, wegovy etc. All prescription medications could have side effects including but not limited to kidney stones, seizure disorder cardiac arrhythmias heart attack pancreatitis, GI effects, Etc. Patient was encouraged to read the prescription insert and have coaching with their pharmacist and make an informed decision about taking medication and know that these medications are being prescribed with good intentions and we do not know how a patient would react to her medication. Some medications are FDA approved for weight loss and there is also off label use depending on patient's inability to afford medications in an attempt to lose weight D. Behavioral counseling was done to establish a relationship between food and an mood. Patient was provided information about local counseling and psychiatry and Dr Wyatt at [facility]. We would like to cover regular topics and build on low glycemic eating exercise mindful eating, using yoga and meditation along with deep breathing and connecting with friends and family. E. MASS PAT reviewed, Patient's current medications were reviewed and opinion was given on medication that can cause weight gain and can be substituted F. Patient was assessed for risk with obesity including and not limiting to atherosclerosis heart disease stroke kidney disease, restrictive lung disease, irritable bowel syndrome and overall mortality. Risk of developing prediabetes diabetes and metabolic syndrome was discussed G. Therapeutic plan: We have decided to make therapeutic plan which would include choosing wisely on calories restricting portion getting active, tracking weight, getting good quality sleep and working on time management H. Patient will follow up in 4 weeks for weight management Total time spent today was 60 minutes of which greater than 50% was spent on coordinating and counseling Case discussed with collaborating physician Oksana Cullen who reviewed the assessment and plan. Chart, medications, labs, vital signs reviewed. Dictation was accomplished with the use of haku voice recognition software, prone to medical misidentifications and grammatical errors. This is unintentional and the practitioner does try to identify and correct these, but some could still be present. Please do not hesitate to contact practitioner for clarification. All questions answered to patients satisfaction. Patient verbalized understanding of diagnosis and treatments explained. To call sooner prior to next visit it any questions/concerns arise. 12/17/2024 Anxiety, generalized (ICD-10 - F41.1) Luciana is a 38-year-old female who presents for weight management consult. Medical history, labs, allergies, medications, and social history reviewed with the patient. Provided education on healthy diet and lifestyle which includes high-protein, low carbohydrate, high-fiber, and a variety of fruits and vegetables. Patient encouraged to exercise with emphasis on resistance training minimum 3 times per week to maintain muscle mass and cardio to burn fat. All patient questions answered. Patient will follow-up in 4 weeks for weight management. #Morbid obesity: 12/17/2024: Weight 365.1 pounds, BMI 57.18. Patient followed with [facility] weight management program and did lose weight. For 12 months, she has been on the keto diet, and exercises daily for 30 minutes by aerobic dancing, different sports, and walking. She successfully lost 100 pounds. She did gain some weight back due to stress after her sister unexpectedly passed. She continues these lifestyle modifications, however, she has been unable to lose further weight. Discussed oral and injectable medications, her and friend are on Zepbound, patient expresses interest. Discussed side effects including nausea, constipation, reflux, muscle loss, hair thinning. Plan to submit PA today. Follow-up in 4 weeks. #Hypertension: BP today elevated 142/86, repeat 154/92. Patient states she has severe anxiety and her blood pressure is usually elevated in offices. She does have a BP monitoring cuff at home, but infrequently measures. Patient advised to measure BP at home 1-2 times per day. Continue atenolol 25 mg daily. Continue follow-up with PCP. #Prediabetes: Patient states last year her A1c was in prediabetic range. Most recently, she states a few months ago her A1c is now in the normal range. Likely due to lifestyle modifications. Encouraged to continue lifestyle modifications as above. #Anxiety: Patient reports severe anxiety, she has trialed several different medications with no relief. Denies any thoughts of hurting self or others. Continue following with PCP. Continue imipramine 50 mg daily, and lorazepam 0.5 mg as needed. Patient encouraged to contact the office if symptoms worsen, as we can provide additional resources. Patient was reassured and welcomed to the practice. We discussed that we stress a hollistic medical approach with emphasis on lifestyle modification. Patient was informed that a healthy lifestyle with exercise and good eating habits can help reduce his risk of medical complications. Patient is explained that obesity increases his risk of diabetes, cardiovascular disease, or organ damage. We spent a lot of time discussing the relationship between food, exercise, sleep, mental health and obesity. Patient was counseled on the importance EATING local, organic food when possible. Patient was educated on clean 15 and dirty dozen. I provided information about reading books called The Food Rules by Jean Paul Dixon and Eat Fat Get Lean by Dr Tony Laura. Self education is important in the journey for weight management. Patient was offered diagnostic testing/ SECA scale. We want to measure visceral adiposity, advanced body composition, adverse lipids, fatty acid balance, risk for heart disease and atherosclerosis, markers of inflammation and genetic susceptibility. Patient was counseled on weight management and was advised to lose weight using A. Meal Replacement Products Patient was educated on the replacement products called optifast. This is a good way of taking fixed amount of calories. It has been shown in studies to be ineffective weight management tool. This however has to be coupled with lifestyle intervention as well as laboratory data and EKG monitoring. It is impossible to know how a person will tolerate complete meal replacement. The side effects of meal replacement and weight loss could include syncopal attacks, dizziness, gallstones, potential cholecystectomy, possible heart attack and even . The benefits of meal replacement would be potential weight loss but no guarantees can be made. Meal replacement products are not covered by insurance. Once the patient has bought these products we cannot return them B. Lifestyle management which includes several strategies as below 1. Eat a low carbohydrate good fat good protein diet. Eliminate refined carbohydrates from the diet. Limit sugared beverages. Eat local organic when possible. Cook your own meals. Read food labels. Focus on healthy snacks. Portion control and food with low glycemic index 2. Exercise regularly. Try to get at least 6000 steps a day. Use a predominant to track activity level. Consider using apps like 7 minute excercise, myfitnesspal, lose it, stick as needed for self-monitoring and weight management. Consider group exercises. Consider hiring a personal banking assistant. Regular exercise is arenas to sustainable health and prevents as a buffer against weight regain 3. Sleep is most important for healing. Try to sleep at least 6-8 hours a night. A good quality sleep needs a sleep ritual with ideal room temperature of around 68. It might help to take a shower and have no electronics in the room and sleep in a very dark room without artificial light. Start sleep routine and get up early in the morning and go to bed on time. 4. Make a social connection. Surround yourself with positive people with positive energy. Connect with friends and family. 5. Get into the habit of meditating and mindfulness while doing everything. 6. Go outside and connect with nature. C. Prescription medications Patient was educated on the use of prescription medications for medical weight loss. This is a growing list and includes phentermine, Topamax,Qsymia, contrave, belviq and saxenda, wegovy etc. All prescription medications could have side effects including but not limited to kidney stones, seizure disorder cardiac arrhythmias heart attack pancreatitis, GI effects, Etc. Patient was encouraged to read the prescription insert and have coaching with their pharmacist and make an informed decision about taking medication and know that these medications are being prescribed with good intentions and we do not know how a patient would react to her medication. Some medications are FDA approved for weight loss and there is also off label use depending on patient's inability to afford medications in an attempt to lose weight D. Behavioral counseling was done to establish a relationship between food and an mood. Patient was provided information about local counseling and psychiatry and Dr Wyatt at [facility]. We would like to cover regular topics and build on low glycemic eating exercise mindful eating, using yoga and meditation along with deep breathing and connecting with friends and family. E. MASS PAT reviewed, Patient's current medications were reviewed and opinion was given on medication that can cause weight gain and can be substituted F. Patient was assessed for risk with obesity including and not limiting to atherosclerosis heart disease stroke kidney disease, restrictive lung disease, irritable bowel syndrome and overall mortality. Risk of developing prediabetes diabetes and metabolic syndrome was discussed G. Therapeutic plan: We have decided to make therapeutic plan which would include choosing wisely on calories restricting portion getting active, tracking weight, getting good quality sleep and working on time management H. Patient will follow up in 4 weeks for weight management Total time spent today was 60 minutes of which greater than 50% was spent on coordinating and counseling Case discussed with collaborating physician Oksana Cullen who reviewed the assessment and plan. Chart, medications, labs, vital signs reviewed. Dictation was accomplished with the use of haku voice recognition software, prone to medical misidentifications and grammatical errors. This is unintentional and the practitioner does try to identify and correct these, but some could still be present. Please do not hesitate to contact practitioner for clarification. All questions answered to patients satisfaction. Patient verbalized understanding of diagnosis and treatments explained. To call sooner prior to next visit it any questions/concerns arise. 12/17/2024 Encounter for examination of blood pressure with abnormal findings (ICD-10 - Z01.31) Luciana is a 38-year-old female who presents for weight management consult. Medical history, labs, allergies, medications, and social history reviewed with the patient. Provided education on healthy diet and lifestyle which includes high-protein, low carbohydrate, high-fiber, and a variety of fruits and vegetables. Patient encouraged to exercise with emphasis on resistance training minimum 3 times per week to maintain muscle mass and cardio to burn fat. All patient questions answered. Patient will follow-up in 4 weeks for weight management. #Morbid obesity: 12/17/2024: Weight 365.1 pounds, BMI 57.18. Patient followed with [facility] weight management program and did lose weight. For 12 months, she has been on the keto diet, and exercises daily for 30 minutes by aerobic dancing, different sports, and walking. She successfully lost 100 pounds. She did gain some weight back due to stress after her sister unexpectedly passed. She continues these lifestyle modifications, however, she has been unable to lose further weight. Discussed oral and injectable medications, her and friend are on Zepbound, patient expresses interest. Discussed side effects including nausea, constipation, reflux, muscle loss, hair thinning. Plan to submit PA today. Follow-up in 4 weeks. #Hypertension: BP today elevated 142/86, repeat 154/92. Patient states she has severe anxiety and her blood pressure is usually elevated in offices. She does have a BP monitoring cuff at home, but infrequently measures. Patient advised to measure BP at home 1-2 times per day. Continue atenolol 25 mg daily. Continue follow-up with PCP. #Prediabetes: Patient states last year her A1c was in prediabetic range. Most recently, she states a few months ago her A1c is now in the normal range. Likely due to lifestyle modifications. Encouraged to continue lifestyle modifications as above. #Anxiety: Patient reports severe anxiety, she has trialed several different medications with no relief. Denies any thoughts of hurting self or others. Continue following with PCP. Continue imipramine 50 mg daily, and lorazepam 0.5 mg as needed. Patient encouraged to contact the office if symptoms worsen, as we can provide additional resources. Patient was reassured and welcomed to the practice. We discussed that we stress a hollistic medical approach with emphasis on lifestyle modification. Patient was informed that a healthy lifestyle with exercise and good eating habits can help reduce his risk of medical complications. Patient is explained that obesity increases his risk of diabetes, cardiovascular disease, or organ damage. We spent a lot of time discussing the relationship between food, exercise, sleep, mental health and obesity. Patient was counseled on the importance EATING local, organic food when possible. Patient was educated on clean 15 and dirty dozen. I provided information about reading books called The Food Rules by Jean Paul Dixon and Eat Fat Get Lean by Dr Tony Laura. Self education is important in the journey for weight management. Patient was offered diagnostic testing/ SECA scale. We want to measure visceral adiposity, advanced body composition, adverse lipids, fatty acid balance, risk for heart disease and atherosclerosis, markers of inflammation and genetic susceptibility. Patient was counseled on weight management and was advised to lose weight using A. Meal Replacement Products Patient was educated on the replacement products called optifast. This is a good way of taking fixed amount of calories. It has been shown in studies to be ineffective weight management tool. This however has to be coupled with lifestyle intervention as well as laboratory data and EKG monitoring. It is impossible to know how a person will tolerate complete meal replacement. The side effects of meal replacement and weight loss could include syncopal attacks, dizziness, gallstones, potential cholecystectomy, possible heart attack and even . The benefits of meal replacement would be potential weight loss but no guarantees can be made. Meal replacement products are not covered by insurance. Once the patient has bought these products we cannot return them B. Lifestyle management which includes several strategies as below 1. Eat a low carbohydrate good fat good protein diet. Eliminate refined carbohydrates from the diet. Limit sugared beverages. Eat local organic when possible. Cook your own meals. Read food labels. Focus on healthy snacks. Portion control and food with low glycemic index 2. Exercise regularly. Try to get at least 6000 steps a day. Use a predominant to track activity level. Consider using apps like 7 minute excercise, myTistagamesnesspal, lose it, stick as needed for self-monitoring and weight management. Consider group exercises. Consider hiring a personal banking assistant. Regular exercise is arenas to sustainable health and prevents as a buffer against weight regain 3. Sleep is most important for healing. Try to sleep at least 6-8 hours a night. A good quality sleep needs a sleep ritual with ideal room temperature of around 68. It might help to take a shower and have no electronics in the room and sleep in a very dark room without artificial light. Start sleep routine and get up early in the morning and go to bed on time. 4. Make a social connection. Surround yourself with positive people with positive energy. Connect with friends and family. 5. Get into the habit of meditating and mindfulness while doing everything. 6. Go outside and connect with nature. C. Prescription medications Patient was educated on the use of prescription medications for medical weight loss. This is a growing list and includes phentermine, Topamax,Qsymia, contrave, belviq and saxenda, wegovy etc. All prescription medications could have side effects including but not limited to kidney stones, seizure disorder cardiac arrhythmias heart attack pancreatitis, GI effects, Etc. Patient was encouraged to read the prescription insert and have coaching with their pharmacist and make an informed decision about taking medication and know that these medications are being prescribed with good intentions and we do not know how a patient would react to her medication. Some medications are FDA approved for weight loss and there is also off label use depending on patient's inability to afford medications in an attempt to lose weight D. Behavioral counseling was done to establish a relationship between food and an mood. Patient was provided information about local counseling and psychiatry and Dr Wyatt at [facility]. We would like to cover regular topics and build on low glycemic eating exercise mindful eating, using yoga and meditation along with deep breathing and connecting with friends and family. E. MASS PAT reviewed, Patient's current medications were reviewed and opinion was given on medication that can cause weight gain and can be substituted F. Patient was assessed for risk with obesity including and not limiting to atherosclerosis heart disease stroke kidney disease, restrictive lung disease, irritable bowel syndrome and overall mortality. Risk of developing prediabetes diabetes and metabolic syndrome was discussed G. Therapeutic plan: We have decided to make therapeutic plan which would include choosing wisely on calories restricting portion getting active, tracking weight, getting good quality sleep and working on time management H. Patient will follow up in 4 weeks for weight management Total time spent today was 60 minutes of which greater than 50% was spent on coordinating and counseling Case discussed with collaborating physician Oksana Cullen who reviewed the assessment and plan. Chart, medications, labs, vital signs reviewed. Dictation was accomplished with the use of haku voice recognition software, prone to medical misidentifications and grammatical errors. This is unintentional and the practitioner does try to identify and correct these, but some could still be present. Please do not hesitate to contact practitioner for clarification. All questions answered to patients satisfaction. Patient verbalized understanding of diagnosis and treatments explained. To call sooner prior to next visit it any questions/concerns arise. 01/14/2025 Anxiety, generalized (ICD-10 - F41.1) Luciana is a 38-year-old female who presents for weight management consult. Medical history, labs, allergies, medications, and social history reviewed with the patient. Provided education on healthy diet and lifestyle which includes high-protein, low carbohydrate, high-fiber, and a variety of fruits and vegetables. Patient encouraged to exercise with emphasis on resistance training minimum 3 times per week to maintain muscle mass and cardio to burn fat. All patient questions answered. Patient will follow-up in 4 weeks for weight management. #Morbid obesity: 12/17/2024: Weight 365.1 pounds, BMI 57.18. Patient followed with [facility] weight management program and did lose weight. For 12 months, she has been on the keto diet, and exercises daily for 30 minutes by aerobic dancing, different sports, and walking. She successfully lost 100 pounds. She did gain some weight back due to stress after her sister unexpectedly passed. She continues these lifestyle modifications, however, she has been unable to lose further weight. Discussed oral and injectable medications, her and friend are on Zepbound, patient expresses interest. Discussed side effects including nausea, constipation, reflux, muscle loss, hair thinning. Plan to submit PA today. Follow-up in 4 weeks. 01/14/2025: Weight 361.6 pounds, BMI 56.63. Congratulated on effort. She lost 4 pounds overall, fat mass decreased 6 pounds, skeletal muscle mass remained the same, visceral adipose tissue increased 1 point. Discussed protein and exercise goals. Plan to increase to Zepbound 5 mg weekly injections. Follow-up in 4 weeks. #Hypertension: BP today 140/86. Patient states at home on average her BP is 115-120 systolic. 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 Continue atenolol 25 mg daily. Continue follow-up with PCP. #Prediabetes: Patient states last year her A1c was in prediabetic range. Most recently, she states a few months ago her A1c is now in the normal range. Likely due to lifestyle modifications. Encouraged to continue lifestyle modifications as above. #Anxiety: Patient reports severe anxiety, she has trialed several different medications with no relief. Denies any thoughts of hurting self or others. Continue following with PCP. Continue imipramine 50 mg daily, and lorazepam 0.5 mg as needed. Patient encouraged to contact the office if symptoms worsen, as we can provide additional resources. Patient was reassured and welcomed to the practice. We discussed that we stress a hollistic medical approach with emphasis on lifestyle modification. Patient was informed that a healthy lifestyle with exercise and good eating habits can help reduce his risk of medical complications. Patient is explained that obesity increases his risk of diabetes, cardiovascular disease, or organ damage. We spent a lot of time discussing the relationship between food, exercise, sleep, mental health and obesity. Patient was counseled on the importance EATING local, organic food when possible. Patient was educated on clean 15 and dirty dozen. I provided information about reading books called The Food Rules by Jean Paul Dixon and Eat Fat Get Lean by Dr Tony Laura. Self education is important in the journey for weight management. Patient was offered diagnostic testing/ SECA scale. We want to measure visceral adiposity, advanced body composition, adverse lipids, fatty acid balance, risk for heart disease and atherosclerosis, markers of inflammation and genetic susceptibility. Patient was counseled on weight management and was advised to lose weight using A. Meal Replacement Products Patient was educated on the replacement products called optifast. This is a good way of taking fixed amount of calories. It has been shown in studies to be ineffective weight management tool. This however has to be coupled with lifestyle intervention as well as laboratory data and EKG monitoring. It is impossible to know how a person will tolerate complete meal replacement. The side effects of meal replacement and weight loss could include syncopal attacks, dizziness, gallstones, potential cholecystectomy, possible heart attack and even . The benefits of meal replacement would be potential weight loss but no guarantees can be made. Meal replacement products are not covered by insurance. Once the patient has bought these products we cannot return them B. Lifestyle management which includes several strategies as below 1. Eat a low carbohydrate good fat good protein diet. Eliminate refined carbohydrates from the diet. Limit sugared beverages. Eat local organic when possible. Cook your own meals. Read food labels. Focus on healthy snacks. Portion control and food with low glycemic index 2. Exercise regularly. Try to get at least 6000 steps a day. Use a predominant to track activity level. Consider using apps like 7 minute excercise, IdenIvepal, lose it, stick as needed for self-monitoring and weight management. Consider group exercises. Consider hiring a personal banking assistant. Regular exercise is arenas to sustainable health and prevents as a buffer against weight regain 3. Sleep is most important for healing. Try to sleep at least 6-8 hours a night. A good quality sleep needs a sleep ritual with ideal room temperature of around 68. It might help to take a shower and have no electronics in the room and sleep in a very dark room without artificial light. Start sleep routine and get up early in the morning and go to bed on time. 4. Make a social connection. Surround yourself with positive people with positive energy. Connect with friends and family. 5. Get into the habit of meditating and mindfulness while doing everything. 6. Go outside and connect with nature. C. Prescription medications Patient was educated on the use of prescription medications for medical weight loss. This is a growing list and includes phentermine, Topamax,Qsymia, contrave, belviq and saxenda, wegovy etc. All prescription medications could have side effects including but not limited to kidney stones, seizure disorder cardiac arrhythmias heart attack pancreatitis, GI effects, Etc. Patient was encouraged to read the prescription insert and have coaching with their pharmacist and make an informed decision about taking medication and know that these medications are being prescribed with good intentions and we do not know how a patient would react to her medication. Some medications are FDA approved for weight loss and there is also off label use depending on patient's inability to afford medications in an attempt to lose weight D. Behavioral counseling was done to establish a relationship between food and an mood. Patient was provided information about local counseling and psychiatry and Dr Wyatt at [facility]. We would like to cover regular topics and build on low glycemic eating exercise mindful eating, using yoga and meditation along with deep breathing and connecting with friends and family. E. MASS PAT reviewed, Patient's current medications were reviewed and opinion was given on medication that can cause weight gain and can be substituted F. Patient was assessed for risk with obesity including and not limiting to atherosclerosis heart disease stroke kidney disease, restrictive lung disease, irritable bowel syndrome and overall mortality. Risk of developing prediabetes diabetes and metabolic syndrome was discussed G. Therapeutic plan: We have decided to make therapeutic plan which would include choosing wisely on calories restricting portion getting active, tracking weight, getting good quality sleep and working on time management H. Patient will follow up in 4 weeks for weight management Total time spent today was 60 minutes of which greater than 50% was spent on coordinating and counseling Case discussed with collaborating physician Oksana Cullen who reviewed the assessment and plan. Chart, medications, labs, vital signs reviewed. Dictation was accomplished with the use of haku voice recognition software, prone to medical misidentifications and grammatical errors. This is unintentional and the practitioner does try to identify and correct these, but some could still be present. Please do not hesitate to contact practitioner for clarification. All questions answered to patients satisfaction. Patient verbalized understanding of diagnosis and treatments explained. To call sooner prior to next visit it any questions/concerns arise. 02/22/2025 Encounter for examination of blood pressure without abnormal findings (ICD-10 - Z01.30) Luciana is a 38-year-old female who presents for weight management consult. Medical history, labs, allergies, medications, and social history reviewed with the patient. Provided education on healthy diet and lifestyle which includes high-protein, low carbohydrate, high-fiber, and a variety of fruits and vegetables. Patient encouraged to exercise with emphasis on resistance training minimum 3 times per week to maintain muscle mass and cardio to burn fat. All patient questions answered. Patient will follow-up in 4 weeks for weight management. #Morbid obesity: 12/17/2024: Weight 365.1 pounds, BMI 57.18. Patient followed with [facility] weight management program and did lose weight. For 12 months, she has been on the keto diet, and exercises daily for 30 minutes by aerobic dancing, different sports, and walking. She successfully lost 100 pounds. She did gain some weight back due to stress after her sister unexpectedly passed. She continues these lifestyle modifications, however, she has been unable to lose further weight. Discussed oral and injectable medications, her and friend are on Zepbound, patient expresses interest. Discussed side effects including nausea, constipation, reflux, muscle loss, hair thinning. Plan to submit PA today. Follow-up in 4 weeks. 01/14/2025: Weight 361.6 pounds, BMI 56.63. Congratulated on effort. She lost 4 pounds overall, fat mass decreased 6 pounds, skeletal muscle mass remained the same, visceral adipose tissue increased 1 point. Discussed protein and exercise goals. Plan to increase to Zepbound 5 mg weekly injections. Follow-up in 4 weeks. 02/22/2025: Weight 344.3 pounds, BMI 53.7. Congratulated on effort. Recently started Zepbound 7.5 mg weekly injections. Continues to focus on protein, exercises at her job for 30 minutes a day. On review of body composition scan, skeletal muscle mass decreased 3.5 pounds, visceral adipose tissue decreased from 7.1-6.3, waist circumference decreased from 62 to 59.5 inches, fat mass decreased 8 pounds. Plan to continue Zepbound 7.5 mg weekly injections. Follow-up in 4 weeks. #Hypertension: BP Controlled today. Patient states at home on average her BP is 115-120 systolic. 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 Continue atenolol 25 mg daily. Continue follow-up with PCP. #Prediabetes: Patient states last year her A1c was in prediabetic range. Most recently, she states a few months ago her A1c is now in the normal range. Likely due to lifestyle modifications. Encouraged to continue lifestyle modifications as above. #Anxiety: Patient reports severe anxiety, she has trialed several different medications with no relief. Denies any thoughts of hurting self or others. Continue following with PCP. Continue imipramine 50 mg daily, and lorazepam 0.5 mg as needed. Patient encouraged to contact the office if symptoms worsen, as we can provide additional resources. Patient was reassured and welcomed to the practice. We discussed that we stress a hollistic medical approach with emphasis on lifestyle modification. Patient was informed that a healthy lifestyle with exercise and good eating habits can help reduce his risk of medical complications. Patient is explained that obesity increases his risk of diabetes, cardiovascular disease, or organ damage. We spent a lot of time discussing the relationship between food, exercise, sleep, mental health and obesity. Patient was counseled on the importance EATING local, organic food when possible. Patient was educated on clean 15 and dirty dozen. I provided information about reading books called The Food Rules by Jean Paul Dixon and Eat Fat Get Lean by Dr Tony Laura. Self education is important in the journey for weight management. Patient was offered diagnostic testing/ SECA scale. We want to measure visceral adiposity, advanced body composition, adverse lipids, fatty acid balance, risk for heart disease and atherosclerosis, markers of inflammation and genetic susceptibility. Patient was counseled on weight management and was advised to lose weight using A. Meal Replacement Products Patient was educated on the replacement products called optifast. This is a good way of taking fixed amount of calories. It has been shown in studies to be ineffective weight management tool. This however has to be coupled with lifestyle intervention as well as laboratory data and EKG monitoring. It is impossible to know how a person will tolerate complete meal replacement. The side effects of meal replacement and weight loss could include syncopal attacks, dizziness, gallstones, potential cholecystectomy, possible heart attack and even . The benefits of meal replacement would be potential weight loss but no guarantees can be made. Meal replacement products are not covered by insurance. Once the patient has bought these products we cannot return them B. Lifestyle management which includes several strategies as below 1. Eat a low carbohydrate good fat good protein diet. Eliminate refined carbohydrates from the diet. Limit sugared beverages. Eat local organic when possible. Cook your own meals. Read food labels. Focus on healthy snacks. Portion control and food with low glycemic index 2. Exercise regularly. Try to get at least 6000 steps a day. Use a predominant to track activity level. Consider using apps like 7 minute excercise, myfitnesspal, lose it, stick as needed for self-monitoring and weight management. Consider group exercises. Consider hiring a personal banking assistant. Regular exercise is arenas to sustainable health and prevents as a buffer against weight regain 3. Sleep is most important for healing. Try to sleep at least 6-8 hours a night. A good quality sleep needs a sleep ritual with ideal room temperature of around 68. It might help to take a shower and have no electronics in the room and sleep in a very dark room without artificial light. Start sleep routine and get up early in the morning and go to bed on time. 4. Make a social connection. Surround yourself with positive people with positive energy. Connect with friends and family. 5. Get into the habit of meditating and mindfulness while doing everything. 6. Go outside and connect with nature. C. Prescription medications Patient was educated on the use of prescription medications for medical weight loss. This is a growing list and includes phentermine, Topamax,Qsymia, contrave, belviq and saxenda, wegovy etc. All prescription medications could have side effects including but not limited to kidney stones, seizure disorder cardiac arrhythmias heart attack pancreatitis, GI effects, Etc. Patient was encouraged to read the prescription insert and have coaching with their pharmacist and make an informed decision about taking medication and know that these medications are being prescribed with good intentions and we do not know how a patient would react to her medication. Some medications are FDA approved for weight loss and there is also off label use depending on patient's inability to afford medications in an attempt to lose weight D. Behavioral counseling was done to establish a relationship between food and an mood. Patient was provided information about local counseling and psychiatry and Dr Wyatt at [facility]. We would like to cover regular topics and build on low glycemic eating exercise mindful eating, using yoga and meditation along with deep breathing and connecting with friends and family. E. MASS PAT reviewed, Patient's current medications were reviewed and opinion was given on medication that can cause weight gain and can be substituted F. Patient was assessed for risk with obesity including and not limiting to atherosclerosis heart disease stroke kidney disease, restrictive lung disease, irritable bowel syndrome and overall mortality. Risk of developing prediabetes diabetes and metabolic syndrome was discussed G. Therapeutic plan: We have decided to make therapeutic plan which would include choosing wisely on calories restricting portion getting active, tracking weight, getting good quality sleep and working on time management H. Patient will follow up in 4 weeks for weight management Total time spent today was 60 minutes of which greater than 50% was spent on coordinating and counseling Case discussed with collaborating physician Oksana Cullen who reviewed the assessment and plan. Chart, medications, labs, vital signs reviewed. Dictation was accomplished with the use of haku voice recognition software, prone to medical misidentifications and grammatical errors. This is unintentional and the practitioner does try to identify and correct these, but some could still be present. Please do not hesitate to contact practitioner for clarification. All questions answered to patients satisfaction. Patient verbalized understanding of diagnosis and treatments explained. To call sooner prior to next visit it any questions/concerns arise. 01/14/2025 Encounter for examination of blood pressure with abnormal findings (ICD-10 - Z01.31) Luciana is a 38-year-old female who presents for weight management consult. Medical history, labs, allergies, medications, and social history reviewed with the patient. Provided education on healthy diet and lifestyle which includes high-protein, low carbohydrate, high-fiber, and a variety of fruits and vegetables. Patient encouraged to exercise with emphasis on resistance training minimum 3 times per week to maintain muscle mass and cardio to burn fat. All patient questions answered. Patient will follow-up in 4 weeks for weight management. #Morbid obesity: 12/17/2024: Weight 365.1 pounds, BMI 57.18. Patient followed with [facility] weight management program and did lose weight. For 12 months, she has been on the keto diet, and exercises daily for 30 minutes by aerobic dancing, different sports, and walking. She successfully lost 100 pounds. She did gain some weight back due to stress after her sister unexpectedly passed. She continues these lifestyle modifications, however, she has been unable to lose further weight. Discussed oral and injectable medications, her and friend are on Zepbound, patient expresses interest. Discussed side effects including nausea, constipation, reflux, muscle loss, hair thinning. Plan to submit PA today. Follow-up in 4 weeks. 01/14/2025: Weight 361.6 pounds, BMI 56.63. Congratulated on effort. She lost 4 pounds overall, fat mass decreased 6 pounds, skeletal muscle mass remained the same, visceral adipose tissue increased 1 point. Discussed protein and exercise goals. Plan to increase to Zepbound 5 mg weekly injections. Follow-up in 4 weeks. #Hypertension: BP today 140/86. Patient states at home on average her BP is 115-120 systolic. 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 Continue atenolol 25 mg daily. Continue follow-up with PCP. #Prediabetes: Patient states last year her A1c was in prediabetic range. Most recently, she states a few months ago her A1c is now in the normal range. Likely due to lifestyle modifications. Encouraged to continue lifestyle modifications as above. #Anxiety: Patient reports severe anxiety, she has trialed several different medications with no relief. Denies any thoughts of hurting self or others. Continue following with PCP. Continue imipramine 50 mg daily, and lorazepam 0.5 mg as needed. Patient encouraged to contact the office if symptoms worsen, as we can provide additional resources. Patient was reassured and welcomed to the practice. We discussed that we stress a hollistic medical approach with emphasis on lifestyle modification. Patient was informed that a healthy lifestyle with exercise and good eating habits can help reduce his risk of medical complications. Patient is explained that obesity increases his risk of diabetes, cardiovascular disease, or organ damage. We spent a lot of time discussing the relationship between food, exercise, sleep, mental health and obesity. Patient was counseled on the importance EATING local, organic food when possible. Patient was educated on clean 15 and dirty dozen. I provided information about reading books called The Food Rules by Jean Paul Dixon and Eat Fat Get Lean by Dr Tony Laura. Self education is important in the journey for weight management. Patient was offered diagnostic testing/ SECA scale. We want to measure visceral adiposity, advanced body composition, adverse lipids, fatty acid balance, risk for heart disease and atherosclerosis, markers of inflammation and genetic susceptibility. Patient was counseled on weight management and was advised to lose weight using A. Meal Replacement Products Patient was educated on the replacement products called optifast. This is a good way of taking fixed amount of calories. It has been shown in studies to be ineffective weight management tool. This however has to be coupled with lifestyle intervention as well as laboratory data and EKG monitoring. It is impossible to know how a person will tolerate complete meal replacement. The side effects of meal replacement and weight loss could include syncopal attacks, dizziness, gallstones, potential cholecystectomy, possible heart attack and even . The benefits of meal replacement would be potential weight loss but no guarantees can be made. Meal replacement products are not covered by insurance. Once the patient has bought these products we cannot return them B. Lifestyle management which includes several strategies as below 1. Eat a low carbohydrate good fat good protein diet. Eliminate refined carbohydrates from the diet. Limit sugared beverages. Eat local organic when possible. Cook your own meals. Read food labels. Focus on healthy snacks. Portion control and food with low glycemic index 2. Exercise regularly. Try to get at least 6000 steps a day. Use a predominant to track activity level. Consider using apps like 7 minute excercise, myTistagamesnesspal, lose it, stick as needed for self-monitoring and weight management. Consider group exercises. Consider hiring a personal banking assistant. Regular exercise is arenas to sustainable health and prevents as a buffer against weight regain 3. Sleep is most important for healing. Try to sleep at least 6-8 hours a night. A good quality sleep needs a sleep ritual with ideal room temperature of around 68. It might help to take a shower and have no electronics in the room and sleep in a very dark room without artificial light. Start sleep routine and get up early in the morning and go to bed on time. 4. Make a social connection. Surround yourself with positive people with positive energy. Connect with friends and family. 5. Get into the habit of meditating and mindfulness while doing everything. 6. Go outside and connect with nature. C. Prescription medications Patient was educated on the use of prescription medications for medical weight loss. This is a growing list and includes phentermine, Topamax,Qsymia, contrave, belviq and saxenda, wegovy etc. All prescription medications could have side effects including but not limited to kidney stones, seizure disorder cardiac arrhythmias heart attack pancreatitis, GI effects, Etc. Patient was encouraged to read the prescription insert and have coaching with their pharmacist and make an informed decision about taking medication and know that these medications are being prescribed with good intentions and we do not know how a patient would react to her medication. Some medications are FDA approved for weight loss and there is also off label use depending on patient's inability to afford medications in an attempt to lose weight D. Behavioral counseling was done to establish a relationship between food and an mood. Patient was provided information about local counseling and psychiatry and Dr Wyatt at [facility]. We would like to cover regular topics and build on low glycemic eating exercise mindful eating, using yoga and meditation along with deep breathing and connecting with friends and family. E. MASS PAT reviewed, Patient's current medications were reviewed and opinion was given on medication that can cause weight gain and can be substituted F. Patient was assessed for risk with obesity including and not limiting to atherosclerosis heart disease stroke kidney disease, restrictive lung disease, irritable bowel syndrome and overall mortality. Risk of developing prediabetes diabetes and metabolic syndrome was discussed G. Therapeutic plan: We have decided to make therapeutic plan which would include choosing wisely on calories restricting portion getting active, tracking weight, getting good quality sleep and working on time management H. Patient will follow up in 4 weeks for weight management Total time spent today was 60 minutes of which greater than 50% was spent on coordinating and counseling Case discussed with collaborating physician Oksana Cullen who reviewed the assessment and plan. Chart, medications, labs, vital signs reviewed. Dictation was accomplished with the use of haku voice recognition software, prone to medical misidentifications and grammatical errors. This is unintentional and the practitioner does try to identify and correct these, but some could still be present. Please do not hesitate to contact practitioner for clarification. All questions answered to patients satisfaction. Patient verbalized understanding of diagnosis and treatments explained. To call sooner prior to next visit it any questions/concerns arise. Plan Of Treatment Next Appt Details Provider Name:Erlinda thurston, 03/22/2025 08:30:00 AM, [address] [facility], [facility] [address], [place], [address], Insurance Providers Payer Name Payer Address Payer Phone Subscriber Number Group Number Insured Name Patient Relationship to Insured Coverage Start Date Coverage End Date [address] [place] [address] [id number] Idalmis Gallegos Self - patient is the insured 3 Medical (General) History Medical History History ICD Code hemorrhoids Hypertension, essential I10 Anxiety, generalized F41.1 Depression F32.A Surgical History Surgery Date(Month/Year) fibroid removal 2004 section 2006, 2008 gallbladder removal 2010 Hospitalization History Reason Date(Month/Year) pneumonia, RSV 2004
== END 2025-03-18 08:42 | disposition home or self-care (01) ==
LOC: HO.HMCC 08:05
PROVIDERS: PCP Internal Medicine; Visit Provider Internal Medicine
DX: I10 Essential (primary) hypertension (principal); E66.01 Morbid (severe) obesity due to excess calories; Z68.43 Body mass index [BMI] 50.0-59.9, adult; R14.2 Eructation; F41.0 Panic disorder [episodic paroxysmal anxiety]; K52.9 Noninfective gastroenteritis and colitis, unspecified; R79.89 Other specified abnormal findings of blood chemistry; E55.9 Vitamin D deficiency, unspecified; Z90.49 Acquired absence of other specified parts of digestive tract

== ENCOUNTER 2025-04-02 08:01 | Outpatient (REF) | payer OTHER, SELFPAY ==
--- OUTSIDE RECORDS SUMMARY | 2025-04-02 08:03 | XMS_ITS | Patient Health Record ---
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 Role Phone Kike Slaughter Primary Care Provider Erlinda Noel Unavailable [phone] Allergies No Known Allergies Reason For Referral No Information Medications Medication SIG (Take, Route, Frequency, Duration) Notes Start Date End Date Status Pantoprazole Sodium 20 MG 1 tablet 1/2 t o 1 hour before morning meal Orally Once a day; Duration: 30 days 03/22/2025 Active NexIUM 20 MG 1 capsule 1/2 to 1 h our before morning meal Orally Once a day 02/22/2025 Active Probiotic 250 MG as directed Orally daily 03/22/20 Active Zepbound 7.5 MG/0.5ML inject 7.5 mg Subc utaneous weekly; Duration: 28 days Active LORazepam 0.5 MG 1 tablet at bedtime as needed Orally Once a day Active Imipramine HCl 50 MG 1 tablet 1 hour bef ore bedtime Orally Once a day Active Atenolol 25 MG 1 tablet Orally Once a day Active Ondansetron 4 MG 1 tablet on the tongue and allow to dissolve Orally Once a day; Duration: 30 days As needed 03/22/2025 Active Social History Tobacco Use: Social History [...] Status Risk Notes Problem Abnormal blood pressure (16109801) Encounter for examination of blood pressure with abnormal findings (Z01.31) Active confirmed Problem Essential hypertension (03478267) Essential hypertension (I10) Active confirmed Problem Morbid obesity (358312314) Morbid obesity (E66.01) Active confirmed Problem Body mass index 40+ - severely obese (259494940) BMI 50.0-59.9, adult (Z68.43) Active confirmed Problem Essential hypertension (86956722) Hypertension, essential (I10) Active confirmed Problem Generalized anxiety disorder (93637366) Anxiety, generalized (F41.1) Active confirmed Vital Signs Heart Rate 96 /min 03/22/2025 Oximetry 99 % 03/22/2025 Blood pressure diastolic 82 mm Hg 03/22/2025 Height 67 in 03/22/2025 Blood pressure systolic 126 mm Hg 03/22/2025 Weight 332.2 lbs 03/22/2025 BMI 52.02 kg/m2 03/22/2025 Encounters Encounter Location Date Provider Diagnosis [facility] [address] [address] 12/17/2024 Erlinda Normoyle Morbid obesity E66.0 1 ; BMI 50.0-59.9, adult Z68.43 ; Essential hypertension I10 ; Prediabetes R73.03 ; Anxiety, generalized F41.1 and Encounter for examination of blood pressure with abnormal findings Z01.31 [facility] [address] [address] 01/14/2025 Erlinda Normoyle Morbid obesity E66.0 1 ; BMI 50.0-59.9, adult Z68.43 ; Essential hypertension I10 ; Prediabetes R73.03 ; Anxiety, generalized F41.1 and Encounter for examination of blood pressure with abnormal findings Z01.31 [facility] [address] [address] 02/22/2025 Erlinda Normoyle Morbid obesity E66.0 1 ; BMI 50.0-59.9, adult Z68.43 ; Essential hypertension I10 ; Prediabetes R73.03 ; Anxiety, generalized F41.1 and Encounter for examination of blood pressure without abnormal findings Z01.30 [facility] [address] [facility] [address] [place] [address] 03/22/2025 Erlinda Normoyle Morbid obesity E66.0 1 ; BMI 50.0-59.9, adult Z68.43 ; Essential hypertension I10 ; Prediabetes R73.03 ; Anxiety, generalized F41.1 ; Encounter for examination of blood pressure without abnormal findings Z01.30 ; Nausea R11.0 and Heartburn R12 [facility] [address] [facility] [address] [place] [address] 12/17/2024 Erlinda Normoyle [facility] [address] [facility] [address] [place] [address] 12/30/2024 Erlinda Normoyle [facility] [address] [place] [address] 01/03/2025 Erlinda Normoyle [facility] [address] [place] [address] 02/11/2025 Erlinda Normoyle Morbid obesity E66.0 1 [...] 365.1 pounds, BMI 57.18. Patient followed with [facility] weight management program and did lose weight. [...] Consider using apps like 7 minute excercise, myTruliapal, lose it, stick as needed for self-monitoring and weight management. Consider group exercises. Consider hiring a personal computer network engineer. Regular exercise is arenas to sustainable health [...] counseling and psychiatry and Dr Wyatt at [facility]. We would like to cover regular topics [...] Dictation was accomplished with the use of [employer] voice recognition software, prone to medical misidentifications [...] 365.1 pounds, BMI 57.18. Patient followed with [facility] weight management program and did lose weight. [...] Consider using apps like 7 minute excercise, myfitMESIpal, lose it, stick as needed for self-monitoring and weight management. Consider group exercises. Consider hiring a personal computer network engineer. Regular exercise is arenas to sustainable health [...] counseling and psychiatry and Dr Wyatt at [facility]. We would like to cover regular topics [...] Dictation was accomplished with the use of [employer] voice recognition software, prone to medical misidentifications [...] 365.1 pounds, BMI 57.18. Patient followed with [facility] weight management program and did lose weight. [...] Consider using apps like 7 minute excercise, Access Information Managementpal, lose it, stick as needed for self-monitoring and weight management. Consider group exercises. Consider hiring a personal computer network engineer. Regular exercise is arenas to sustainable health [...] counseling and psychiatry and Dr Wyatt at [facility]. We would like to cover regular topics [...] Dictation was accomplished with the use of [employer] voice recognition software, prone to medical misidentifications [...] 365.1 pounds, BMI 57.18. Patient followed with [facility] weight management program and did lose weight. [...] Consider group exercises. Consider hiring a personal computer network engineer. Regular exercise is arenas to sustainable health [...] counseling and psychiatry and Dr Wyatt at [facility]. We would like to cover regular topics [...] Dictation was accomplished with the use of [employer] voice recognition software, prone to medical misidentifications [...] 365.1 pounds, BMI 57.18. Patient followed with [facility] weight management program and did lose weight. [...] Eat Fat Get Lean by Dr Tony Larua. Self education is important in the journey [...] Consider using apps like 7 minute excercise, myfitMESIpal, lose it, stick as needed for self-monitoring and weight management. Consider group exercises. Consider hiring a personal computer network engineer. Regular exercise is arenas to sustainable health [...] counseling and psychiatry and Dr Wyatt at [facility]. We would like to cover regular topics [...] Dictation was accomplished with the use of [employer] voice recognition software, prone to medical misidentifications and grammatical errors. This is unintentional and the practitioner does try to identify and correct these, but some could still be present. Please do not hesitate to contact practitioner for clarification. All questions answered to patients satisfaction. Patient verbalized understanding of diagnosis and treatments explained. To call sooner prior to next visit it any questions/concerns arise. 03/22/2025 Morbid obesity (ICD-10 - E66.01) Luciana is [...] 365.1 pounds, BMI 57.18. Patient followed with [facility] weight management program and did lose weight. [...] mg weekly injections. Follow-up in 4 weeks. 03/22/2025: Weight 332.2 pounds, BMI 51.8. Continues on Zepbound 7.5 mg weekly injections. Reports side effects of heartburn, belching, nausea. On review of scan, skeletal muscle mass decreased 1 pound, fat mass decreased 6 pounds, visceral adipose tissue went from 6.3-6.5, hydration decreased as well. Discussed hydration, protein, exercise goals. Continue on Zepbound 7.5 mg weekly injections. Plan to start Zofran and pantoprazole. Follow-up in 4 weeks. #Hypertension: BP Controlled [...] Consider using apps like 7 minute excercise, myRevneticsnesspal, lose it, stick as needed for self-monitoring and weight management. Consider group exercises. Consider hiring a personal computer network engineer. Regular exercise is arenas to sustainable health [...] counseling and psychiatry and Dr Wyatt at [facility]. We would like to cover regular topics [...] Dictation was accomplished with the use of [employer] voice recognition software, prone to medical misidentifications and grammatical errors. This is unintentional and the practitioner does try to identify and correct these, but some could still be present. Please do not hesitate to contact practitioner for clarification. All questions answered to patients satisfaction. Patient verbalized understanding of diagnosis and treatments explained. To call sooner prior to next visit it any questions/concerns arise. 03/22/2025 BMI 50.0-59.9, adult (ICD-10 - Z68.43) Luciana [...] 365.1 pounds, BMI 57.18. Patient followed with [facility] weight management program and did lose weight. [...] mg weekly injections. Follow-up in 4 weeks. 03/22/2025: Weight 332.2 pounds, BMI 51.8. Continues on Zepbound 7.5 mg weekly injections. Reports side effects of heartburn, belching, nausea. On review of scan, skeletal muscle mass decreased 1 pound, fat mass decreased 6 pounds, visceral adipose tissue went from 6.3-6.5, hydration decreased as well. Discussed hydration, protein, exercise goals. Continue on Zepbound 7.5 mg weekly injections. Plan to start Zofran and pantoprazole. Follow-up in 4 weeks. #Hypertension: BP Controlled [...] books called The Food Rules by Jean Palu Dixon and Eat Fat Get Lean by [...] Consider group exercises. Consider hiring a personal computer network engineer. Regular exercise is arenas to sustainable health [...] counseling and psychiatry and Dr Wyatt at [facility]. We would like to cover regular topics [...] Dictation was accomplished with the use of [employer] voice recognition software, prone to medical misidentifications and grammatical errors. This is unintentional and the practitioner does try to identify and correct these, but some could still be present. Please do not hesitate to contact practitioner for clarification. All questions answered to patients satisfaction. Patient verbalized understanding of diagnosis and treatments explained. To call sooner prior to next visit it any questions/concerns arise. 03/22/2025 Essential hypertension (ICD-10 - I10) Luciana is [...] 365.1 pounds, BMI 57.18. Patient followed with [facility] weight management program and did lose weight. [...] mg weekly injections. Follow-up in 4 weeks. 03/22/2025: Weight 332.2 pounds, BMI 51.8. Continues on Zepbound 7.5 mg weekly injections. Reports side effects of heartburn, belching, nausea. On review of scan, skeletal muscle mass decreased 1 pound, fat mass decreased 6 pounds, visceral adipose tissue went from 6.3-6.5, hydration decreased as well. Discussed hydration, protein, exercise goals. Continue on Zepbound 7.5 mg weekly injections. Plan to start Zofran and pantoprazole. Follow-up in 4 weeks. #Hypertension: BP Controlled [...] Consider using apps like 7 minute excercise, myTruliapal, lose it, stick as needed for self-monitoring and weight management. Consider group exercises. Consider hiring a personal computer network engineer. Regular exercise is arenas to sustainable health [...] counseling and psychiatry and Dr Wyatt at [facility]. We would like to cover regular topics [...] Dictation was accomplished with the use of [employer] voice recognition software, prone to medical misidentifications [...] 365.1 pounds, BMI 57.18. Patient followed with [facility] weight management program and did lose weight. [...] Consider using apps like 7 minute excercise, Access Information Managementpal, lose it, stick as needed for self-monitoring and weight management. Consider group exercises. Consider hiring a personal computer network engineer. Regular exercise is arenas to sustainable health [...] counseling and psychiatry and Dr Wyatt at [facility]. We would like to cover regular topics [...] Dictation was accomplished with the use of [employer] voice recognition software, prone to medical misidentifications [...] 365.1 pounds, BMI 57.18. Patient followed with [facility] weight management program and did lose weight. [...] Consider using apps like 7 minute excercise, Access Information Managementpal, lose it, stick as needed for self-monitoring and weight management. Consider group exercises. Consider hiring a personal computer network engineer. Regular exercise is arenas to sustainable health [...] counseling and psychiatry and Dr Wyatt at [facility]. We would like to cover regular topics [...] Dictation was accomplished with the use of [employer] voice recognition software, prone to medical misidentifications [...] 365.1 pounds, BMI 57.18. Patient followed with [facility] weight management program and did lose weight. [...] Consider using apps like 7 minute excercise, myTruliapal, lose it, stick as needed for self-monitoring and weight management. Consider group exercises. Consider hiring a personal computer network engineer. Regular exercise is arenas to sustainable health [...] counseling and psychiatry and Dr Wyatt at [facility]. We would like to cover regular topics [...] Dictation was accomplished with the use of [employer] voice recognition software, prone to medical misidentifications [...] 365.1 pounds, BMI 57.18. Patient followed with [facility] weight management program and did lose weight. [...] Consider group exercises. Consider hiring a personal computer network engineer. Regular exercise is arenas to sustainable health [...] counseling and psychiatry and Dr Wyatt at [facility]. We would like to cover regular topics [...] Dictation was accomplished with the use of [employer] voice recognition software, prone to medical misidentifications [...] 365.1 pounds, BMI 57.18. Patient followed with [facility] weight management program and did lose weight. [...] Consider using apps like 7 minute excercise, myTruliapal, lose it, stick as needed for self-monitoring and weight management. Consider group exercises. Consider hiring a personal computer network engineer. Regular exercise is arenas to sustainable health [...] counseling and psychiatry and Dr Wyatt at [facility]. We would like to cover regular topics [...] 365.1 pounds, BMI 57.18. Patient followed with [facility] weight management program and did lose weight. [...] Consider using apps like 7 minute excercise, Access Information Managementpal, lose it, stick as needed for self-monitoring and weight management. Consider group exercises. Consider hiring a personal computer network engineer. Regular exercise is arenas to sustainable health [...] counseling and psychiatry and Dr Wyatt at [facility]. We would like to cover regular topics [...] Dictation was accomplished with the use of [employer] voice recognition software, prone to medical misidentifications and grammatical errors. This is unintentional and the practitioner does try to identify and correct these, but some could still be present. Please do not hesitate to contact practitioner for clarification. All questions answered to patients satisfaction. Patient verbalized understanding of diagnosis and treatments explained. To call sooner prior to next visit it any questions/concerns arise. 03/22/2025 Prediabetes (ICD-10 - R73.03) Luciana is a [...] 365.1 pounds, BMI 57.18. Patient followed with [facility] weight management program and did lose weight. [...] mg weekly injections. Follow-up in 4 weeks. 03/22/2025: Weight 332.2 pounds, BMI 51.8. Continues on Zepbound 7.5 mg weekly injections. Reports side effects of heartburn, belching, nausea. On review of scan, skeletal muscle mass decreased 1 pound, fat mass decreased 6 pounds, visceral adipose tissue went from 6.3-6.5, hydration decreased as well. Discussed hydration, protein, exercise goals. Continue on Zepbound 7.5 mg weekly injections. Plan to start Zofran and pantoprazole. Follow-up in 4 weeks. #Hypertension: BP Controlled [...] Consider group exercises. Consider hiring a personal computer network engineer. Regular exercise is arenas to sustainable health [...] counseling and psychiatry and Dr Wyatt at [facility]. We would like to cover regular topics [...] Dictation was accomplished with the use of [employer] voice recognition software, prone to medical misidentifications and grammatical errors. This is unintentional and the practitioner does try to identify and correct these, but some could still be present. Please do not hesitate to contact practitioner for clarification. All questions answered to patients satisfaction. Patient verbalized understanding of diagnosis and treatments explained. To call sooner prior to next visit it any questions/concerns arise. 03/22/2025 Anxiety, generalized (ICD-10 - F41.1) Luciana is [...] 365.1 pounds, BMI 57.18. Patient followed with [facility] weight management program and did lose weight. [...] mg weekly injections. Follow-up in 4 weeks. 03/22/2025: Weight 332.2 pounds, BMI 51.8. Continues on Zepbound 7.5 mg weekly injections. Reports side effects of heartburn, belching, nausea. On review of scan, skeletal muscle mass decreased 1 pound, fat mass decreased 6 pounds, visceral adipose tissue went from 6.3-6.5, hydration decreased as well. Discussed hydration, protein, exercise goals. Continue on Zepbound 7.5 mg weekly injections. Plan to start Zofran and pantoprazole. Follow-up in 4 weeks. #Hypertension: BP Controlled [...] Consider using apps like 7 minute excercise, Access Information Managementpal, lose it, stick as needed for self-monitoring and weight management. Consider group exercises. Consider hiring a personal computer network engineer. Regular exercise is arenas to sustainable health [...] counseling and psychiatry and Dr Wyatt at [facility]. We would like to cover regular topics [...] Dictation was accomplished with the use of [employer] voice recognition software, prone to medical misidentifications [...] 365.1 pounds, BMI 57.18. Patient followed with [facility] weight management program and did lose weight. [...] Consider using apps like 7 minute excercise, Access Information Managementpal, lose it, stick as needed for self-monitoring and weight management. Consider group exercises. Consider hiring a personal computer network engineer. Regular exercise is arenas to sustainable health [...] counseling and psychiatry and Dr Wyatt at [facility]. We would like to cover regular topics [...] Dictation was accomplished with the use of [employer] voice recognition software, prone to medical misidentifications [...] 365.1 pounds, BMI 57.18. Patient followed with [facility] weight management program and did lose weight. [...] Consider using apps like 7 minute excercise, myTruliapal, lose it, stick as needed for self-monitoring and weight management. Consider group exercises. Consider hiring a personal computer network engineer. Regular exercise is arenas to sustainable health [...] counseling and psychiatry and Dr Wyatt at [facility]. We would like to cover regular topics [...] Dictation was accomplished with the use of [employer] voice recognition software, prone to medical misidentifications [...] 365.1 pounds, BMI 57.18. Patient followed with [facility] weight management program and did lose weight. [...] Eat Fat Get Lean by Dr Tony Lauar. Self education is important in the journey [...] Consider using apps like 7 minute excercise, Access Information Managementpal, lose it, stick as needed for self-monitoring and weight management. Consider group exercises. Consider hiring a personal computer network engineer. Regular exercise is arenas to sustainable health [...] counseling and psychiatry and Dr Wyatt at [facility]. We would like to cover regular topics [...] Dictation was accomplished with the use of [employer] voice recognition software, prone to medical misidentifications [...] 365.1 pounds, BMI 57.18. Patient followed with [facility] weight management program and did lose weight. [...] Consider using apps like 7 minute excercise, Access Information Managementpal, lose it, stick as needed for self-monitoring and weight management. Consider group exercises. Consider hiring a personal computer network engineer. Regular exercise is arenas to sustainable health [...] counseling and psychiatry and Dr Wyatt at [facility]. We would like to cover regular topics [...] Dictation was accomplished with the use of [employer] voice recognition software, prone to medical misidentifications [...] 365.1 pounds, BMI 57.18. Patient followed with [facility] weight management program and did lose weight. [...] Consider using apps like 7 minute excercise, myfitMESIpal, lose it, stick as needed for self-monitoring and weight management. Consider group exercises. Consider hiring a personal computer network engineer. Regular exercise is arenas to sustainable health [...] counseling and psychiatry and Dr Wyatt at [facility]. We would like to cover regular topics [...] Dictation was accomplished with the use of [employer] voice recognition software, prone to medical misidentifications [...] 365.1 pounds, BMI 57.18. Patient followed with [facility] weight management program and did lose weight. [...] Consider using apps like 7 minute excercise, Access Information Managementpal, lose it, stick as needed for self-monitoring and weight management. Consider group exercises. Consider hiring a personal computer network engineer. Regular exercise is arenas to sustainable health [...] counseling and psychiatry and Dr Wyatt at [facility]. We would like to cover regular topics [...] Dictation was accomplished with the use of [employer] voice recognition software, prone to medical misidentifications and grammatical errors. This is unintentional and the practitioner does try to identify and correct these, but some could still be present. Please do not hesitate to contact practitioner for clarification. All questions answered to patients satisfaction. Patient verbalized understanding of diagnosis and treatments explained. To call sooner prior to next visit it any questions/concerns arise. 03/22/2025 Encounter for examination of blood pressure without [...] 365.1 pounds, BMI 57.18. Patient followed with [facility] weight management program and did lose weight. [...] mg weekly injections. Follow-up in 4 weeks. 03/22/2025: Weight 332.2 pounds, BMI 51.8. Continues on Zepbound 7.5 mg weekly injections. Reports side effects of heartburn, belching, nausea. On review of scan, skeletal muscle mass decreased 1 pound, fat mass decreased 6 pounds, visceral adipose tissue went from 6.3-6.5, hydration decreased as well. Discussed hydration, protein, exercise goals. Continue on Zepbound 7.5 mg weekly injections. Plan to start Zofran and pantoprazole. Follow-up in 4 weeks. #Hypertension: BP Controlled [...] Consider using apps like 7 minute excercise, myTruliapal, lose it, stick as needed for self-monitoring and weight management. Consider group exercises. Consider hiring a personal computer network engineer. Regular exercise is arenas to sustainable health [...] counseling and psychiatry and Dr Wyatt at [facility]. We would like to cover regular topics [...] Dictation was accomplished with the use of [employer] voice recognition software, prone to medical misidentifications [...] 365.1 pounds, BMI 57.18. Patient followed with [facility] weight management program and did lose weight. [...] Consider group exercises. Consider hiring a personal computer network engineer. Regular exercise is arenas to sustainable health [...] counseling and psychiatry and Dr Wyatt at [facility]. We would like to cover regular topics [...] Dictation was accomplished with the use of [employer] voice recognition software, prone to medical misidentifications and grammatical errors. This is unintentional and the practitioner does try to identify and correct these, but some could still be present. Please do not hesitate to contact practitioner for clarification. All questions answered to patients satisfaction. Patient verbalized understanding of diagnosis and treatments explained. To call sooner prior to next visit it any questions/concerns arise. 03/22/2025 Nausea (ICD-10 - R11.0) Luciana is a 38-year-old female who presents [...] 365.1 pounds, BMI 57.18. Patient followed with [facility] weight management program and did lose weight. [...] mg weekly injections. Follow-up in 4 weeks. 03/22/2025: Weight 332.2 pounds, BMI 51.8. Continues on Zepbound 7.5 mg weekly injections. Reports side effects of heartburn, belching, nausea. On review of scan, skeletal muscle mass decreased 1 pound, fat mass decreased 6 pounds, visceral adipose tissue went from 6.3-6.5, hydration decreased as well. Discussed hydration, protein, exercise goals. Continue on Zepbound 7.5 mg weekly injections. Plan to start Zofran and pantoprazole. Follow-up in 4 weeks. #Hypertension: BP Controlled [...] Consider using apps like 7 minute excercise, myTruliapal, lose it, stick as needed for self-monitoring and weight management. Consider group exercises. Consider hiring a personal computer network engineer. Regular exercise is arenas to sustainable health [...] counseling and psychiatry and Dr Wyatt at [facility]. We would like to cover regular topics [...] Dictation was accomplished with the use of [employer] voice recognition software, prone to medical misidentifications and grammatical errors. This is unintentional and the practitioner does try to identify and correct these, but some could still be present. Please do not hesitate to contact practitioner for clarification. All questions answered to patients satisfaction. Patient verbalized understanding of diagnosis and treatments explained. To call sooner prior to next visit it any questions/concerns arise. 03/22/2025 Heartburn (ICD-10 - R12) Luciana is a 38-year-old female who presents [...] 365.1 pounds, BMI 57.18. Patient followed with [facility] weight management program and did lose weight. [...] mg weekly injections. Follow-up in 4 weeks. 03/22/2025: Weight 332.2 pounds, BMI 51.8. Continues on Zepbound 7.5 mg weekly injections. Reports side effects of heartburn, belching, nausea. On review of scan, skeletal muscle mass decreased 1 pound, fat mass decreased 6 pounds, visceral adipose tissue went from 6.3-6.5, hydration decreased as well. Discussed hydration, protein, exercise goals. Continue on Zepbound 7.5 mg weekly injections. Plan to start Zofran and pantoprazole. Follow-up in 4 weeks. #Hypertension: BP Controlled [...] Consider group exercises. Consider hiring a personal computer network engineer. Regular exercise is arenas to sustainable health [...] counseling and psychiatry and Dr Wyatt at [facility]. We would like to cover regular topics [...] Dictation was accomplished with the use of [employer] voice recognition software, prone to medical misidentifications [...] Treatment Next Appt Details Provider Name:Erlinda thurston, 04/19/2025 08:15:00 AM, [address] [place] [address], [facility] [address], [place], [address], Insurance Providers Payer Name Payer Address Payer Phone Subscriber Number Group Number Insured Name Patient Relationship to Insured Coverage Start Date Coverage End Date [facility] [address] [place] [address] [phone] [id number] Rosy Idalmis Self - patient is the insured 3 Medical (General) History Medical History History ICD Code hemorrhoids Hypertension, essential I10 Anxiety, generalized F41.1 Depression F32.A Surgical History Surgery Date(Month/Year) fibroid removal 2004 section 2006, 2009 gallbladder removal 2010 Hospitalization History Reason Date(Month/Year) pneumonia, RSV 2004
[2025-04-02 11:10] LABS: MANUAL DIFF FLAG NO
[2025-04-02 11:14] LABS: Hematocrit 43.0 % (37.0-47.0); Hemoglobin 14.2 g/dl (12.0-16.0); Imm Gran Abs Auto 0.15 X10*3/uL (0.00-0.03); Imm Gran Pct Auto 1.5 % (0.0-0.4); Lymphocytes Absolute Auto 2.8 X10*3/uL (1.2-4.9); Mean Corpuscular HGB Conc 33.0 g/dl (31.0-35.0); Mean Corpuscular Hemoglobin 30.0 pg (27.0-33.0); Mean Corpuscular Volume 90.7 fL (80.0-98.0); NRBC Abs Auto 0.000 X10*3/uL (0.0-0.012); NRBC Pct Auto 0.0 /100WBC (0.0-0.2); Platelet Count 302 X10*3/uL (160-400); Red Blood Count 4.74 X10*6/uL (4.20-5.50); White Blood Count 9.9 X10*3/uL (4.8-10.8)
[2025-04-02 11:32] LABS: Alanine Aminotransferase 33 U/L (0-31); Albumin Level 4.3 g/dL (3.5-5.0); Alkaline Phosphatase 121 U/L (39-117); Amylase 26 U/L (28-100); Anion Gap 11 (12-20); Aspartate Amino Transferase 28 U/L (5-31); Blood Urea Nitrogen 6 mg/dL (9-16); Calcium 9.4 mg/dL (8.4-10.2); Carbon Dioxide 26 mmol/L (22-29); Chloride 107 mmol/L (96-108); Estimated Glomerular Filt Rate > 60; Lipase 17 U/L (8-78); Potassium 4.4 mmol/L (3.3-5.1); Sodium 140 mmol/L (135-145); Total Protein 7.4 g/dL (6.5-8.0)
== END 2025-04-02 08:02 | disposition home or self-care (01) ==
LOC: HO.HMGCLDS 08:01
PROVIDERS: PCP Internal Medicine; Visit Provider Internal Medicine
DX: I10 Essential (primary) hypertension (principal); F41.0 Panic disorder [episodic paroxysmal anxiety]; E66.01 Morbid (severe) obesity due to excess calories; R79.89 Other specified abnormal findings of blood chemistry; E55.9 Vitamin D deficiency, unspecified
CPT/HCPCS: 36415; 80053; 82150; 83036; 83690; 83721; 84443; 85025

== ENCOUNTER 2025-05-27 07:39 | Outpatient (REF) | payer OTHER, SELFPAY ==
--- OUTSIDE RECORDS SUMMARY | 2025-05-24 03:15 | XMS_ITS ---
[facility] Organization [facility] [address] Address [address] [place] [address] Care Team Providers Care Pad Hand Name Role Phone Kike Slaughter Primary Care Provider Erlinda Noel Unavailable [phone] Allergies No Known Allergies REASON FOR VISIT Patient seen in office for weight management follow up visit with sebastian completed Medications Medication SIG (Take, Route, Frequency, Duration) Notes Start Date End Date Status Pantoprazole Sodium 20 MG Tablet Delayed Release 1 tablet 1/2 to 1 hour before morning meal Orally Once a day; Duration: 30 days 03/22/2025 Active Probiotic 250 MG Capsule as directed Ora lly daily 03/22/2025 Active Zepbound 7.5 MG/0.5ML Solution Auto-injector inject 7.5 mg Subcutaneous weekly; Duration: 28 days Active Imipramine HCl 50 MG Tablet 1 tablet 1 hour before bedtime Orally Once a day Active LORazepam 0.5 MG Tablet 1 tablet at bedt margarita as needed Orally Once a day Active Ondansetron 4 MG Tablet Disintegrating 1 tablet on the tongue and allow to dissolve Orally Once a day; Duration: 30 days As needed 03/22/2025 Active NexIUM 20 MG Capsule Delayed Release 1 capsule 1/2 to 1 hour before morning meal Orally Once a day 02/22/2025 Not-Taking Atenolol 25 MG Tablet 1 tablet Orally On ce a day Active Social History Tobacco Use: Social History Observation Description Date Details (start date - stop date) Current Smoker NA - NA Social History Tobacco Use: Social Info Question Answer Notes Tobacco Control (Standard) Tobacco use: Current smoker How many cigarettes a day do you smoke? 5 or less How soon after you wake up do you smoke your first cigarette? 6-30 minutes Are you interested in quitting? Not ready to quit Tobacco use other than smoking: Are you an other tobac co user? Yes Section Notes: alcohol: none tobacco: 0.25 PPD x2 years marijuana: daily Problems Problem Type SNOMED Code ICD Code Onset Dates Problem Status W/U Status Risk Notes Problem Body mass index 40+ - severely obese ([id number]) BMI 45.0-49.9, adult (Z68.42) Active confirmed Vital Signs Blood pressure systolic 130 mm Hg 05/24/20 25 Blood pressure diastolic 88 mm Hg 025 Heart Rate 89 /min 05/24/2025 Height 67 in 05/24/2025 Weight 312.9 lbs 05/24/2025 BMI 49 kg/m2 05/24/2025 Oximetry 98 % 05/24/2025 Encounters Encounter Location Date Provider Diagnosis [facility] [address] [facility] [address] [facility] [address] [place] [address] 05/24/2025 Erlinda Normoyle Morbid obesity E66.0 1 ; BMI 45.0-49.9, adult Z68.42 ; Essential hypertension I10 ; Prediabetes R73.03 ; Anxiety, generalized F41.1 ; Nausea R11.0 ; Heartburn R12 and Encounter for examination of blood pressure without abnormal findings Z01.30 Assessments Encounter Date Diagnosis (ICD Code) Assessment Notes Treatment Notes Treatment Clinical Notes Section Notes 05/24/2025 Morbid obesity (ICD-10 - E66.01) Luciana is a 38-year-old female who presents for weight management f/u. Medical history, labs, allergies, medications, and social [...] obesity: 12/17/2024: Weight 365.1 pounds, BMI 57.18. 01/14/2025: Weight 361.6 pounds, BMI 56.63. She lost 4 pounds overall, fat mass decreased 6 pounds, skeletal muscle mass remained the same, visceral adipose tissue increased 1 point. 02/22/2025: Weight 344.3 pounds, BMI 53.7. Skeletal muscle mass decreased 3.5 pounds, visceral adipose tissue decreased from 7.1-6.3, waist circumference decreased from 62 to 59.5 inches, fat mass decreased 8 pounds. 03/22/2025: Weight 332.2 pounds, BMI 51.8. Skeletal muscle mass decreased 1 pound, fat mass decreased 6 pounds, visceral adipose tissue went from 6.3-6.5, hydration decreased as well. 04/19/2025: Weight 324.6 pounds, BMI 50.6. Skeletal muscle mass maintained, hydration increased, fat mass decreased 10 pounds. 05/24/2025: Weight 312.9 pounds, BMI 48.8. Congratulated on effort. Continues on Zepbound 7.5 mg weekly injections. Skeletal muscle mass decreased less than 1 pound, fat mass decreased 9 pounds. Discussed exercise, hydration, protein goals. Plan to continue Zepbound 7.5 mg weekly injections. Follow-up in 4 to 6 weeks. #Hypertension: BP Controlled today, BP 130/88. Patient states at home on average her [...] worsen, as we can provide additional resources. Total time spent today was 30 minutes of which greater than 50% was spent on coordinating and counseling Case discussed with collaborating physician Oksana Cullen who reviewed the assessment and plan. Chart, medications, labs, vital signs reviewed. Dictation was accomplished with the use of Show[employer]how voice recognition software, prone to medical misidentificatio ns and grammatical errors. This is unintentional and the practitioner does try to identify and correct these, but some could still be present. Please do not hesitate to contact practitioner for clarification. All questions answered to patients satisfaction. Patient verbalized understanding of diagnosis and treatments explained. To call sooner prior to next visit it any questions/concer ns arise. 05/24/2025 BMI 45.0-49.9, adult (ICD-10 - Z68.42) Luciana is a 38-year-old female who presents for weight management f/u. Medical history, labs, allergies, medications, and social [...] obesity: 12/17/2024: Weight 365.1 pounds, BMI 57.18. 01/14/2025: Weight 361.6 pounds, BMI 56.63. She lost 4 pounds overall, fat mass decreased 6 pounds, skeletal muscle mass remained the same, visceral adipose tissue increased 1 point. 02/22/2025: Weight 344.3 pounds, BMI 53.7. Skeletal muscle mass decreased 3.5 pounds, visceral adipose tissue decreased from 7.1-6.3, waist circumference decreased from 62 to 59.5 inches, fat mass decreased 8 pounds. 03/22/2025: Weight 332.2 pounds, BMI 51.8. Skeletal muscle mass decreased 1 pound, fat mass decreased 6 pounds, visceral adipose tissue went from 6.3-6.5, hydration decreased as well. 04/19/2025: Weight 324.6 pounds, BMI 50.6. Skeletal muscle mass maintained, hydration increased, fat mass decreased 10 pounds. 05/24/2025: Weight 312.9 pounds, BMI 48.8. Congratulated on effort. Continues on Zepbound 7.5 mg weekly injections. Skeletal muscle mass decreased less than 1 pound, fat mass decreased 9 pounds. Discussed exercise, hydration, protein goals. Plan to continue Zepbound 7.5 mg weekly injections. Follow-up in 4 to 6 weeks. #Hypertension: BP Controlled today, BP 130/88. Patient states at home on average her [...] worsen, as we can provide additional resources. Total time spent today was 30 minutes of which greater than 50% was spent on coordinating and counseling Case discussed with collaborating physician Oksana Cullen who reviewed the assessment and plan. Chart, medications, labs, vital signs reviewed. Dictation was accomplished with the use of [employer] voice recognition software, prone to medical misidentificatio ns and grammatical errors. This is unintentional and the practitioner does try to identify and correct these, but some could still be present. Please do not hesitate to contact practitioner for clarification. All questions answered to patients satisfaction. Patient verbalized understanding of diagnosis and treatments explained. To call sooner prior to next visit it any questions/concer ns arise. 05/24/2025 Essential hypertension (ICD-10 - I10) Luciana is a 38-year-old female who presents for weight management f/u. Medical history, labs, allergies, medications, and social [...] obesity: 12/17/2024: Weight 365.1 pounds, BMI 57.18. 01/14/2025: Weight 361.6 pounds, BMI 56.63. She lost 4 pounds overall, fat mass decreased 6 pounds, skeletal muscle mass remained the same, visceral adipose tissue increased 1 point. 02/22/2025: Weight 344.3 pounds, BMI 53.7. Skeletal muscle mass decreased 3.5 pounds, visceral adipose tissue decreased from 7.1-6.3, waist circumference decreased from 62 to 59.5 inches, fat mass decreased 8 pounds. 03/22/2025: Weight 332.2 pounds, BMI 51.8. Skeletal muscle mass decreased 1 pound, fat mass decreased 6 pounds, visceral adipose tissue went from 6.3-6.5, hydration decreased as well. 04/19/2025: Weight 324.6 pounds, BMI 50.6. Skeletal muscle mass maintained, hydration increased, fat mass decreased 10 pounds. 05/24/2025: Weight 312.9 pounds, BMI 48.8. Congratulated on effort. Continues on Zepbound 7.5 mg weekly injections. Skeletal muscle mass decreased less than 1 pound, fat mass decreased 9 pounds. Discussed exercise, hydration, protein goals. Plan to continue Zepbound 7.5 mg weekly injections. Follow-up in 4 to 6 weeks. #Hypertension: BP Controlled today, BP 130/88. Patient states at home on average her [...] worsen, as we can provide additional resources. Total time spent today was 30 minutes of which greater than 50% was spent on coordinating and counseling Case discussed with collaborating physician Oksana Cullen who reviewed the assessment and plan. Chart, medications, labs, vital signs reviewed. Dictation was accomplished with the use of [employer] voice recognition software, prone to medical misidentificatio ns and grammatical errors. This is unintentional and the practitioner does try to identify and correct these, but some could still be present. Please do not hesitate to contact practitioner for clarification. All questions answered to patients satisfaction. Patient verbalized understanding of diagnosis and treatments explained. To call sooner prior to next visit it any questions/concer ns arise. 05/24/2025 Prediabetes (ICD-10 - R73.03) Luciana is a 38-year-old female who presents for weight management f/u. Medical history, labs, allergies, medications, and social [...] obesity: 12/17/2024: Weight 365.1 pounds, BMI 57.18. 01/14/2025: Weight 361.6 pounds, BMI 56.63. She lost 4 pounds overall, fat mass decreased 6 pounds, skeletal muscle mass remained the same, visceral adipose tissue increased 1 point. 02/22/2025: Weight 344.3 pounds, BMI 53.7. Skeletal muscle mass decreased 3.5 pounds, visceral adipose tissue decreased from 7.1-6.3, waist circumference decreased from 62 to 59.5 inches, fat mass decreased 8 pounds. 03/22/2025: Weight 332.2 pounds, BMI 51.8. Skeletal muscle mass decreased 1 pound, fat mass decreased 6 pounds, visceral adipose tissue went from 6.3-6.5, hydration decreased as well. 04/19/2025: Weight 324.6 pounds, BMI 50.6. Skeletal muscle mass maintained, hydration increased, fat mass decreased 10 pounds. 05/24/2025: Weight 312.9 pounds, BMI 48.8. Congratulated on effort. Continues on Zepbound 7.5 mg weekly injections. Skeletal muscle mass decreased less than 1 pound, fat mass decreased 9 pounds. Discussed exercise, hydration, protein goals. Plan to continue Zepbound 7.5 mg weekly injections. Follow-up in 4 to 6 weeks. #Hypertension: BP Controlled today, BP 130/88. Patient states at home on average her [...] worsen, as we can provide additional resources. Total time spent today was 30 minutes of which greater than 50% was spent on coordinating and counseling Case discussed with collaborating physician Oksana Cullen who reviewed the assessment and plan. Chart, medications, labs, vital signs reviewed. Dictation was accomplished with the use of [employer] voice recognition software, prone to medical misidentificatio ns and grammatical errors. This is unintentional and the practitioner does try to identify and correct these, but some could still be present. Please do not hesitate to contact practitioner for clarification. All questions answered to patients satisfaction. Patient verbalized understanding of diagnosis and treatments explained. To call sooner prior to next visit it any questions/concer ns arise. 05/24/2025 Anxiety, generalized (ICD-10 - F41.1) Luciana is a 38-year-old female who presents for weight management f/u. Medical history, labs, allergies, medications, and social [...] obesity: 12/17/2024: Weight 365.1 pounds, BMI 57.18. 01/14/2025: Weight 361.6 pounds, BMI 56.63. She lost 4 pounds overall, fat mass decreased 6 pounds, skeletal muscle mass remained the same, visceral adipose tissue increased 1 point. 02/22/2025: Weight 344.3 pounds, BMI 53.7. Skeletal muscle mass decreased 3.5 pounds, visceral adipose tissue decreased from 7.1-6.3, waist circumference decreased from 62 to 59.5 inches, fat mass decreased 8 pounds. 03/22/2025: Weight 332.2 pounds, BMI 51.8. Skeletal muscle mass decreased 1 pound, fat mass decreased 6 pounds, visceral adipose tissue went from 6.3-6.5, hydration decreased as well. 04/19/2025: Weight 324.6 pounds, BMI 50.6. Skeletal muscle mass maintained, hydration increased, fat mass decreased 10 pounds. 05/24/2025: Weight 312.9 pounds, BMI 48.8. Congratulated on effort. Continues on Zepbound 7.5 mg weekly injections. Skeletal muscle mass decreased less than 1 pound, fat mass decreased 9 pounds. Discussed exercise, hydration, protein goals. Plan to continue Zepbound 7.5 mg weekly injections. Follow-up in 4 to 6 weeks. #Hypertension: BP Controlled today, BP 130/88. Patient states at home on average her [...] worsen, as we can provide additional resources. Total time spent today was 30 minutes of which greater than 50% was spent on coordinating and counseling Case discussed with collaborating physician Oksana Cullen who reviewed the assessment and plan. Chart, medications, labs, vital signs reviewed. Dictation was accomplished with the use of [employer] voice recognition software, prone to medical misidentificatio ns and grammatical errors. This is unintentional and the practitioner does try to identify and correct these, but some could still be present. Please do not hesitate to contact practitioner for clarification. All questions answered to patients satisfaction. Patient verbalized understanding of diagnosis and treatments explained. To call sooner prior to next visit it any questions/concer ns arise. 05/24/2025 Nausea (ICD-10 - R11.0) Luciana is a 38-year-old female who presents for weight management f/u. Medical history, labs, allergies, medications, and social [...] obesity: 12/17/2024: Weight 365.1 pounds, BMI 57.18. 01/14/2025: Weight 361.6 pounds, BMI 56.63. She lost 4 pounds overall, fat mass decreased 6 pounds, skeletal muscle mass remained the same, visceral adipose tissue increased 1 point. 02/22/2025: Weight 344.3 pounds, BMI 53.7. Skeletal muscle mass decreased 3.5 pounds, visceral adipose tissue decreased from 7.1-6.3, waist circumference decreased from 62 to 59.5 inches, fat mass decreased 8 pounds. 03/22/2025: Weight 332.2 pounds, BMI 51.8. Skeletal muscle mass decreased 1 pound, fat mass decreased 6 pounds, visceral adipose tissue went from 6.3-6.5, hydration decreased as well. 04/19/2025: Weight 324.6 pounds, BMI 50.6. Skeletal muscle mass maintained, hydration increased, fat mass decreased 10 pounds. 05/24/2025: Weight 312.9 pounds, BMI 48.8. Congratulated on effort. Continues on Zepbound 7.5 mg weekly injections. Skeletal muscle mass decreased less than 1 pound, fat mass decreased 9 pounds. Discussed exercise, hydration, protein goals. Plan to continue Zepbound 7.5 mg weekly injections. Follow-up in 4 to 6 weeks. #Hypertension: BP Controlled today, BP 130/88. Patient states at home on average her [...] worsen, as we can provide additional resources. Total time spent today was 30 minutes of which greater than 50% was spent on coordinating and counseling Case discussed with collaborating physician Oksana Cullen who reviewed the assessment and plan. Chart, medications, labs, vital signs reviewed. Dictation was accomplished with the use of [employer] voice recognition software, prone to medical misidentificatio ns and grammatical errors. This is unintentional and the practitioner does try to identify and correct these, but some could still be present. Please do not hesitate to contact practitioner for clarification. All questions answered to patients satisfaction. Patient verbalized understanding of diagnosis and treatments explained. To call sooner prior to next visit it any questions/concer ns arise. 05/24/2025 Heartburn (ICD-10 - R12) Luciana is a 38-year-old female who presents for weight management f/u. Medical history, labs, allergies, medications, and social [...] obesity: 12/17/2024: Weight 365.1 pounds, BMI 57.18. 01/14/2025: Weight 361.6 pounds, BMI 56.63. She lost 4 pounds overall, fat mass decreased 6 pounds, skeletal muscle mass remained the same, visceral adipose tissue increased 1 point. 02/22/2025: Weight 344.3 pounds, BMI 53.7. Skeletal muscle mass decreased 3.5 pounds, visceral adipose tissue decreased from 7.1-6.3, waist circumference decreased from 62 to 59.5 inches, fat mass decreased 8 pounds. 03/22/2025: Weight 332.2 pounds, BMI 51.8. Skeletal muscle mass decreased 1 pound, fat mass decreased 6 pounds, visceral adipose tissue went from 6.3-6.5, hydration decreased as well. 04/19/2025: Weight 324.6 pounds, BMI 50.6. Skeletal muscle mass maintained, hydration increased, fat mass decreased 10 pounds. 05/24/2025: Weight 312.9 pounds, BMI 48.8. Congratulated on effort. Continues on Zepbound 7.5 mg weekly injections. Skeletal muscle mass decreased less than 1 pound, fat mass decreased 9 pounds. Discussed exercise, hydration, protein goals. Plan to continue Zepbound 7.5 mg weekly injections. Follow-up in 4 to 6 weeks. #Hypertension: BP Controlled today, BP 130/88. Patient states at home on average her [...] worsen, as we can provide additional resources. Total time spent today was 30 minutes of which greater than 50% was spent on coordinating and counseling Case discussed with collaborating physician Oksana Cullen who reviewed the assessment and plan. Chart, medications, labs, vital signs reviewed. Dictation was accomplished with the use of [employer] voice recognition software, prone to medical misidentificatio ns and grammatical errors. This is unintentional and the practitioner does try to identify and correct these, but some could still be present. Please do not hesitate to contact practitioner for clarification. All questions answered to patients satisfaction. Patient verbalized understanding of diagnosis and treatments explained. To call sooner prior to next visit it any questions/concer ns arise. 05/24/2025 Encounter for examination of blood pressure without abnormal findings (ICD-10 - Z01.30) Luciana is a 38-year-old female who presents for weight management f/u. Medical history, labs, allergies, medications, and social [...] obesity: 12/17/2024: Weight 365.1 pounds, BMI 57.18. 01/14/2025: Weight 361.6 pounds, BMI 56.63. She lost 4 pounds overall, fat mass decreased 6 pounds, skeletal muscle mass remained the same, visceral adipose tissue increased 1 point. 02/22/2025: Weight 344.3 pounds, BMI 53.7. Skeletal muscle mass decreased 3.5 pounds, visceral adipose tissue decreased from 7.1-6.3, waist circumference decreased from 62 to 59.5 inches, fat mass decreased 8 pounds. 03/22/2025: Weight 332.2 pounds, BMI 51.8. Skeletal muscle mass decreased 1 pound, fat mass decreased 6 pounds, visceral adipose tissue went from 6.3-6.5, hydration decreased as well. 04/19/2025: Weight 324.6 pounds, BMI 50.6. Skeletal muscle mass maintained, hydration increased, fat mass decreased 10 pounds. 05/24/2025: Weight 312.9 pounds, BMI 48.8. Congratulated on effort. Continues on Zepbound 7.5 mg weekly injections. Skeletal muscle mass decreased less than 1 pound, fat mass decreased 9 pounds. Discussed exercise, hydration, protein goals. Plan to continue Zepbound 7.5 mg weekly injections. Follow-up in 4 to 6 weeks. #Hypertension: BP Controlled today, BP 130/88. Patient states at home on average her [...] worsen, as we can provide additional resources. Total time spent today was 30 minutes of which greater than 50% was spent on coordinating and counseling Case discussed with collaborating physician Oksana Cullen who reviewed the assessment and plan. Chart, medications, labs, vital signs reviewed. Dictation was accomplished with the use of [employer] voice recognition software, prone to medical misidentificatio ns and grammatical errors. This is unintentional and the practitioner does try to identify and correct these, but some could still be present. Please do not hesitate to contact practitioner for clarification. All questions answered to patients satisfaction. Patient verbalized understanding of diagnosis and treatments explained. To call sooner prior to next visit it any questions/concer ns arise. Plan Of Treatment Medication Medication Name Sig Start Date Stop Date Notes Pantoprazole Sodium 20 MG Tablet Delayed Release 1 tablet 1/2 to 1 hour before morning meal Orally Once a day; Duration: 30 days 03/22/2025 Zepbound 7.5 MG/0.5ML Solution Auto-injector inject 7.5 mg Subcutaneous weekly; Duration: 28 days Next Appt Details Follow Up: 4 Weeks, Reason: Provider Name:FERNANDO JEAN BAPTISTE , 06/23/2025 08:30:00 AM, [address] [place] [address], [facility] [address], [place], [address], History and Physical Notes * HPI (History of Present Illness) Category Sub-Category Detail Notes Category Not es Constitutional Luciana is a 39-year-old female with past medical history of obesity and hypertension who presents for weight management follow-up. She continues on Zepbound 7.5 mg weekly injections. Reports compliance. She has ongoing side effect of belching and heartburn for which she utilizes Pantoprazole for which provide some relief. She reports cravings are gradually returning. Reports adequate appetite suppression. Exercise: Continues current regimen of 30 minutes/day at work, including aerobic dancing, different sports, and walking with disabled adults Diet: turkey, chicken, skips breakfast, bolivian yogurt protein shakes Weight last visit: 324.6 pounds, BMI 50.6 Weight today: 312.9 pounds, BMI 48.8 Reviewed body composition scan, skeletal muscle mass decreased less than 1 pound, visceral adipose tissue went from 6.1-4.3, hydration maintained, fat mass decreased 9 pounds. Physical Examination Category Sub-Category Detail Notes Section Note s General: Age appropriate, well appearing, no acute distress, speaking in full sentences without respiratory compromise. Well groomed, well developed. Alert, Interactive. Skin: Warm, dry and intact. No lesions/rashes/erythema. HEENT: Normocephalic/atraumatic. Neck/Thyroid: Supple, with no lymphadenopathy. Full ROM. Lung: Clear to auscultation bilaterally, no wheezes, rales or rhonchi. No barrel chest. Equal chest rise and fall bilaterally. Cardiac: RRR, S1 and S2 appreciated. No murmurs/rubs or gallops. Extremities: Bilateral lower extremities with no edema or rubor. No evidence of varicose veins. Equal tone bilaterally. Neuro: CN II-XI grossly intact. Steady gait with ambulation observed. Psych: Stable mood and affect Progress Notes * ILSAKYLIEIdalmisDOB: 4 (39 yo F)Acc No.[id number]:05/24/2025 Patient: Idalmis Moffett Provider: Chyna Shirley PA-C :1985 A ge:39 Y S ex:Female Date:05/24/2025 Address:[address] [place] [address] [id number] Pcp:Kike Slaughter Subjective: * Chief Complaints: * 1 . Patient seen in office for weight management follow up visit with sebastian torres . * HPI: C onstitutional: Luciana is a 39-year-old female with past medical history of obesity and hypertension who presents for weight management follow-up. She continues on Zepbound 7.5 mg weekly injections. Reports compliance. She has ongoing side effect of belching and heartburn for which she utilizes Pantoprazole for which provide some relief. She reports cravings are gradually returning. Reports adequate appetite suppression. Exercise: Continues current regimen of 30 minutes/day at work, including aerobic dancing, different sports, and walking with disabled adults Diet: turkey, chicken, skips breakfast, bolivian yogurt protein shakes Weight last visit: 324.6 pounds, BMI 50.6 Weight today: 312.9 pounds, BMI 48.8 Reviewed body composition scan, skeletal muscle mass decreased less than 1 pound, visceral adipose tissue went from 6.1-4.3, hydration maintained, fat mass decreased 9 pounds. * ROS: R OS: Constitutional: Patient denies any excessive fatigue with exercise, no weight loss, no fever, no night sweats, no changes in sleep. Eyes: No eye discharge, no itching, no redness, no vision changes. Advised the significance of regular eye exams to screen for glaucoma and other eye problems. Ear nose throat: No ear pain, No sore throat, no postnasal drip, no runny nose, no sneezing, no hearing changes Cardiovascular: No chest pain, no dyspnea on exertion, no PND, no orthopnea, no irregular pulse, no palpitations, no claudication, no diaphoresis, no claudication. Respiratory: No chronic cough, no hemoptysis, no sputum, no wheezing, no SOB, no pleuritic pain. GI: +belching, No diarrhea, no constipation, no blood in the stools, no pain associated with eating, no indigestion, no difficulty swallowing, no appetite change. Genitourinary: No painful urination, no hesitancy, no blood in the urine, no incontinence, no frequency, no urgency, no abnormal discharge. Musculoskeletal: No back pain, no joint pain, no limitations to walking and running, no joint deformity, no joint stiffness, no muscle weakness Integumentary: No new skin rash. No new changes in skin moles, no pruritis, no color change. Neurological: No history of seizures, no memory loss, no language dysfunction, no inability to concentrate, no localized weakness, no sensation loss, no confusion, no dizziness, no tremor, no numbness, no tingling. Psychiatric: +anxiety, no depression, no suicidal thoughts, feels safe at home. Endocrine: No polyuria, no polyphagia, no polydipsia. No heat/cold intolerance, no excesss thirst. Hematological: No easy bruising or bleeding, no lymph node swelling. * Medical History: * Surgical History: * Hospitalization/Major Diagno stic Procedure: * Family History: F ather: alive 77 yrs, bipolar, high cholestrol, skin cancer. M other: alive 67 yrs, hypertension, osteoporosis. 1 sister(s) . . F amily History Verified.. Family hx- Skin cancer, hypertension, osteoporosis, diabetes, mental disease (anxiety, depression) Mother- Hypertension, osteoporosis Father- Skin cancer, bipolar, high cholestrol. * Social History: T obacco Use: T obacco use other than smoking A re you an other tobacco user? Y es. T obacco Control (Standard) T obacco use: C urrent smoker, H ow many cigarettes a day do you smoke? 5 or less, H ow soon after you wake up do you smoke your first cigarette? 6 -30 minutes, A re you interested in quitting? N ot ready to quit. Social History Verified. a lcohol: none tobacco: 0.25 PPD x2 years marijuana: daily. * Medications: T aking Probiotic 250 MG Capsule as directed Orally daily , Taking Imipramine HCl 50 MG Tablet 1 tablet 1 hour before bedtime Orally Once a day , Taking LORazepam 0.5 MG Tablet 1 tablet at bedtime as needed Orally Once a day , Taking Atenolol 25 MG Tablet 1 tablet Orally Once a day , Taking Ondansetron 4 MG Tablet Disintegrating 1 tablet on the tongue and allow to dissolve Orally Once a day As needed, Taking Pantoprazole Sodium 20 MG Tablet Delayed Release 1 tablet 1/2 to 1 hour before morning meal Orally Once a day , Taking Zepbound 7.5 MG/0.5ML Solution Auto-injector inject 7.5 mg Subcutaneous weekly , Not-Taking NexIUM 20 MG Capsule Delayed Release 1 capsule 1/2 to 1 hour before morning meal Orally Once a day , Medication List reviewed and reconciled with the patient * Allergies: N .K.D.A. Allergies Verified. Objective: * Vitals: H R:89/min, BP:130/88mm Hg, Wt:312.9lbs, BMI:49Index, Ht: 67 in, Oxygen sat %:98%. * Physical Examination: G eneral: Age appropriate, well appearing, no acute distress, speaking in full sentences without respiratory compromise. Well groomed, well developed. Alert, Interactive. Skin: Warm, dry and intact. No lesions/rashes/erythema. HEENT: Normocephalic/atraumatic. Neck/Thyroid: Supple, with no lymphadenopathy. Full ROM. Lung: Clear to auscultation bilaterally, no wheezes, rales or rhonchi. No barrel chest. Equal chest rise and fall bilaterally. Cardiac: RRR, S1 and S2 appreciated. No murmurs/rubs or gallops. Extremities: Bilateral lower extremities with no edema or rubor. No evidence of varicose veins. Equal tone bilaterally. Neuro: CN II-XI grossly intact. Steady gait with ambulation observed. Psych: Stable mood and affect. Assessment: * Assessment: 1. M orbid obesity - E66.01 (Primary) 2 . B MS 45.0-49.9, adult - Z68.42? 3. E ssential hypertension - I10 4 . P rediabetes - R73.03? 5. A nxiety, generalized - F41.1 6 . N ausea - R11.0 & #160; 7 . H eartburn - R12 8 . E ncounter for examination of blood pressure without abnormal findings - Z01.30 Luciana is a 38-year-old femal e who presents for weight management f/u. Medical history, labs, allergies, medications, and social [...] obesity: 12/17/2024: Weight 365.1 pounds, BMI 57.18. 01/14/2025: Weight 361.6 pounds, BMI 56.63. She lost 4 pounds overall, fat mass decreased 6 pounds, skeletal muscle mass remained the same, visceral adipose tissue increased 1 point. 02/22/2025: Weight 344.3 pounds, BMI 53.7. Skeletal muscle mass decreased 3.5 pounds, visceral adipose tissue decreased from 7.1-6.3, waist circumference decreased from 62 to 59.5 inches, fat mass decreased 8 pounds. 03/22/2025: Weight 332.2 pounds, BMI 51.8. Skeletal muscle mass decreased 1 pound, fat mass decreased 6 pounds, visceral adipose tissue went from 6.3-6.5, hydration decreased as well. 04/19/2025: Weight 324.6 pounds, BMI 50.6. Skeletal muscle mass maintained, hydration increased, fat mass decreased 10 pounds. 05/24/2025: Weight 312.9 pounds, BMI 48.8. Congratulated on effort. Continues on Zepbound 7.5 mg weekly injections. Skeletal muscle mass decreased less than 1 pound, fat mass decreased 9 pounds. Discussed exercise, hydration, protein goals. Plan to continue Zepbound 7.5 mg weekly injections. Follow-up in 4 to 6 weeks. #Hypertension: BP Controlled today, BP 130/88. Patient states at home on average her [...] worsen, as we can provide additional resources. Total time spent today was 30 minutes of which greater than 50% was spent on coordinating and counseling Case discussed with collaborating physician Oksana Cullen who reviewed the assessment and plan. Chart, medications, labs, vital signs reviewed. Dictation was accomplished with the use of [employer] voice recognition software, prone to medical misidentifications and grammatical errors. This is unintentional and the practitioner does try to identify and correct these, but some could still be present. Please do not hesitate to contact practitioner for clarification. All questions answered to patients satisfaction. Patient verbalized understanding of diagnosis and treatments explained. To call sooner prior to next visit it any questions/concerns arise. Plan: * Treatment: 2. H eartburn Refill Pantoprazole Sodium Tablet Delayed Release, 20 MG, 1 tablet 1/2 to 1 hour before morning meal, Orally, Once a day, 30 days, 30, Refills 3. * Procedure Codes: 3 079F DIAST BP 80-89 MM HG, 3075F SYST BP GE 130 - 139MM HG * Follow Up: 4 Weeks Billing Information: * Visit Code: 93011 Office Visit, Est Pt., Level 4. Modifiers: SA * Procedure Codes: 3079F DIAST BP 80-89 MM HG. 3075F SYST BP GE 130 - 139MM HG. * Sign off status: Completed true * Provider: Chyna Shirley PA-C Date: 07/24/2024 Generated for Varsha burgess/Ap/Adeitting on: 07/27/2024 07:41 AM EST
--- NOTE | ~2025-05-27 | MM_ITS ---
EXAMINATION: MM SCREENING DIGITAL BREAST TOMOSYNTHESIS, BILATERAL CLINICAL INFORMATION: Screening. Asymptomatic. COMPARISON: Mammography: Comparison is made with available priors TECHNIQUE: Digital breast mammography with tomosynthesis is performed in both the craniocaudal and mediolateral oblique views along with computer-aided detection (CAD). FINDINGS: There are scattered areas of fibroglandular density. There are no significant masses, abnormal calcifications, or other abnormalities. MM/MM tomosynthesis screening BI IMPRESSION: No mammographic evidence of malignancy. ASSESSMENT: BI-RADS Category 1: Negative RECOMMENDATION: Routine annual mammography screening. 1 year F/U This examination should not preclude the clinical evaluation of a suspicious palpable abnormality. This patient's information was entered into a reminder system with a target due date for their next mammogram. Electronically signed by: Allyson James DO 05/27/2025 08:36 AM SHANNEN
--- OUTSIDE RECORDS SUMMARY | 2025-05-27 07:41 | XMS_ITS | Patient Health Record ---
Author Organization [facility] [address] Address [address] [place] [address] Care Team Providers Care Content Producer Name Role Phone Kike Slaughter Primary Care Provider Erlinda Noel Unavailable [phone] Allergies No Known Allergies Reason For Referral [...] mg Subcutaneous weekly; Duration: 28 days Active Ondansetron 4 MG Tablet Disintegrating 1 tablet on the tongue and allow to dissolve Orally Once a day; Duration: 30 days As needed 03/22/2025 Active NexIUM 20 MG Capsule Delayed Release 1 capsule 1/2 to 1 hour before morning meal Orally Once a day 02/22/2025 Not-Taking Imipramine HCl 50 MG Tablet 1 tablet 1 hour before bedtime Orally Once a day Active Atenolol 25 MG Tablet 1 tablet Orally On ce a day Active LORazepam 0.5 MG Tablet 1 tablet at bedt margarita as needed Orally Once a day Active Social History Tobacco Use: Social History Observation Description Date Details (start date - stop date) Current Smoker NA - NA Social History Drugs/Alcohol: Social Info Question Answer Notes Drugs Have you used drugs other than those for medical reasons in the past 12 months? Yes Drug/Alcohol: Social Info Question Answer Notes AUDIT-C (Standard) Did you have a drink containing alcohol in the past year? No Points 0 Interpretation Negative Tobacco Use: Social Info Question Answer Notes Tobacco Control (Standard) Tobacco use: Current smoker How many cigarettes a day do you smoke? 5 or less How soon after you wake up do you smoke your first cigarette? 6-30 minutes Are you interested in quitting? Not ready to quit Tobacco use other than smoking: Are you an other tobac co user? Yes Additional Details Category Social Info Options Details Drugs/Alcohol: Do you smoke marijuana? Ad mits Do you drink alcohol? No Section Notes: alcohol: none tobacco: 0.25 PPD [...] Status Risk Notes Problem Abnormal blood pressure (72735618) Encounter for examination of blood pressure with abnormal findings (Z01.31) Active confirmed Problem Essential hypertension (24443186) Essential hypertension (I10) Active confirmed Problem Morbid obesity (894207482) Morbid obesity (E66.01) Active confirmed Problem Body mass index 40+ - severely obese (097150694) BMI 50.0-59.9, adult (Z68.43) Active confirmed Problem Body mass index 40+ - severely obese (995399771) BMI 45.0-49.9, adult (Z68.42) Active confirmed Problem Essential hypertension (35462819) Hypertension, essential (I10) Active confirmed Problem Generalized anxiety disorder (89626522) Anxiety, generalized (F41.1) Active confirmed Vital Signs Heart Rate 89 /min 05/24/2025 Oximetry 98 % 05/24/2025 Blood pressure diastolic 88 mm Hg 05/24/2025 Height 67 in 05/24/2025 Blood pressure systolic 130 mm Hg 05/24/2025 Weight 312.9 lbs 05/24/2025 BMI 49 kg/m2 05/24/2025 Encounters Encounter Location Date Provider Diagnosis [facility] [address] [place] [id number] 12/17/2024 Erlinda Normoyle Morbid obesity E66.0 1 ; BMI 50.0-59.9, adult Z68.43 ; Essential hypertension I10 ; Prediabetes R73.03 ; Anxiety, generalized F41.1 and Encounter for examination of blood pressure with abnormal findings Z01.31 [facility] [address] [address] 01/14/2025 Erlinda Normoyle Morbid obesity E66.0 1 ; BMI 50.0-59.9, adult Z68.43 ; Essential hypertension I10 ; Prediabetes R73.03 ; Anxiety, generalized F41.1 and Encounter for examination of blood pressure with abnormal findings Z01.31 [facility] [address] [address] 02/22/2025 Erlinda Normoyle Morbid obesity E66.0 1 ; BMI 50.0-59.9, adult Z68.43 ; Essential hypertension I10 ; Prediabetes R73.03 ; Anxiety, generalized F41.1 and Encounter for examination of blood pressure without abnormal findings Z01.30 [facility] [address] [address] 03/22/2025 Erlinda Normoyle Morbid obesity E66.0 1 ; BMI 50.0-59.9, adult Z68.43 ; Essential hypertension I10 ; Prediabetes R73.03 ; Anxiety, generalized F41.1 ; Encounter for examination of blood pressure without abnormal findings Z01.30 ; Nausea R11.0 and Heartburn R12 [facility] [address] [address] 04/19/2025 Erlinda Normoyle Morbid obesity E66.0 1 ; BMI 50.0-59.9, adult Z68.43 ; Essential hypertension I10 ; Prediabetes R73.03 ; Anxiety, generalized F41.1 ; Nausea R11.0 ; Heartburn R12 and Encounter for examination of blood pressure without abnormal findings Z01.30 [facility] [address] [address] 05/24/2025 Erlinda Normoyle Morbid obesity E66.0 1 ; BMI 45.0-49.9, adult Z68.42 ; Essential hypertension I10 ; Prediabetes R73.03 ; Anxiety, generalized F41.1 ; Nausea R11.0 ; Heartburn R12 and Encounter for examination of blood pressure without abnormal findings Z01.30 [facility] [address] [facility] [address] [place] [address] 12/17/2024 Erlinda Normoyle [facility] [address] [facility] [address] [place] [address] 12/30/2024 Erlinda Normoyle [facility] [address] [place] [address] 01/03/2025 Erlinda Normoyle [facility] [address] [place] [address] 02/11/2025 Erlinda Normoyle Morbid obesity E66.0 1 [facility] [address] [facility] [address] [place] [address] 04/14/2025 Erlinda Normoyle Morbid obesity E66.0 1 [facility] [address] [facility] [address] [place] [address] 05/11/2025 Erlinda Normoyle Morbid obesity E66.0 1 Assessments [...] 365.1 pounds, BMI 57.18. Patient followed with [facility] weight management program and did lose weight. [...] level. Consider using apps like 7 minute [employer], [employer], lose it, stick as needed for self-monitoring and weight management. Consider group exercises. Consider hiring a review trainer. Regular exercise is arenas to sustainable health [...] counseling and psychiatry and Dr Wyatt at [facility]. We would like to cover regular topics [...] Dictation was accomplished with the use of [employer] voice recognition software, prone to medical misidentifications [...] 365.1 pounds, BMI 57.18. Patient followed with [facility] weight management program and did lose weight. [...] Consider using apps like 7 minute excercise, [employer], lose it, stick as needed for self-monitoring and weight management. Consider group exercises. Consider hiring a review trainer. Regular exercise is arenas to sustainable health [...] counseling and psychiatry and Dr Wyatt at [facility]. We would like to cover regular topics [...] Dictation was accomplished with the use of [employer] voice recognition software, prone to medical misidentifications [...] 365.1 pounds, BMI 57.18. Patient followed with [facility] weight management program and did lose weight. [...] Consider using apps like 7 minute excercise, [employer], lose it, stick as needed for self-monitoring and weight management. Consider group exercises. Consider hiring a review trainer. Regular exercise is arenas to sustainable health [...] counseling and psychiatry and Dr Wyatt at [facility]. We would like to cover regular topics [...] Dictation was accomplished with the use of [employer] voice recognition software, prone to medical misidentifications [...] 365.1 pounds, BMI 57.18. Patient followed with [facility] weight management program and did lose weight. [...] Consider using apps like 7 minute excercise, Bil[employer], lose it, stick as needed for self-monitoring and weight management. Consider group exercises. Consider hiring a review trainer. Regular exercise is arenas to sustainable health [...] counseling and psychiatry and Dr Wyatt at [facility]. We would like to cover regular topics [...] Dictation was accomplished with the use of [employer] voice recognition software, prone to medical misidentifications [...] 365.1 pounds, BMI 57.18. Patient followed with [facility] weight management program and did lose weight. [...] Consider using apps like 7 minute excercise, Bil[employer], lose it, stick as needed for self-monitoring and weight management. Consider group exercises. Consider hiring a review trainer. Regular exercise is arenas to sustainable health [...] counseling and psychiatry and Dr Wyatt at [facility]. We would like to cover regular topics [...] Dictation was accomplished with the use of [employer] voice recognition software, prone to medical misidentifications [...] 365.1 pounds, BMI 57.18. Patient followed with [facility] weight management program and did lose weight. [...] Consider using apps like 7 minute excercise, [employer], lose it, stick as needed for self-monitoring and weight management. Consider group exercises. Consider hiring a review trainer. Regular exercise is arenas to sustainable health [...] counseling and psychiatry and Dr Wyatt at [facility]. We would like to cover regular topics [...] Dictation was accomplished with the use of [employer] voice recognition software, prone to medical misidentifications [...] 365.1 pounds, BMI 57.18. Patient followed with [facility] weight management program and did lose weight. [...] Consider using apps like 7 minute excercise, Bilim[employer]al, lose it, stick as needed for self-monitoring and weight management. Consider group exercises. Consider hiring a review trainer. Regular exercise is arenas to sustainable health [...] counseling and psychiatry and Dr Wyatt at [facility]. We would like to cover regular topics [...] Dictation was accomplished with the use of [employer] voice recognition software, prone to medical misidentifications and grammatical errors. This is unintentional and the practitioner does try to identify and correct these, but some could still be present. Please do not hesitate to contact practitioner for clarification. All questions answered to patients satisfaction. Patient verbalized understanding of diagnosis and treatments explained. To call sooner prior to next visit it any questions/concerns arise. 04/19/2025 Morbid obesity (ICD-10 - E66.01) Luciana is [...] 365.1 pounds, BMI 57.18. Patient followed with [facility] weight management program and did lose weight. [...] Zofran and pantoprazole. Follow-up in 4 weeks. 04/19/2025: Weight 324.6 pounds, BMI 50.6. Continues on Zepbound 7.5 mg weekly injections. Congratulated on effort. On review of body composition scan, skeletal muscle mass maintained, hydration increased, fat mass decreased 10 pounds. Discussed exercise, hydration, protein goals. Plan to continue Zepbound 7.5 mg weekly injections. Advised patient to trial 2 tablets of pantoprazole for total of 40 mg daily. Continue Zofran as needed for nausea. Follow-up in 4 weeks. #Hypertension: BP Controlled [...] Consider using apps like 7 minute excercise, [employer], lose it, stick as needed for self-monitoring and weight management. Consider group exercises. Consider hiring a review trainer. Regular exercise is arenas to sustainable health [...] counseling and psychiatry and Dr Wyatt at [facility]. We would like to cover regular topics [...] Dictation was accomplished with the use of [employer] voice recognition software, prone to medical misidentifications and grammatical errors. This is unintentional and the practitioner does try to identify and correct these, but some could still be present. Please do not hesitate to contact practitioner for clarification. All questions answered to patients satisfaction. Patient verbalized understanding of diagnosis and treatments explained. To call sooner prior to next visit it any questions/concerns arise. 04/19/2025 BMI 50.0-59.9, adult (ICD-10 - Z68.43) Luciana [...] 365.1 pounds, BMI 57.18. Patient followed with [facility] weight management program and did lose weight. [...] Zofran and pantoprazole. Follow-up in 4 weeks. 04/19/2025: Weight 324.6 pounds, BMI 50.6. Continues on Zepbound 7.5 mg weekly injections. Congratulated on effort. On review of body composition scan, skeletal muscle mass maintained, hydration increased, fat mass decreased 10 pounds. Discussed exercise, hydration, protein goals. Plan to continue Zepbound 7.5 mg weekly injections. Advised patient to trial 2 tablets of pantoprazole for total of 40 mg daily. Continue Zofran as needed for nausea. Follow-up in 4 weeks. #Hypertension: BP Controlled [...] Consider using apps like 7 minute excercise, [employer], lose it, stick as needed for self-monitoring and weight management. Consider group exercises. Consider hiring a review trainer. Regular exercise is arenas to sustainable health [...] counseling and psychiatry and Dr Wyatt at [facility]. We would like to cover regular topics [...] Dictation was accomplished with the use of [employer] voice recognition software, prone to medical misidentifications and grammatical errors. This is unintentional and the practitioner does try to identify and correct these, but some could still be present. Please do not hesitate to contact practitioner for clarification. All questions answered to patients satisfaction. Patient verbalized understanding of diagnosis and treatments explained. To call sooner prior to next visit it any questions/concerns arise. 05/11/2025 Morbid obesity (ICD-10 - E66.01) 05/24/2025 Morbid obesity (ICD-10 - E66.01) Luciana [...] Dictation was accomplished with the use of [employer] voice recognition software, prone to medical misidentifications and grammatical errors. This is unintentional and the practitioner does try to identify and correct these, but some could still be present. Please do not hesitate to contact practitioner for clarification. All questions answered to patients satisfaction. Patient verbalized understanding of diagnosis and treatments explained. To call sooner prior to next visit it any questions/concerns arise. 05/24/2025 BMI 45.0-49.9, adult (ICD-10 - [...] Dictation was accomplished with the use of [employer] voice recognition software, prone to medical misidentifications and grammatical errors. This is unintentional and the practitioner does try to identify and correct these, but some could still be present. Please do not hesitate to contact practitioner for clarification. All questions answered to patients satisfaction. Patient verbalized understanding of diagnosis and treatments explained. To call sooner prior to next visit it any questions/concerns arise. 05/24/2025 Essential hypertension (ICD-10 - I10) [...] Dictation was accomplished with the use of [employer] voice recognition software, prone to medical misidentifications and grammatical errors. This is unintentional and the practitioner does try to identify and correct these, but some could still be present. Please do not hesitate to contact practitioner for clarification. All questions answered to patients satisfaction. Patient verbalized understanding of diagnosis and treatments explained. To call sooner prior to next visit it any questions/concerns arise. 04/19/2025 Essential hypertension (ICD-10 - I10) Luciana is [...] 365.1 pounds, BMI 57.18. Patient followed with [facility] weight management program and did lose weight. [...] Zofran and pantoprazole. Follow-up in 4 weeks. 04/19/2025: Weight 324.6 pounds, BMI 50.6. Continues on Zepbound 7.5 mg weekly injections. Congratulated on effort. On review of body composition scan, skeletal muscle mass maintained, hydration increased, fat mass decreased 10 pounds. Discussed exercise, hydration, protein goals. Plan to continue Zepbound 7.5 mg weekly injections. Advised patient to trial 2 tablets of pantoprazole for total of 40 mg daily. Continue Zofran as needed for nausea. Follow-up in 4 weeks. #Hypertension: BP Controlled [...] management. Consider group exercises. Consider hiring a review trainer. Regular exercise is arenas to sustainable health [...] counseling and psychiatry and Dr Wyatt at [facility]. We would like to cover regular topics [...] Dictation was accomplished with the use of [employer] voice recognition software, prone to medical misidentifications and grammatical errors. This is unintentional and the practitioner does try to identify and correct these, but some could still be present. Please do not hesitate to contact practitioner for clarification. All questions answered to patients satisfaction. Patient verbalized understanding of diagnosis and treatments explained. To call sooner prior to next visit it any questions/concerns arise. 04/14/2025 Morbid obesity (ICD-10 - E66.01) Electronic Prior Authorization was requested for Zepbound 7.5 MG/0.5ML Solution Auto-injector. Provider can order medication once approval received. 03/22/2025 Essential hypertension (ICD-10 - I10) Luciana [...] 365.1 pounds, BMI 57.18. Patient followed with [facility] weight management program and did lose weight. [...] Consider using apps like 7 minute excercise, Bilim[employer]al, lose it, stick as needed for self-monitoring and weight management. Consider group exercises. Consider hiring a review trainer. Regular exercise is arenas to sustainable health [...] counseling and psychiatry and Dr Wyatt at [facility]. We would like to cover regular topics [...] Dictation was accomplished with the use of [employer] voice recognition software, prone to medical misidentifications [...] 365.1 pounds, BMI 57.18. Patient followed with [facility] weight management program and did lose weight. [...] Consider using apps like 7 minute excercise, [employer], lose it, stick as needed for self-monitoring and weight management. Consider group exercises. Consider hiring a review trainer. Regular exercise is arenas to sustainable health [...] counseling and psychiatry and Dr Wyatt at [facility]. We would like to cover regular topics [...] Dictation was accomplished with the use of [employer] voice recognition software, prone to medical misidentifications [...] 365.1 pounds, BMI 57.18. Patient followed with [facility] weight management program and did lose weight. [...] Consider using apps like 7 minute excercise, [employer], lose it, stick as needed for self-monitoring and weight management. Consider group exercises. Consider hiring a review trainer. Regular exercise is arenas to sustainable health [...] counseling and psychiatry and Dr Wyatt at [facility]. We would like to cover regular topics [...] Dictation was accomplished with the use of [employer] voice recognition software, prone to medical misidentifications [...] 365.1 pounds, BMI 57.18. Patient followed with [facility] weight management program and did lose weight. [...] Consider using apps like 7 minute excercise, [employer], lose it, stick as needed for self-monitoring and weight management. Consider group exercises. Consider hiring a review trainer. Regular exercise is arenas to sustainable health [...] counseling and psychiatry and Dr Wyatt at [facility]. We would like to cover regular topics [...] Dictation was accomplished with the use of [employer] voice recognition software, prone to medical misidentifications [...] 365.1 pounds, BMI 57.18. Patient followed with [facility] weight management program and did lose weight. [...] management. Consider group exercises. Consider hiring a review trainer. Regular exercise is arenas to sustainable health [...] counseling and psychiatry and Dr Wyatt at [facility]. We would like to cover regular topics [...] Dictation was accomplished with the use of [employer] voice recognition software, prone to medical misidentifications [...] 365.1 pounds, BMI 57.18. Patient followed with [facility] weight management program and did lose weight. [...] reading books called The Food Rules by Jea nPaul Dixon and Eat Fat Get Lean by [...] Consider using apps like 7 minute excercise, [employer], lose it, stick as needed for self-monitoring and weight management. Consider group exercises. Consider hiring a review trainer. Regular exercise is arenas to sustainable health [...] counseling and psychiatry and Dr Wyatt at [facility]. We would like to cover regular topics [...] Dictation was accomplished with the use of [employer] voice recognition software, prone to medical misidentifications [...] 365.1 pounds, BMI 57.18. Patient followed with [facility] weight management program and did lose weight. [...] Consider using apps like 7 minute excercise, Bilim[employer]al, lose it, stick as needed for self-monitoring and weight management. Consider group exercises. Consider hiring a review trainer. Regular exercise is arenas to sustainable health [...] counseling and psychiatry and Dr Wyatt at [facility]. We would like to cover regular topics [...] Dictation was accomplished with the use of [employer] voice recognition software, prone to medical misidentifications [...] 365.1 pounds, BMI 57.18. Patient followed with [facility] weight management program and did lose weight. [...] Consider using apps like 7 minute excercise, [employer], lose it, stick as needed for self-monitoring and weight management. Consider group exercises. Consider hiring a review trainer. Regular exercise is arenas to sustainable health [...] counseling and psychiatry and Dr Wyatt at [facility]. We would like to cover regular topics [...] Dictation was accomplished with the use of [employer] voice recognition software, prone to medical misidentifications and grammatical errors. This is unintentional and the practitioner does try to identify and correct these, but some could still be present. Please do not hesitate to contact practitioner for clarification. All questions answered to patients satisfaction. Patient verbalized understanding of diagnosis and treatments explained. To call sooner prior to next visit it any questions/concerns arise. 04/19/2025 Prediabetes (ICD-10 - R73.03) Luciana is a [...] 365.1 pounds, BMI 57.18. Patient followed with [facility] weight management program and did lose weight. [...] Zofran and pantoprazole. Follow-up in 4 weeks. 04/19/2025: Weight 324.6 pounds, BMI 50.6. Continues on Zepbound 7.5 mg weekly injections. Congratulated on effort. On review of body composition scan, skeletal muscle mass maintained, hydration increased, fat mass decreased 10 pounds. Discussed exercise, hydration, protein goals. Plan to continue Zepbound 7.5 mg weekly injections. Advised patient to trial 2 tablets of pantoprazole for total of 40 mg daily. Continue Zofran as needed for nausea. Follow-up in 4 weeks. #Hypertension: BP Controlled [...] management. Consider group exercises. Consider hiring a review trainer. Regular exercise is arenas to sustainable health [...] counseling and psychiatry and Dr Wyatt at [facility]. We would like to cover regular topics [...] Dictation was accomplished with the use of [employer] voice recognition software, prone to medical misidentifications and grammatical errors. This is unintentional and the practitioner does try to identify and correct these, but some could still be present. Please do not hesitate to contact practitioner for clarification. All questions answered to patients satisfaction. Patient verbalized understanding of diagnosis and treatments explained. To call sooner prior to next visit it any questions/concerns arise. 05/24/2025 Prediabetes (ICD-10 - R73.03) Luciana [...] Dictation was accomplished with the use of [employer] voice recognition software, prone to medical misidentifications and grammatical errors. This is unintentional and the practitioner does try to identify and correct these, but some could still be present. Please do not hesitate to contact practitioner for clarification. All questions answered to patients satisfaction. Patient verbalized understanding of diagnosis and treatments explained. To call sooner prior to next visit it any questions/concerns arise. 05/24/2025 Anxiety, generalized (ICD-10 - F41.1) [...] Dictation was accomplished with the use of [employer] voice recognition software, prone to medical misidentifications and grammatical errors. This is unintentional and the practitioner does try to identify and correct these, but some could still be present. Please do not hesitate to contact practitioner for clarification. All questions answered to patients satisfaction. Patient verbalized understanding of diagnosis and treatments explained. To call sooner prior to next visit it any questions/concerns arise. 04/19/2025 Anxiety, generalized (ICD-10 - F41.1) Luciana is [...] 365.1 pounds, BMI 57.18. Patient followed with [facility] weight management program and did lose weight. [...] Zofran and pantoprazole. Follow-up in 4 weeks. 04/19/2025: Weight 324.6 pounds, BMI 50.6. Continues on Zepbound 7.5 mg weekly injections. Congratulated on effort. On review of body composition scan, skeletal muscle mass maintained, hydration increased, fat mass decreased 10 pounds. Discussed exercise, hydration, protein goals. Plan to continue Zepbound 7.5 mg weekly injections. Advised patient to trial 2 tablets of pantoprazole for total of 40 mg daily. Continue Zofran as needed for nausea. Follow-up in 4 weeks. #Hypertension: BP Controlled [...] Consider using apps like 7 minute excercise, [employer], lose it, stick as needed for self-monitoring and weight management. Consider group exercises. Consider hiring a review trainer. Regular exercise is arenas to sustainable health [...] counseling and psychiatry and Dr Wyatt at [facility]. We would like to cover regular topics [...] Dictation was accomplished with the use of [employer] voice recognition software, prone to medical misidentifications [...] 365.1 pounds, BMI 57.18. Patient followed with [facility] weight management program and did lose weight. [...] Consider using apps like 7 minute excercise, [employer], lose it, stick as needed for self-monitoring and weight management. Consider group exercises. Consider hiring a review trainer. Regular exercise is arenas to sustainable health [...] counseling and psychiatry and Dr Wyatt at [facility]. We would like to cover regular topics [...] Dictation was accomplished with the use of [employer] voice recognition software, prone to medical misidentifications [...] 365.1 pounds, BMI 57.18. Patient followed with [facility] weight management program and did lose weight. [...] Consider using apps like 7 minute excercise, [employer], lose it, stick as needed for self-monitoring and weight management. Consider group exercises. Consider hiring a review trainer. Regular exercise is arenas to sustainable health [...] counseling and psychiatry and Dr Wyatt at [facility]. We would like to cover regular topics [...] Dictation was accomplished with the use of [employer] voice recognition software, prone to medical misidentifications [...] 365.1 pounds, BMI 57.18. Patient followed with [facility] weight management program and did lose weight. [...] Consider using apps like 7 minute excercise, [employer], lose it, stick as needed for self-monitoring and weight management. Consider group exercises. Consider hiring a review trainer. Regular exercise is arenas to sustainable health [...] counseling and psychiatry and Dr Wyatt at [facility]. We would like to cover regular topics [...] Dictation was accomplished with the use of [employer] voice recognition software, prone to medical misidentifications [...] 365.1 pounds, BMI 57.18. Patient followed with [facility] weight management program and did lose weight. [...] level. Consider using apps like 7 minute [employer]ise, [employer], lose it, stick as needed for self-monitoring and weight management. Consider group exercises. Consider hiring a review trainer. Regular exercise is arenas to sustainable health [...] counseling and psychiatry and Dr Wyatt at [facility]. We would like to cover regular topics [...] Dictation was accomplished with the use of [employer] voice recognition software, prone to medical misidentifications [...] 365.1 pounds, BMI 57.18. Patient followed with [facility] weight management program and did lose weight. [...] Consider using apps like 7 minute excercise, [employer], lose it, stick as needed for self-monitoring and weight management. Consider group exercises. Consider hiring a review trainer. Regular exercise is arenas to sustainable health [...] counseling and psychiatry and Dr Wyatt at [facility]. We would like to cover regular topics [...] Dictation was accomplished with the use of [employer] voice recognition software, prone to medical misidentifications [...] 365.1 pounds, BMI 57.18. Patient followed with [facility] weight management program and did lose weight. [...] Consider using apps like 7 minute excercise, [employer], lose it, stick as needed for self-monitoring and weight management. Consider group exercises. Consider hiring a review trainer. Regular exercise is arenas to sustainable health [...] counseling and psychiatry and Dr Wyatt at [facility]. We would like to cover regular topics [...] Dictation was accomplished with the use of [employer] voice recognition software, prone to medical misidentifications [...] 365.1 pounds, BMI 57.18. Patient followed with [facility] weight management program and did lose weight. [...] Consider using apps like 7 minute excercise, [employer], lose it, stick as needed for self-monitoring and weight management. Consider group exercises. Consider hiring a review trainer. Regular exercise is arenas to sustainable health [...] counseling and psychiatry and Dr Wyatt at [facility]. We would like to cover regular topics [...] Dictation was accomplished with the use of [employer] voice recognition software, prone to medical misidentifications [...] 365.1 pounds, BMI 57.18. Patient followed with [facility] weight management program and did lose weight. [...] Consider using apps like 7 minute excercise, [employer], lose it, stick as needed for self-monitoring and weight management. Consider group exercises. Consider hiring a review trainer. Regular exercise is arenas to sustainable health [...] counseling and psychiatry and Dr Wyatt at [facility]. We would like to cover regular topics [...] Dictation was accomplished with the use of [employer] voice recognition software, prone to medical misidentifications and grammatical errors. This is unintentional and the practitioner does try to identify and correct these, but some could still be present. Please do not hesitate to contact practitioner for clarification. All questions answered to patients satisfaction. Patient verbalized understanding of diagnosis and treatments explained. To call sooner prior to next visit it any questions/concerns arise. 04/19/2025 Nausea (ICD-10 - R11.0) Luciana is a [...] 365.1 pounds, BMI 57.18. Patient followed with [facility] weight management program and did lose weight. [...] Zofran and pantoprazole. Follow-up in 4 weeks. 04/19/2025: Weight 324.6 pounds, BMI 50.6. Continues on Zepbound 7.5 mg weekly injections. Congratulated on effort. On review of body composition scan, skeletal muscle mass maintained, hydration increased, fat mass decreased 10 pounds. Discussed exercise, hydration, protein goals. Plan to continue Zepbound 7.5 mg weekly injections. Advised patient to trial 2 tablets of pantoprazole for total of 40 mg daily. Continue Zofran as needed for nausea. Follow-up in 4 weeks. #Hypertension: BP Controlled [...] Consider using apps like 7 minute excercise, [employer], lose it, stick as needed for self-monitoring and weight management. Consider group exercises. Consider hiring a review trainer. Regular exercise is arenas to sustainable health [...] counseling and psychiatry and Dr Wyatt at [facility]. We would like to cover regular topics [...] Dictation was accomplished with the use of [employer] voice recognition software, prone to medical misidentifications and grammatical errors. This is unintentional and the practitioner does try to identify and correct these, but some could still be present. Please do not hesitate to contact practitioner for clarification. All questions answered to patients satisfaction. Patient verbalized understanding of diagnosis and treatments explained. To call sooner prior to next visit it any questions/concerns arise. 05/24/2025 Nausea (ICD-10 - R11.0) Luciana [...] Dictation was accomplished with the use of [employer] voice recognition software, prone to medical misidentifications and grammatical errors. This is unintentional and the practitioner does try to identify and correct these, but some could still be present. Please do not hesitate to contact practitioner for clarification. All questions answered to patients satisfaction. Patient verbalized understanding of diagnosis and treatments explained. To call sooner prior to next visit it any questions/concerns arise. 05/24/2025 Heartburn (ICD-10 - R12) Luciana [...] Dictation was accomplished with the use of [employer] voice recognition software, prone to medical misidentifications and grammatical errors. This is unintentional and the practitioner does try to identify and correct these, but some could still be present. Please do not hesitate to contact practitioner for clarification. All questions answered to patients satisfaction. Patient verbalized understanding of diagnosis and treatments explained. To call sooner prior to next visit it any questions/concerns arise. 04/19/2025 Heartburn (ICD-10 - R12) Luciana is a [...] 365.1 pounds, BMI 57.18. Patient followed with [facility] weight management program and did lose weight. [...] Zofran and pantoprazole. Follow-up in 4 weeks. 04/19/2025: Weight 324.6 pounds, BMI 50.6. Continues on Zepbound 7.5 mg weekly injections. Congratulated on effort. On review of body composition scan, skeletal muscle mass maintained, hydration increased, fat mass decreased 10 pounds. Discussed exercise, hydration, protein goals. Plan to continue Zepbound 7.5 mg weekly injections. Advised patient to trial 2 tablets of pantoprazole for total of 40 mg daily. Continue Zofran as needed for nausea. Follow-up in 4 weeks. #Hypertension: BP Controlled [...] Consider using apps like 7 minute excercise, [employer], lose it, stick as needed for self-monitoring and weight management. Consider group exercises. Consider hiring a review trainer. Regular exercise is arenas to sustainable health [...] counseling and psychiatry and Dr Wyatt at [facility]. We would like to cover regular topics [...] Dictation was accomplished with the use of [employer] voice recognition software, prone to medical misidentifications [...] 365.1 pounds, BMI 57.18. Patient followed with [facility] weight management program and did lose weight. [...] Consider using apps like 7 minute excercise, [employer], lose it, stick as needed for self-monitoring and weight management. Consider group exercises. Consider hiring a review trainer. Regular exercise is arenas to sustainable health [...] counseling and psychiatry and Dr Wyatt at [facility]. We would like to cover regular topics [...] Dictation was accomplished with the use of [employer] voice recognition software, prone to medical misidentifications [...] questions/concerns arise. 03/22/2025 Nausea (ICD-10 - R11.0) uLciana is a 38-year-old female who presents for [...] 365.1 pounds, BMI 57.18. Patient followed with [facility] weight management program and did lose weight. [...] Consider using apps like 7 minute excercise, [employer], lose it, stick as needed for self-monitoring and weight management. Consider group exercises. Consider hiring a review trainer. Regular exercise is arenas to sustainable health [...] counseling and psychiatry and Dr Wyatt at [facility]. We would like to cover regular topics [...] Dictation was accomplished with the use of [employer] voice recognition software, prone to medical misidentifications [...] 365.1 pounds, BMI 57.18. Patient followed with [facility] weight management program and did lose weight. [...] Consider using apps like 7 minute excercise, [employer], lose it, stick as needed for self-monitoring and weight management. Consider group exercises. Consider hiring a review trainer. Regular exercise is arenas to sustainable health [...] counseling and psychiatry and Dr Wyatt at [facility]. We would like to cover regular topics [...] Dictation was accomplished with the use of [employer] voice recognition software, prone to medical misidentifications and grammatical errors. This is unintentional and the practitioner does try to identify and correct these, but some could still be present. Please do not hesitate to contact practitioner for clarification. All questions answered to patients satisfaction. Patient verbalized understanding of diagnosis and treatments explained. To call sooner prior to next visit it any questions/concerns arise. 04/19/2025 Encounter for examination of blood pressure without [...] 365.1 pounds, BMI 57.18. Patient followed with [facility] weight management program and did lose weight. [...] Zofran and pantoprazole. Follow-up in 4 weeks. 04/19/2025: Weight 324.6 pounds, BMI 50.6. Continues on Zepbound 7.5 mg weekly injections. Congratulated on effort. On review of body composition scan, skeletal muscle mass maintained, hydration increased, fat mass decreased 10 pounds. Discussed exercise, hydration, protein goals. Plan to continue Zepbound 7.5 mg weekly injections. Advised patient to trial 2 tablets of pantoprazole for total of 40 mg daily. Continue Zofran as needed for nausea. Follow-up in 4 weeks. #Hypertension: BP Controlled [...] Consider using apps like 7 minute excercise, [employer], lose it, stick as needed for self-monitoring and weight management. Consider group exercises. Consider hiring a review trainer. Regular exercise is arenas to sustainable health [...] counseling and psychiatry and Dr Wyatt at [facility]. We would like to cover regular topics [...] Dictation was accomplished with the use of [employer] voice recognition software, prone to medical misidentifications and grammatical errors. This is unintentional and the practitioner does try to identify and correct these, but some could still be present. Please do not hesitate to contact practitioner for clarification. All questions answered to patients satisfaction. Patient verbalized understanding of diagnosis and treatments explained. To call sooner prior to next visit it any questions/concerns arise. 05/24/2025 Encounter for examination of blood [...] Dictation was accomplished with the use of [employer] voice recognition software, prone to medical misidentifications [...] Plan Of Treatment Next Appt Details Provider Name:FERNANDO JEAN BAPTISTE , 06/23/2025 08:30:00 AM, [address], [address], [place], [id number], Insurance Providers Payer Name Payer Address Payer Phone Subscriber Number Group Number Insured Name Patient Relationship to Insured Coverage Start Date Coverage End Date [facility] [address] [place] [address] [phone] [id number] Idalmis Gallegos Self - patient is the insured 3 Medical (General) History Medical History History ICD Code hemorrhoids Hypertension, essential I10 Anxiety, generalized F41.1 Depression F32.A Surgical History Surgery Date(Month/Year) fibroid removal 2004 section 2006, 2008 gallbladder removal 2010 Hospitalization History Reason Date(Month/Year) pneumonia, RSV 2004
== END 2025-05-27 07:40 | disposition home or self-care (01) ==
LOC: HO.MAMMO 07:39
PROVIDERS: PCP Internal Medicine; Visit Provider Internal Medicine
DX: Z12.31 Encounter for screening mammogram for malignant neoplasm of breast (principal)
CPT/HCPCS: 77063; 77067

== ENCOUNTER → 2025-05-27 07:45 | Outpatient (BNV) | payer OTHER, SELFPAY | PROVIDERS: PCP Internal Medicine; Visit Provider Internal Medicine | DX: Z12.31 Encounter for screening mammogram for malignant neoplasm of breast (principal) | CPT/HCPCS: 77063; 77067 ==